=== PATIENT | female | born 1985 | race Caucasian/White ===

== ENCOUNTER → 2017-05-20 15:27 | Outpatient (CLI) | payer OTHER, SELFPAY ==
[2017-05-20 14:38] VITALS: BP 118/84; BMI 22.6
[2017-05-20 17:49] LABS: Calcium,Total 8.4 mg/dL (8.5-10.1); Free T3 2.4 pg/mL (2.18-3.98); T4 Free Direct 1.07 ng/dL (0.76-1.46); Thyroid Stim Hormone (TSH) 2.08 uIU/mL (0.358-3.74)
== END ==
PROVIDERS: Family Provider Family Medicine; PCP Family Medicine; Visit Provider Nurse Practitioner
DX: E03.9 Hypothyroidism, unspecified (principal); E83.51 Hypocalcemia
CPT/HCPCS: 36415; 82310; 82652; 84439; 84443; 84481

== ENCOUNTER → 2017-05-26 15:26 | Outpatient (CLI) | payer OTHER, SELFPAY ==
[2017-05-31 13:00] LABS: HPV Reflexed? NOT INDICATED
== END ==
PROVIDERS: Family Provider Family Medicine; PCP Family Medicine; Visit Provider Obstetrics & Gynecology
DX: Z12.4 Encounter for screening for malignant neoplasm of cervix (principal)
CPT/HCPCS: 88175; G0145

== ENCOUNTER → 2017-10-20 13:24 | Outpatient (CLI) | payer OTHER, SELFPAY ==
[2017-10-20 15:27] LABS: Thyroid Stim Hormone (TSH) 0.09 uIU/mL (0.358-3.74)
== END ==
PROVIDERS: Family Provider Family Medicine; PCP Family Medicine; Visit Provider Family Medicine
DX: E03.9 Hypothyroidism, unspecified (principal)
CPT/HCPCS: 36415; 84443

== ENCOUNTER → 2017-12-03 06:19 | Outpatient (CLI) | payer OTHER, SELFPAY ==
[2017-12-03 07:45] LABS: Free T3 2.6 pg/mL (2.18-3.98); T4 Free Direct 1.09 ng/dL (0.76-1.46); Thyroid Stim Hormone (TSH) 5.03 uIU/mL (0.358-3.74)
== END ==
PROVIDERS: Family Provider Family Medicine; PCP Family Medicine; Visit Provider Nurse Practitioner
DX: E07.9 Disorder of thyroid, unspecified (principal)
CPT/HCPCS: 36415; 84439; 84443; 84481

== ENCOUNTER → 2017-12-21 14:25 | Outpatient (CLI) | payer OTHER, SELFPAY ==
--- NOTE | 2017-12-21 14:27 | US_ITS ---
STUDY: THYROID ULTRASOUND REASON FOR EXAM: Female, 32 years old. Hypothyroidism, difficulty swallowing TECHNIQUE: Ultrasound evaluation of the thyroid was performed with real-time and static yen-scale imaging. COMPARISON: None. FINDINGS: RIGHT LOBE: The right lobe of the thyroid gland measures 3.5 x 1.4 x 1.2 cm. There is a heterogeneous echotexture. There are 4 hypoechoic nodules of the right thyroid lobe located throughout the mid to lower pole, measuring 1.0 x 0.6 x 0.4 cm, 0.5 x 0.5 x 0.3 cm, 0.5 x 0.4 x 0.3 cm, and 0.4 x 0.3 x 0.2 cm. LEFT LOBE: The left lobe of the thyroid gland measures 4.0 x 1.4 x 1.1 cm. There is a heterogeneous echotexture. There are 2 hypoechoic nodules of the upper and lower pole of the left thyroid lobe measuring 0.7 x 0.7 x 0.6 cm and 0.5 x 0.3 x 0.5 cm. ISTHMUS: The isthmus measures 2 mm . The regional lymph nodes are normal. US/Thyroid IMPRESSION: Bilateral thyroid nodules as detailed above. Electronically Signed: David Tobias MD at 16:17 EDT , Service support ,
== END ==
PROVIDERS: Family Provider Family Medicine; PCP Family Medicine; Visit Provider Nurse Practitioner
DX: E03.9 Hypothyroidism, unspecified (principal)
CPT/HCPCS: 76536

== ENCOUNTER → 2018-01-31 15:15 | Outpatient (CLI) | payer OTHER, SELFPAY ==
[2018-01-31 17:13] LABS: Thyroid Stim Hormone (TSH) 1.18 uIU/mL (0.358-3.74)
== END ==
PROVIDERS: Family Provider Family Medicine; PCP Family Medicine; Referring Provider Family Medicine; Visit Provider Family Medicine
DX: E03.9 Hypothyroidism, unspecified (principal)
CPT/HCPCS: 36415; 84443

== ENCOUNTER → 2018-09-12 14:22 | Outpatient (CLI) | payer OTHER, SELFPAY ==
[2018-09-12 10:36] VITALS: BMI 22.6
== END ==
PROVIDERS: Family Provider Family Medicine; PCP Family Medicine; Referring Provider Physician Assistant; Visit Provider Physician Assistant
DX: J02.9 Acute pharyngitis, unspecified (principal)
CPT/HCPCS: 87081

== ENCOUNTER → 2018-10-26 14:56 | Outpatient (CLI) | payer OTHER, SELFPAY ==
[2018-09-12 10:36] VITALS: BMI 22.6
[2018-10-26 18:10] LABS: Free T3 2.2 pg/mL (2.18-3.98); T4 Free Direct 1.14 ng/dL (0.76-1.46); Thyroid Stim Hormone (TSH) 0.52 uIU/mL (0.358-3.74)
== END ==
PROVIDERS: Family Provider Family Medicine; PCP Family Medicine; Referring Provider Family Medicine; Visit Provider Family Medicine
DX: E03.9 Hypothyroidism, unspecified (principal)
CPT/HCPCS: 36415; 84439; 84443; 84481

== ENCOUNTER → 2019-04-13 17:01 | Outpatient (CLI) | payer OTHER, SELFPAY ==
[2019-04-13 11:51] VITALS: BMI 22.6
[2019-04-13 20:32] LABS: Chlamydia Trachomatis by PCR Negative (Negative); Neisserai gonorrhoeae by PCR Negative (Negative); Probe Check PASS; Sample Adequacy Control PASS; Specimen Processing Control PASS
== END ==
PROVIDERS: Family Provider Family Medicine; PCP Family Medicine; Referring Provider Obstetrics & Gynecology; Visit Provider Obstetrics & Gynecology
DX: Z34.90 Encounter for supervision of normal pregnancy, unspecified, unspecified trimester (principal)
CPT/HCPCS: 87086; 87491; 87591; 96374

== ENCOUNTER → 2019-04-17 16:50 | Outpatient (CLI) | payer OTHER, SELFPAY ==
[2019-04-13 11:51] VITALS: BMI 22.6
[2019-04-17 18:09] LABS: Absolute Lymphocyte Count 1.62 X10^3/uL (0.83-4.51); Absolute Neutrophil Count 6.7 X10^3/uL (2.0-7.7); Basophil# 0.01 X10^3/uL; Basophil% 0.1 % (0-1); Eosinophil# 0.14 X10^3/uL; Eosinophils% 1.6 % (0-5); Hematocrit 35.6 % (37-47); Hemoglobin 12.2 g/dL (12.0-15.0); Lymphocyte # 1.62 X10^3/ul (4.0); Lymphocyte % 18.1 % (19-41); Mean Corp Hgb Conc 34.3 g/dL (32-36); Mean Corpuscular Hgb 30.6 pg (27.0-32.0); Mean Corpuscular Volume 89.2 fL (81-99); Mean Platelet Vol. 11.3 fl (6.2-12.0); Monocyte# 0.48 X10^3/uL; Monocyte% 5.4 % (0-10); NRBC Flagged by Analyzer 0 % (0-5); Neutrophil # 6.69 X10^3/uL (2.7-7.7); Neutrophil % 74.6 % (47-70); Platelet Count 321 K/mm3 (150-450); RBC Distribution Width CV 11.9 % (11.6-14.6); RBC Distribution Width SD 38.8 fl (35.1-43.9); Red Blood Count 3.99 M/mm3 (4.2-5.4)
[2019-04-17 18:14] LABS: Protein, Urine (Random) 29.2 mg/dL (<11.9); Protein:Creat Ratio 124 mg/g CRE (0-200)
[2019-04-17 18:31] LABS: ALB/GLOB Ratio 0.8 RATIO (0.9-2.4); AST(SGOT) 10 U/L (15-37); Alanine Aminotransfer ALT/SGPT 14 U/L (13-56); Albumin, Serum 3.1 g/dL (3.2-5.0); Alkaline Phosphatase 56 U/L (45-117); Anion Gap 4 (5-15); BUN 9 mg/dL (7-18); BUN/Creat Ratio 11.8 RATIO (10-20); Calcium,Total 8.4 mg/dL (8.5-10.1); Chloride 106 mmol/L (98-107); Creatinine, Serum 0.76 mg/dL (0.55-1.02); EST Glomerular Filtration Rate 94 mL/min (>60); Est Glom Filt Rate - Afr Amer 113 mL/min (>60); Globulin 3.8 g/dL (2.2-4.2); Glucose 88 mg/dL (74-106); Potassium 3.3 mmol/L (3.5-5.1); Protein, Total 6.9 g/dL (6.4-8.2); Sodium Level 137 mmol/L (136-145)
[2019-04-18 10:15] LABS: Hepatitis B Surface Antigen Non-Reactive (Nonreactive); Hepatitis C Antibody Non-Reactive (Nonreactive); Rubella IgG > 500.0 IU/mL
[2019-04-19 19:40] LABS: Rapid Plasmin Reagin (RPR) NONREACTIVE (NONREACTIVE)
[2019-04-20 16:14] LABS: HIV - WCH Non-Reactive (Nonreactive)
== END ==
PROVIDERS: Family Provider Family Medicine; PCP Family Medicine; Referring Provider Obstetrics & Gynecology; Visit Provider Obstetrics & Gynecology
DX: O09.299 Supervision of pregnancy with other poor reproductive or obstetric history, unspecified trimester (principal)
CPT/HCPCS: 36415; 80053; 82570; 84156; 85025; 86592; 86703; 86762; 86803; 86850; 86900; 86901; 87340

== ENCOUNTER → 2019-05-12 11:32 | Outpatient (CLI) | payer OTHER, SELFPAY ==
[2019-05-12 11:07] VITALS: BMI 22.6
[2019-05-12 12:55] LABS: Potassium 3.3 mmol/L (3.5-5.1); Thyroid Stim Hormone (TSH) 3.33 uIU/mL (0.358-3.74)
== END ==
PROVIDERS: PCP Family Medicine; Referring Provider Obstetrics & Gynecology; Visit Provider Obstetrics & Gynecology
DX: R53.83 Other fatigue (principal)
CPT/HCPCS: 36415; 84132; 84439; 84443

== ENCOUNTER → 2019-06-09 11:24 | Outpatient (CLI) | payer OTHER, SELFPAY ==
[2019-06-09 11:12] VITALS: BMI 22.6
[2019-06-09 12:46] LABS: ALB/GLOB Ratio 0.6 RATIO (0.9-2.4); AST(SGOT) 16 U/L (15-37); Alanine Aminotransfer ALT/SGPT 17 U/L (13-56); Albumin, Serum 2.6 g/dL (3.2-5.0); Alkaline Phosphatase 51 U/L (45-117); Anion Gap 6 (5-15); BUN 10 mg/dL (7-18); BUN/Creat Ratio 15.3 RATIO (10-20); Calcium,Total 8.2 mg/dL (8.5-10.1); Chloride 107 mmol/L (98-107); Creatinine, Serum 0.65 mg/dL (0.55-1.02); EST Glomerular Filtration Rate 112 mL/min (>60); Est Glom Filt Rate - Afr Amer 135 mL/min (>60); Glucose 79 mg/dL (74-106); Potassium 3.4 mmol/L (3.5-5.1); Protein, Total 6.6 g/dL (6.4-8.2); Sodium Level 136 mmol/L (136-145)
== END ==
PROVIDERS: PCP Family Medicine; Referring Provider Obstetrics & Gynecology; Visit Provider Obstetrics & Gynecology
DX: E87.6 Hypokalemia (principal)
CPT/HCPCS: 36415; 80053

== ENCOUNTER → 2019-06-16 16:06 | Outpatient (CLI) | payer OTHER, SELFPAY ==
[2019-05-12 11:07] VITALS: BMI 22.6
[2019-06-09 11:12] VITALS: BMI 22.6
--- NOTE | 2019-06-16 16:07 | US_ITS ---
STUDY: SECOND AND THIRD TRIMESTER OBSTETRICAL ULTRASOUND REASON FOR EXAM: Female, 33 years old routine survey, anatomy check LMP: Unknown. TECHNIQUE: Transabdominal and Transvaginal TECHNICAL QUALITY: Adequate. PRIOR ULTRASOUND: No recent studies FINDINGS: There is a single intrauterine fetus. The fetus is in a cephalic presentation. There is demonstrated cardiac activity with a heart rate of 149 bpm. There is a normal amniotic fluid volume. The largest amniotic fluid pocket measures 4.7 cm. . The placenta is anterior with a marginal previa, short-term follow-up to assure migration away from the cervix. There are Grade 0 placental changes. The cervix measures 3.9 cm in length. The bilateral adnexal regions are normal. BIOMETRY: BPD: 4.4 cm: 19 weeks, 3 days HC: 16.3 cm: 19 weeks, 1 days AC: 13.5 cm: 19 weeks, 0 days FL: 3.0 cm: 19 weeks, 2 days age by current US: 19 weeks, 2 days. OLIMPIA by current US: 11/08/2019. Estimated weight: 271 grams, +/- 40 grams, 32 %. ANATOMY: Gender: Indeterminant Cranium: Normal lateral ventricles. Normal choroid plexus. Normal cerebellum. Normal cisterna magna. Normal face, nose and lips. Chest: Normal 4-chamber heart. Abdomen/Pelvis: Normal diaphragm. Normal stomach. Normal abdominal wall. Normal cord insertion. Normal 3 vessel cord. Normal kidneys. Normal bladder. Spine: There is limited evaluation of the cervical, thoracic, lumbar spine, and sacrum Extremities: Normal bilateral upper extremities. Normal bilateral lower extremities. US/OB Anatomy Scan IMPRESSION: Single live intrauterine 19 weeks, 2 days by current ultrasound with OLIMPIA 11/08/2019 and heart rate at 149 bpm. Placenta is anterior but marginal previa. Short-term follow-up is recommended to sugar migration of the placenta away from the cervix. spine not well visualized due to positioning, recommend evaluation of the spine at the follow-up studies for the placenta to assure normalcy of the spine. Other anatomy was sonographically normal Electronically Signed: Omid Licona MD at 8:56 EDT , Service support ,
== END ==
PROVIDERS: PCP Family Medicine; Referring Provider Obstetrics & Gynecology; Visit Provider Obstetrics & Gynecology
DX: Z36.86 Encounter for antenatal screening for cervical length (principal); Z3A.19 19 weeks gestation of pregnancy
CPT/HCPCS: 76805; 76817

== ENCOUNTER → 2019-07-07 10:53 | Outpatient (CLI) | payer OTHER, SELFPAY ==
[2019-06-09 11:12] VITALS: BMI 22.6
[2019-07-07 10:28] VITALS: BMI 22.6
[2019-07-07 12:11] LABS: Magnesium 1.5 mg/dL (1.6-2.6); Potassium 3.8 mmol/L (3.5-5.1); T4 Free Direct 1.09 ng/dL (0.76-1.46); Thyroid Stim Hormone (TSH) 1.93 uIU/mL (0.358-3.74)
== END ==
PROVIDERS: Obstetrics & Gynecology; PCP Family Medicine; Referring Provider Family Medicine; Visit Provider Family Medicine
DX: E87.6 Hypokalemia (principal); E07.9 Disorder of thyroid, unspecified
CPT/HCPCS: 36415; 83735; 84132; 84439; 84443

== ENCOUNTER → 2019-07-27 11:28 | Outpatient (CLI) | payer OTHER, SELFPAY ==
[2019-07-07 10:28] VITALS: BMI 22.6
[2019-07-27 12:27] LABS: Absolute Neutrophil Count 7.6 X10^3/uL (2.0-7.7); Basophil# 0.02 X10^3/uL; Basophil% 0.2 % (0-1); Hematocrit 34.6 % (37-47); Hemoglobin 11.6 g/dL (12.0-15.0); Lymphocyte % 15.5 % (19-41); Mean Corp Hgb Conc 33.5 g/dL (32-36); Mean Corpuscular Hgb 29.9 pg (27.0-32.0); Mean Corpuscular Volume 89.2 fL (81-99); Mean Platelet Vol. 11.1 fl (6.2-12.0); Monocyte# 0.46 X10^3/uL; Monocyte% 4.8 % (0-10); NRBC Flagged by Analyzer 0 % (0-5); Neutrophil # 7.55 X10^3/uL (2.7-7.7); Platelet Count 305 K/mm3 (150-450); RBC Distribution Width CV 11.8 % (11.6-14.6); Red Blood Count 3.88 M/mm3 (4.2-5.4); White Blood Count 9.7 K/mm3 (4.4-11.0)
[2019-07-27 13:39] LABS: ALB/GLOB Ratio 0.6 RATIO (0.9-2.4); AST(SGOT) 17 U/L (15-37); Alanine Aminotransfer ALT/SGPT 13 U/L (13-56); Albumin, Serum 2.5 g/dL (3.2-5.0); Alkaline Phosphatase 63 U/L (45-117); Anion Gap 9 (5-15); BUN 6 mg/dL (7-18); BUN/Creat Ratio 8.9 RATIO (10-20); Calcium,Total 8.7 mg/dL (8.5-10.1); Chloride 107 mmol/L (98-107); Creatinine, Serum 0.68 mg/dL (0.55-1.02); EST Glomerular Filtration Rate 107 mL/min (>60); Est Glom Filt Rate - Afr Amer 130 mL/min (>60); Free T3 1.8 pg/mL (2.18-3.98); Glucose 112 mg/dL (74-106); Magnesium 1.5 mg/dL (1.6-2.6); Potassium 3.9 mmol/L (3.5-5.1); Protein, Total 6.5 g/dL (6.4-8.2); Sodium Level 139 mmol/L (136-145); T4 Free Direct 1.06 ng/dL (0.76-1.46); Thyroid Stim Hormone (TSH) 2.81 uIU/mL (0.358-3.74)
== END ==
LOC: LAB.FUTURE 11:30 → LAB 07-28 06:53
PROVIDERS: PCP Family Medicine; Referring Provider Family Medicine; Visit Provider Family Medicine
DX: E03.9 Hypothyroidism, unspecified (principal); E87.6 Hypokalemia; R53.83 Other fatigue; R05 Cough; E83.42 Hypomagnesemia
CPT/HCPCS: 36415; 80053; 83735; 84439; 84443; 84481; 85025

== ENCOUNTER → 2019-08-16 07:53 | Outpatient (CLI) | payer OTHER, SELFPAY ==
[2019-06-09 11:12] VITALS: BMI 22.6
[2019-08-03 14:14] VITALS: BMI 22.6
--- NOTE | 2019-08-16 07:54 | US_ITS ---
STUDY: SECOND AND THIRD TRIMESTER OBSTETRICAL ULTRASOUND - LIMITED REASON FOR EXAM: Female, 33 years old F/U ANATOMY SCAN LMP: January 31, 2019. PRIOR ULTRASOUND: Comparison is made with prior ultrasound examination dated June 16, 2019. TECHNIQUE: Transabdominal TECHNICAL QUALITY: Adequate. FINDINGS: There is a single intrauterine fetus. The fetus is in a cephalic presentation. There is demonstrated cardiac activity with a heart rate of 122 bpm. There is a normal amniotic fluid volume. The largest amniotic fluid pocket measures 5.5 cm x 5.4 cm. The amniotic fluid index (JENNA) is within normal limits. The placenta is anterior in location and is not low lying. There are Grade 1 placental changes. The cervix measures 3.6 cm in length. BIOMETRY: BPD: 7.11 cm: 28 weeks, 3 days HC: 25.86 cm: 28 weeks, 0 days AC: 24.07 cm: 28 weeks, 2 days FL: 4.73 cm: 25 weeks, 5 days Age by LMP: 28 weeks, 0 days. OLIMPIA by LMP: November 08, 2019. age by prior US: 28 weeks, 0 days. OLIMPIA by prior US: November 08, 2019. age by current US: 27 weeks, 2 days. OLIMPIA by current US: November 13, 2019. Estimated weight: 1081 grams, +/- 160 grams, 17.5 percentile. The spine was imaged. It is within normal limits. US/OB Limited With Biometrics IMPRESSION: Single live intrauterine gestation with a mean gestational age of 28 weeks. The measurements obtained today fall within the normal expected range. There is no evidence of placenta previa. spine is unremarkable. Electronically Signed: Pascual Oropeza, at 10:12 EDT , Service support ,
[2019-08-16 11:14] LABS: Absolute Lymphocyte Count 1.52 X10^3/uL (0.83-4.51); Absolute Neutrophil Count 9.2 X10^3/uL (2.0-7.7); Basophil# 0.02 X10^3/uL; Basophil% 0.2 % (0-1); Eosinophil# 0.09 X10^3/uL; Eosinophils% 0.8 % (0-5); Hematocrit 33.6 % (37-47); Hemoglobin 11.5 g/dL (12.0-15.0); Lymphocyte # 1.52 X10^3/ul (4.0); Lymphocyte % 13.3 % (19-41); Mean Corp Hgb Conc 34.2 g/dL (32-36); Mean Corpuscular Hgb 30.7 pg (27.0-32.0); Mean Corpuscular Volume 89.6 fL (81-99); Mean Platelet Vol. 10.8 fl (6.2-12.0); Monocyte# 0.52 X10^3/uL; Monocyte% 4.6 % (0-10); NRBC Flagged by Analyzer 0 % (0-5); Neutrophil # 9.19 X10^3/uL (2.7-7.7); Neutrophil % 80.6 % (47-70); Platelet Count 282 K/mm3 (150-450); Red Blood Count 3.75 M/mm3 (4.2-5.4); White Blood Count 11.4 K/mm3 (4.4-11.0)
[2019-08-16 11:38] LABS: Glucose Challenge Gest 1H 50g 120 mg/dL (70-140)
== END ==
PROVIDERS: Nurse Practitioner Women's Health; PCP Family Medicine; Referring Provider Obstetrics & Gynecology; Visit Provider Obstetrics & Gynecology
DX: O44.20 Partial placenta previa NOS or without hemorrhage, unspecified trimester (principal); Z3A.26 26 weeks gestation of pregnancy
CPT/HCPCS: 36415; 76816; 82950; 85025

== ENCOUNTER → 2019-10-12 | Outpatient (CLI) | payer OTHER, SELFPAY ==
[2019-10-12 11:33] VITALS: BMI 22.6
== END | disposition home or self-care (01) ==
LOC: LABSPEC 16:44
PROVIDERS: PCP Family Medicine; Referring Provider Obstetrics & Gynecology; Visit Provider Obstetrics & Gynecology
DX: Z34.93 Encounter for supervision of normal pregnancy, unspecified, third trimester (principal); Z3A.36 36 weeks gestation of pregnancy
CPT/HCPCS: 87077; 87081; 87186

== ENCOUNTER 2019-10-17 08:54 | Inpatient (IN) | payer OTHER, SELFPAY ==
[2019-10-12 11:33] VITALS: BMI 22.6
[2019-10-16] VITALS (12 sets, daily range): BP systolic 143–178; BP diastolic 87–100; PULSE 53–71; TEMP 37.3; O2SAT 99; BMI 26.6
[2019-10-16] MEDS: Acetaminophen 500 MG Tablet 1000 MG PO (21:19)
[2019-10-16 21:21] LABS: ROM Internal Control Test YES-OK TO RESULT pt. (Internal QC); ROM Patient Test Negative (Negative)
[2019-10-16 21:35] LABS: Hematocrit 34.9 % (37-47); Hemoglobin 11.8 g/dL (12.0-15.0); Mean Corp Hgb Conc 33.8 g/dL (32-36); Mean Corpuscular Hgb 30.4 pg (27.0-32.0); Mean Corpuscular Volume 89.9 fL (81-99); Mean Platelet Vol. 13.2 fl (6.2-12.0); Platelet Count 194 K/mm3 (150-450); RBC Distribution Width CV 12.9 % (11.6-14.6); RBC Distribution Width SD 41.9 fl (35.1-43.9); Red Blood Count 3.88 M/mm3 (4.2-5.4); White Blood Count 9.3 K/mm3 (4.4-11.0)
[2019-10-16 21:43] LABS: Protein, Urine (Random) 19.8 mg/dL (<11.9); Protein:Creat Ratio 287 mg/g CRE (0-200)
[2019-10-16 21:46] LABS: AST(SGOT) 17 U/L (15-37); Alanine Aminotransfer ALT/SGPT 11 U/L (13-56); Creatinine, Serum 0.94 mg/dL (0.55-1.02); EST Glomerular Filtration Rate 73 mL/min (>60); Est Glom Filt Rate - Afr Amer 89 mL/min (>60); Estimated Creatinine Clearance 67.95 ml/min; Uric Acid 6.9 mg/dL (2.6-6.0)
[2019-10-16 21:52] LABS: Prothrombin Time (Protime)PT. 12.6 SECONDS (11.7-14.9)
[2019-10-16 21:53] LABS: Partial Thromboplast Time 27.4 Seconds (24.1-36.2)
[2019-10-16] MEDS: Mag Hydrox/Al Hydrox/Simeth 30 ML UDC PO (23:41)
[2019-10-17] VITALS (65 sets, daily range): BP systolic 126–161; BP diastolic 82–97; PULSE 55–111; RESP 14–16; TEMP 35.7–37.9; O2SAT 96–100
[2019-10-17] MEDS: Sodium Citrate/Citric Acid 30 ML UDC PO (03:46)
[2019-10-17] MEDS: Betamethasone/Betamethasone 30 MG/5 ML Vial 12 MG IM (06:31)
[2019-10-17 07:07] LABS: Hematocrit 34.1 % (37-47); Hemoglobin 11.7 g/dL (12.0-15.0); Mean Corp Hgb Conc 34.3 g/dL (32-36); Mean Corpuscular Hgb 30.8 pg (27.0-32.0); Mean Corpuscular Volume 89.7 fL (81-99); Mean Platelet Vol. 13.2 fl (6.2-12.0); Platelet Count 179 K/mm3 (150-450); RBC Distribution Width CV 13.1 % (11.6-14.6); RBC Distribution Width SD 42.2 fl (35.1-43.9)
[2019-10-17 07:19] LABS: Anion Gap 5 (5-15); BUN 11 mg/dL (7-18); BUN/Creat Ratio 12.4 RATIO (10-20); Calcium,Total 7.9 mg/dL (8.5-10.1); Chloride 108 mmol/L (98-107); Creatinine, Serum 0.89 mg/dL (0.55-1.02); EST Glomerular Filtration Rate 79 mL/min (>60); Est Glom Filt Rate - Afr Amer 95 mL/min (>60); Estimated Creatinine Clearance 71.77 ml/min; Glucose 80 mg/dL (74-106); Potassium 3.7 mmol/L (3.5-5.1); Sodium Level 138 mmol/L (136-145)
[2019-10-17 07:23] LABS: Protein:Creat Ratio 261 mg/g CRE (0-200)
--- NOTE | 2019-10-17 08:00 | US_ITS ---
STUDY: SECOND AND THIRD TRIMESTER OBSTETRICAL ULTRASOUND REASON FOR EXAM: Female, 34 years old growth LMP: February 01, 2019. TECHNIQUE: Transabdominal TECHNICAL QUALITY: Adequate. PRIOR ULTRASOUND: Comparison is made with prior examination dated August 16, 2019. FINDINGS: There is a single intrauterine fetus. The fetus is in a cephalic presentation. There is demonstrated cardiac activity with a heart rate of 124 bpm. There is a normal amniotic fluid volume. The largest amniotic fluid pocket measures 3.8 cm. The amniotic fluid index (JENNA) is 9.3 cm. The placenta is anterior in location and is not low lying. There are Grade 2 placental changes. The cervix was not measured due to head position. The adnexal regions are not visualized. BIOMETRY: BPD: 8.96 cm: 36 weeks, 2 days HC: 32.23 cm: 36 weeks, 3 days AC: 31.92 cm: 35 weeks, 6 days FL: 6.75 cm: 34 weeks, 5 days CI: 82% FL/BPD: 75% FL/HC: FL/AC: 21% HC/AC: 1.01 age by current US: 35 weeks, 6 days. OLIMPIA by current US: November 15, 2019. Estimated weight: 2733 grams, +/- 399 grams, 24 %. age by prior US: 36 weeks, 1 days. OLIMPIA by prior US: November 13, 2019. Age by LMP: 36 weeks, 6 days. OLIMPIA by LMP: November 08, 2019. US/OB Limited With Biometrics IMPRESSION: Single live intrauterine gestation with a mean gestational age of 36 weeks and 1 day. There has been good interval growth as compared to prior study. Electronically Signed: Pascual Oropeza, at 8:13 EDT , Service support ,
[2019-10-17 08:17] LABS: ALB/GLOB Ratio 0.6 RATIO (0.9-2.4); AST(SGOT) 19 U/L (15-37); Alanine Aminotransfer ALT/SGPT 12 U/L (13-56); Albumin, Serum 2.1 g/dL (3.2-5.0); Alkaline Phosphatase 146 U/L (45-117); Globulin 3.5 g/dL (2.2-4.2); Protein, Total 5.6 g/dL (6.4-8.2)
--- NOTE | 2019-10-17 08:48 | HP.PCM_ITS ---
- Problem List (1) Preeclampsia, severe Status: Acute (2) GBS (group B Streptococcus carrier), +RV culture, currently Status: Acute Comment: tx with PCN in labor. (3) Hypokalemia Status: Acute Comment: 40 mEq Kdur daily, saw PCP for this also. (4) History of severe pre-eclampsia Status: Acute Comment: 81 mg asa at 16 weeks, baseline labs. (5) Status: Acute Qualifiers: Weeks of gestation: 36 weeks Qualified Code(s): Z3A.36 - 36 weeks gestation of Comment: carrier, nipt, and ntd screening declined. anatomy reviewed. (6) Supervision of high risk , antepartum Status: Acute Comment: PRR OLIMPIA 11/08/19 surprise Liz Arthur Shubham (7) Anxiety and depression Status: Acute Comment: Prozac. celexa in past, counseling. (8) Thyroid disease Status: Acute Comment: managed by Jonathon Marcum History Date of Admission: 10/17/19 Final OLIMPIA: 11/08/19 Gestational age: 36 Weeks and 6 Days History of this : This is a 34 year-old, at 36w6d with a history of severe preeclampsia with her first presents for questionable rupture membranes and upon evaluation blood pressures were in the mild to severely elevated range. Patient was monitored overnight his blood pressure seem to be decreasing and then the r ose again in the morning to 160/93. Normal growth and fluid but elevated uric acid and borderline proteinuria was noted upon evaluation. Decision for proceeding with delivery due to suspected preeclampsia with severe features. Patient denies any headaches or blurry vision has had occasional contractions no vaginal bleeding or loss of fluid. Medical History: Medical History (Last Reviewed 10/12/19 @ 11:32 by Dacia Abdalla) Anxiety and depression (Acute) F41.8 Prozac. celexa in past, counseling. Thyroid disease (Acute) E07.9 managed by Jonathon Marcum H/O cardiac murmur Z86.79 Headache, migraine G43.909 Seasonal allergies J30.2 Allergies No Known Allergies Allergy (Verified 10/16/19 19:57) Home Medications: Home Medications L.acidoph,Paracasei, B.lactis [Probiotic] 1 ea PO DAILY 05/21/16 levothyroxine 100 mcg tablet 100 mcg PO DAILY #30 tab 12/06/17 aspirin 81 mg tablet,delayed release 81 mg PO DAILY 07/07/19 breast pump See Rx Instructions .ROUTE .MEDSUPPLY #1 ea 09/28/19 Tablet 1 tab PO DAILY 10/16/19 Prozac PRN 10/16/19 Smoking Status: Never smoker Number of Fetus(es): 1 NST - FHR Rate Baby A Baseline: 130 Variability:: Moderate Accelerations:: 15 x 15 Decelerations:: None NST Reactive:: Yes FHR Category:: Category I Uterine Activity:: Irregular History Past Pregnancies: Past Pregnancies Pregancy History 3 Elective abortions Hx Para 2 Spontaneous abortions Hx # Term Pregnancies Ectopic pregnancies Hx # Pregnancies Multiple births # of living children Past Pregnancies Del. Date Name GA/Weeks Outcome Route Bth Weight Infant Gen Labor Lgth Anesthesia Del [facility] Provider FOB 06/25/12 Connor 35 live - Male epidural [facility] Dr. José Miguel Jalloh 12/05/13 Liz 37 live - full term NS VD Female none [facility] Dr. José Miguel Jalloh Delivery Date: 06/25/12 On 01/06/18 @ 13:00 Rianna Cohn Severe pre-eclampsia Delivery Date: 12/05/13 On 01/06/18 @ 13:01 Rianna Cohn No issues during or delivery. Labs: Mom's Labs & Results 10/16/19 10/16/19 10/16/19 20:19 21:15 21:15 WBC 9.3 RBC 3.88 L Hgb 11.8 L Hct 34.9 L MCV 89.9 MCH 30.4 MCHC 33.8 RDW Std Deviation 41.9 RDW Coeff of Jaime 12.9 Plt Count 194 MPV 13.2 H PT 12.6 INR 1.0 APTT 27.4 Sodium Potassium Chloride Carbon Dioxide Anion Gap BUN Creatinine Estim Creat Clear Calc Est GFR (MDRD) Af Amer Est GFR (MDRD) Non-Af BUN/Creatinine Ratio Glucose Uric Acid Calcium Total Bilirubin AST ALT Alkaline Phosphatase Total Protein Albumin Globulin Albumin/Globulin Ratio U Random Total Protein Urine Creatinine Protein/Creatinin Ratio Vag Amniotic Fld Detect Negative 10/16/19 10/16/19 10/17/19 21:15 21:25 06:35 WBC 8.0 RBC 3.80 L Hgb 11.7 L Hct 34.1 L MCV 89.7 MCH 30.8 MCHC 34.3 RDW Std Deviation 42.2 RDW Coeff of Jaime 13.1 Plt Count 179 MPV 13.2 H PT INR APTT Sodium Potassium Chloride Carbon Dioxide Anion Gap BUN Creatinine 0.94 Estim Creat Clear Calc 67.95 Est GFR (MDRD) Af Amer 89 Est GFR (MDRD) Non-Af 73 BUN/Creatinine Ratio Glucose Uric Acid 6.9 H Calcium Total Bilirubin AST 17 ALT 11 L Alkaline Phosphatase Total Protein Albumin Globulin Albumin/Globulin Ratio U Random Total Protein 19.8 H Urine Creatinine 68.90 Protein/Creatinin Ratio 287 H Vag Amniotic Fld Detect 10/17/19 10/17/19 06:35 06:35 WBC RBC Hgb Hct MCV MCH MCHC RDW Std Deviation RDW Coeff of Jaime Plt Count MPV PT INR APTT Sodium 138 Potassium 3.7 Chloride 108 H Carbon Dioxide 25.0 Anion Gap 5 BUN 11 Creatinine 0.89 Estim Creat Clear Calc 71.77 Est GFR (MDRD) Af Amer 95 Est GFR (MDRD) Non-Af 79 BUN/Creatinine Ratio 12.4 Glucose 80 Uric Acid Calcium 7.9 L Total Bilirubin 0.20 AST 19 ALT 12 L Alkaline Phosphatase 146 H Total Protein 5.6 L Albumin 2.1 L Globulin 3.5 Albumin/Globulin Ratio 0.6 L U Random Total Protein 41.0 H Urine Creatinine 157.00 Protein/Creatinin Ratio 261 H Vag Amniotic Fld Detect Social History Smoking Status Never smoker Expected Infant Delivery Method: Spontaneous Vaginal Review of Systems Constitutional: Denies: Fever, Malaise Eyes: Denies: Blurred vision, Vision Change HEENT: Denies: Head Aches, Visual Changes Cardiovascular: Denies: Chest Pain, Palpitations Respiratory: Denies: Cough, Shortness of Breath, Wheezing Gastrointestinal: Denies: Abdominal Pain, Diarrhea, Nausea, Vomiting Genitourinary: Denies: Dysuria, Hematuria Gynecological: Reports: Vaginal discharge Musculoskeletal: Denies: Joint Pain, Muscle pain Skin: Denies: Lesions, Rash Neurological: Denies: Blurred vision, Focal weakness, Headaches Psychiatric: Denies: Anxiety, Depression Endocrine: Denies: Heat/ Cold Intolerance Hematologic/ Lymphatic: Denies: Easy Bruising, Easy Bleeding Physical Exam Vitals: Vital Signs Temp Pulse BP Pulse Ox 96.3 F L 81 161/97 H 99 10/17/19 00:30 10/17/19 08:45 10/17/19 08:45 10/17/19 03:10 General: Alert, Cooperative, No apparent distress HEENT: Atraumatic, Normocephalic. Negative for: Thyromegaly, Lymphadenopathy Cardiovascular: Regular rate Lungs: Normal air movement Abdomen: Soft, Non Tender, Gravid Neurological: Deep Tendon Reflexes 2+/4 and Symmetrical, Neuro grossly intact. Negative for: Clonus SIGNAL AND COMMUNICATIONS MAINTAINER: Normal external genitalia. Negative for: Vulvar lesions Estimated gestational size: Appropriate for gestational size Presentation: Cephalic Assessment/Plan All Active Problems (Last Reviewed 10/12/19 @ 11:32 by Dacia Abdalla) Preeclampsia, severe (Acute) GBS (group B Streptococcus carrier), +RV culture, currently (Acute) Hypokalemia (Acute) History of severe pre-eclampsia (Acute) (Acute) Supervision of high risk , antepartum (Acute) Anxiety and depression (Acute) Thyroid disease (Acute) Costochondritis, acute (Resolved) Hypothyroidism (acquired) (Resolved) Marginal placenta previa (Resolved) Pharyngitis (Resolved) Segmental and somatic dysfunction of cervical region (Resolved) Segmental and somatic dysfunction of lumbar region (Resolved) Segmental and somatic dysfunction of thoracic region (Resolved) Uses [facility] pharmacy (Resolved) This is a 34 year-old, at 36w6d weeks gestational age presents with preeclampsia with severe features. Patient presents IOL, plan management for , pitocin/AROM when able Pain management: minimal intervention. GBS positive. Management of any complications: HTN protocol PRN, magnesium sulfate if severely elevated bps I have reviewed the ON LICENSE OF [facility] and made any clinically relevant updates.
[2019-10-17] MEDS: Lactated Ringers 1,000 ML 50 ML IV (09:15)
[2019-10-17] MEDS: Magnesium Sulfate 4gm/100mL 4 GM/100 ML IV.SOLN. IV (09:25)
[2019-10-17] MEDS: Magnesium Sulfate 20 GM/500 ML BAG IV (09:45)
[2019-10-17] MEDS: Oxytocin 30 units/NS 500 ml 30 UNITS/500 ML IV.SOLN IV (10:08)
[2019-10-17] MEDS: Levothyroxine 100 MCG Tablet PO (11:33)
[2019-10-17] MEDS: FLUoxetine 20 MG Capsule PO (11:33)
[2019-10-17] MEDS: Oxytocin 30 units/NS 500 ml 30 UNITS/500 ML IV.SOLN 334 UNITS IV (18:48)
[2019-10-17] MEDS: Carboprost Tromethamine 250 MCG/ML Ampul IM (18:50)
[2019-10-17] MEDS: 0.9% Saline Lock 10 ML Syringe IV (22:20)
--- NOTE | 2019-10-17 22:47 | NURSING ---
This RN assuming care of patient and at this time. Report obtained from Lennie Frost RN.
[2019-10-18] VITALS (13 sets, daily range): BP systolic 123–184; BP diastolic 78–97; PULSE 59–90; RESP 12–16; TEMP 37–37.7
[2019-10-18 06:23] LABS: Absolute Lymphocyte Count 1.81 X10^3/uL (0.83-4.51); Absolute Neutrophil Count 18.9 X10^3/uL (2.0-7.7); Basophil# 0.02 X10^3/uL; Basophil% 0.1 % (0-1); Hematocrit 29.4 % (37-47); Hemoglobin 10.1 g/dL (12.0-15.0); Lymphocyte # 1.81 X10^3/ul (4.0); Lymphocyte % 8.3 % (19-41); Mean Corp Hgb Conc 34.4 g/dL (32-36); Mean Corpuscular Hgb 30.7 pg (27.0-32.0); Mean Corpuscular Volume 89.4 fL (81-99); Mean Platelet Vol. 12.9 fl (6.2-12.0); Monocyte# 0.91 X10^3/uL; Monocyte% 4.2 % (0-10); NRBC Flagged by Analyzer 0 % (0-5); Neutrophil # 18.87 X10^3/uL (2.7-7.7); Neutrophil % 86.5 % (47-70); Platelet Count 216 K/mm3 (150-450); RBC Distribution Width CV 12.9 % (11.6-14.6); Red Blood Count 3.29 M/mm3 (4.2-5.4); White Blood Count 21.8 K/mm3 (4.4-11.0)
[2019-10-18 06:58] LABS: ALB/GLOB Ratio 0.6 RATIO (0.9-2.4); AST(SGOT) 21 U/L (15-37); Alanine Aminotransfer ALT/SGPT 13 U/L (13-56); Alkaline Phosphatase 126 U/L (45-117); Anion Gap 6 (5-15); BUN 8 mg/dL (7-18); Calcium,Total 7.2 mg/dL (8.5-10.1); Chloride 107 mmol/L (98-107); Creatinine, Serum 0.89 mg/dL (0.55-1.02); EST Glomerular Filtration Rate 78 mL/min (>60); Est Glom Filt Rate - Afr Amer 94 mL/min (>60); Estimated Creatinine Clearance 71.77 ml/min; Globulin 3.3 g/dL (2.2-4.2); Glucose 136 mg/dL (74-106); Potassium 4.1 mmol/L (3.5-5.1); Protein, Total 5.3 g/dL (6.4-8.2); Sodium Level 137 mmol/L (136-145)
--- NOTE | 2019-10-18 08:00 | PCM.PN.OB ---
Patient Problems: Active and Suspected Problems (Last Reviewed 10/12/19 @ 11:32 by Dacia Abdalla) Preeclampsia, severe (Acute) Subjective: Doing well, no complaints.Pain controlled. Denies CP, SOB, N,V. Ambulating well, tolerating po. Lochia moderate, going well. - Physical Exam Vitals/I&O's: Vital Signs Temp Pulse Resp BP Pulse Ox 98.6 F 90 14 133/78 H 97 10/18/19 03:19 10/18/19 03:19 10/18/19 03:19 10/18/19 03:19 10/17/19 21:09 Oxygen Delivery Method Room Air Weight: 146 lb Body Mass Index (BMI) 26.6 Intake and Output for Last 24 Hours 10/16/19 10/17/19 10/18/19 23:59 23:59 23:59 Intake Total 2039.67 / 2039.67 Output Total 1400 / 1400 400 / 400 Balance 639.67 / 639.67 -400 / -400 General: Alert, Oriented x3 Abdomen: Soft, Non Tender, - - FF below U Laboratory Results 10/17/19 06:35: Sodium 138, Potassium 3.7, Chloride 108 H, Carbon Dioxide 25.0, Anion Gap 5, BUN 11, Creatinine 0.89, Estim Creat Clear Calc 71.77, Est GFR (MDRD) Af Amer 95, Est GFR (MDRD) Non-Af 79, BUN/Creatinine Ratio 12.4, Glucose 80, Calcium 7.9 L, Total Bilirubin 0.20, AST 19, ALT 12 L, Alkaline Phosphatase 146 H, Total Protein 5.6 L, Albumin 2.1 L, Globulin 3.5, Albumin/Globulin Ratio 0.6 L 10/17/19 09:08: COVID-19 (MANDI) Not Detected 10/17/19 09:15: Blood Type B POSITIVE, Antibody Screen NEGATIVE 10/18/19 06:10: WBC 21.8 H, RBC 3.29 L, Hgb 10.1 L, Hct 29.4 L, MCV 89.4, MCH 30.7, MCHC 34.4, RDW Std Deviation 42.0, RDW Coeff of Jaime 12.9, Plt Count 216, MPV 12.9 H, Immature Gran % (Auto) 0.900, Neut % (Auto) 86.5 H, Lymph % (Auto) 8.3 L, Foster % (Auto) 4.2, Eos % (Auto) 0.0, Baso % (Auto) 0.1, Absolute Neuts (auto) 18.9 H, Absolute Lymphs (auto) 1.81, Nucleated RBC % 0 10/18/19 06:10: Sodium 137, Potassium 4.1, Chloride 107, Carbon Dioxide 24.0, Anion Gap 6, BUN 8, Creatinine 0.89, Estim Creat Clear Calc 71.77, Est GFR (MDRD) Af Amer 94, Est GFR (MDRD) Non-Af 78, BUN/Creatinine Ratio 9.0 L, Glucose 136 H, Calcium 7.2 L, Total Bilirubin 0.20, AST 21, ALT 13, Alkaline Phosphatase 126 H, Total Protein 5.3 L, Albumin 2.0 L, Globulin 3.3, Albumin/Globulin Ratio 0.6 L Current Medications Acetaminophen (Tylenol) 1,000 mg PO Q8H PRN PRN PRN Reason: Pain Score 1-3/10 Bisacodyl (Dulcolax) 10 mg RECTAL UD PRN PRN Reason: If no BM Dibucaine (Dibucaine) 1 applic TOPICAL TID PRN PRN; Protocol PRN Reason: Discomfort Hydrocortisone (Hytone) 1 applic TOPICAL TID PRN PRN; Protocol PRN Reason: Discomfort Naproxen (Naprosyn) 500 mg PO Q8H PRN PRN PRN Reason: Pain Score 1-3/10 Ondansetron HCl (Zofran) 4 mg IV Q4H PRN PRN PRN Reason: Nausea Oxycodone HCl (Oxyir) 5 - 10 mg PO Q4H PRN PRN PRN Reason: Pain Score 4-10/10 Senna/Docusate Sodium (Senokot-S, Heather-Colace) 1 - 2 tablet PO DAILY PRN PRN PRN Reason: Constipation Simethicone (Mylicon) 80 mg PO PCHS PRN PRN Reason: Indigestion/Stomach pain Sodium Chloride () 5 - 15 ml IV UD PRN PRN Reason: SALINE FLUSH Last Admin: 10/17/19 22:20 Dose: 5 ml Documented by: Medical Necessity - Tobacco Use Smoking Status: Never smoker Assessment/Plan All Active Problems (Last Reviewed 10/12/19 @ 11:32 by Dacia Abdalla) Preeclampsia, severe (Acute) GBS (group B Streptococcus carrier), +RV culture, currently (Acute) Hypokalemia (Acute) History of severe pre-eclampsia (Acute) (Acute) Supervision of high risk , antepartum (Acute) Anxiety and depression (Acute) Thyroid disease (Acute) Costochondritis, acute (Resolved) Hypothyroidism (acquired) (Resolved) Marginal placenta previa (Resolved) Pharyngitis (Resolved) Segmental and somatic dysfunction of cervical region (Resolved) Segmental and somatic dysfunction of lumbar region (Resolved) Segmental and somatic dysfunction of thoracic region (Resolved) Uses [facility] pharmacy (Resolved) s/p PPD # 1 1. routine post delivery care 2. breast feeding- support given 3. rh positive 4. rubella immune
[2019-10-18] MEDS: NIFEdipine 30 MG Tablet PO ×2 (15:13→22:08)
[2019-10-18] MEDS: FLUoxetine 20 MG Capsule PO (15:14)
[2019-10-18] MEDS: Levothyroxine 100 MCG Tablet PO (15:14)
--- NOTE | 2019-10-18 20:29 | NURSING ---
RN to recheck in 15min
--- NOTE | 2019-10-18 21:43 | NURSING ---
RN called Dr. Valdez at this time to notify of increased pt BP 184/88 at 2022 with 15min repeat BP 150/86. RN to give 30mg procardia PO now and change daily procardia dose to 60mg PO. RN will continue to monitor pt and notify Dr. Valdez as needed.
[2019-10-19 00:04] VITALS: BP 125/73; PULSE 75; RESP 16; TEMP 37.5
[2019-10-19] MEDS: Levothyroxine 100 MCG Tablet PO (05:01)
[2019-10-19 05:03] VITALS: BP 127/78; PULSE 56; RESP 16; TEMP 37.3
--- NOTE | 2019-10-19 08:15 | DCINST_ITS ---
Additional Instructions: If you experience any of the following, contact your healthcare provider. * Bleeding that soaks a pad every hour for 2 hours * Fever 100.4 or higher * Unrelieved incision or abdominal pain * Swelling, redness, discharge or bleeding from your incision or episiotomy site * Your incision begins to separate * Problems urinating (including inability to urinate or burning while urinating). * Visual changes * Severe headache * Flu-like symptoms * Pain or redness in one of both of your breasts * Pain, warmth, tenderness or swelling in your legs, especially the calf area * Frequent nausea and vomiting * Symptoms of depression or anxiety If you experience any of the following, call 911 or go to the nearest Emergency Room. * Chest pain * Problems breathing * Seizure activity * Partial or complete paralysis of a body part, slurred speech, weakness or drooping of the face, or a sudden inability to walk or hold your balance Allergies/Adverse Reactions: Allergies No Known Allergies Allergy (Verified 10/16/19 19:57) Medications to take at Discharge L.acidoph,Paracasei, B.lactis [Probiotic] 1 ea PO DAILY 05/21/16 levothyroxine 100 mcg tablet 100 mcg PO DAILY #30 tab 12/06/17 aspirin 81 mg tablet,delayed release 81 mg PO DAILY 07/07/19 breast pump See Rx Instructions .ROUTE .MEDSUPPLY #1 ea 09/28/19 Tablet 1 tab PO DAILY 10/16/19 Prozac PRN 10/16/19 NIFEdipine [Procardia Xl] 60 mg PO DAILY #30 tab 10/19/19 The following prescriptions were given: NIFEdipine [Procardia Xl] 60 mg PO DAILY #30 tab Transmission Status: Pending to [facility] Primary Care Physician: Eileen Cabral DO [Primary Care Provider] - Test Results: Test results from this visit will be discussed in further detail at your follow- up appointment, if applicable.
--- NOTE | 2019-10-19 08:15 | PCM.DCVAG ---
Additional Instructions: If you experience any of the following, contact your healthcare provider. Bleeding that soaks a pad every hour for 2 hours Fever 100.4 or higher Unrelieved incision or abdominal pain Swelling, redness, discharge or bleeding from your incision or episiotomy site Your incision begins to separate Problems urinating (including inability to urinate or burning while urinating). Visual changes Severe headache Flu-like symptoms Pain or redness in one of both of your breasts Pain, warmth, tenderness or swelling in your legs, especially the calf area Frequent nausea and vomiting Symptoms of depression or anxiety If you experience any of the following, call 911 or go to the nearest Emergency Room. Chest pain Problems breathing Seizure activity Partial or complete paralysis of a body part, slurred speech, weakness or drooping of the face, or a sudden inability to walk or hold your balance Allergies/Adverse Reactions: Allergies No Known Allergies Allergy (Verified 10/16/19 19:57) Medications to take at Discharge L.acidoph,Paracasei, B.lactis [Probiotic] 1 ea PO DAILY 05/21/16 levothyroxine 100 mcg tablet 100 mcg PO DAILY #30 tab 12/06/17 aspirin 81 mg tablet,delayed release 81 mg PO DAILY 07/07/19 breast pump See Rx Instructions .ROUTE .MEDSUPPLY #1 ea 09/28/19 Tablet 1 tab PO DAILY 10/16/19 Prozac PRN 10/16/19 NIFEdipine [Procardia Xl] 60 mg PO DAILY #30 tab 10/19/19 The following prescriptions were given: NIFEdipine [Procardia Xl] 60 mg PO DAILY #30 tab Transmission Status: Pending to [facility] Primary Care Physician: Eileen Cabral DO [Primary Care Provider] - Test Results: Test results from this visit will be discussed in further detail at your follow-up appointment, if applicable.
[2019-10-19 08:16] VITALS: BP 116/72; PULSE 71; RESP 16; TEMP 37.1
[2019-10-19 08:17] VITALS: BP 116/72; PULSE 71
--- NOTE | 2019-10-19 09:10 | CASEMGMT ---
Social Work Brief Assessment - Labor and Delivery Unit Patient Address: [facility] [address], [place] [address] Phone number: [phone] Date of Referral/Notification: 10/17/2019 Time of Referral: 2250 Referred By: Dr. Valdez Reason for Referral: maternal history of depression and anxiety Date of Intervention: 10.19.2019 Time of Intervention: 09 Informant: Medical record and mother of baby (MOB) Apurva Savage; father of baby (FOB) Shubham Savage present for part of conversation. History: MOB is a 34 year old female, G3, P2 to 3 after delivering baby girl Kathryn on 10-17-2019. care adequate and no identified concerns. FOB is Shubham Savage and the parents now have 3 children together. Minor children include Kathryn, Connor (born 06.22.2012) and Liz (born 12.05.2013). MOB with Pre-eclampsia during this which resulted in need to deliver baby early at 36.6 weeks. 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 FOB works as a grover. MOB with history of depression and anxiety, treated with Prozac for about 4 years. MOB endorses history of depression after 2nd child was born. FOB endorses history of depression himself and is also on medication for such. Assessment: Met with MOB and then later with FOB. MOB holding baby at breast during social work visit. MOB pleasant, smiling, appropriate affect and mood noted. MOB agreeable to meet with social work professor. When FOB joined conversation, FOB engaged in conversation as well. Both talkative and appearing open to acknowledge history of depression, medication being helpful, as well as keeping open illness of communication between the two as helpful to both. MOB and FOB both endorse positive support system from hinduism and MOB's side of the family. MOB voices no concerns about mood at this time, and plans to stay on medication as was such during the . Educated to depression and provided a packet for homegoing, which includes resources if needed. MOB accepting of information provided. Plan: MOB and baby to discharge home today. FOB is off work the remainder of the week to help out and then MOB's mom is available as needed. All needed supplies in place per the parents. Resources for depression provided. No further needs requested or indicated. -LIYA Mann, DISTRICT COURT ADMINISTRATOR
[2019-10-19] MEDS: FLUoxetine 20 MG Capsule PO (09:57)
--- NOTE | 2019-10-25 19:22 | OP.PCM_ITS ---
Problem List (1) Preeclampsia, severe Status: Acute (2) GBS (group B Streptococcus carrier), +RV culture, currently Status: Acute Comment: tx with PCN in labor. (3) Hypokalemia Status: Acute Comment: 40 mEq Kdur daily, saw PCP for this also. (4) History of severe pre-eclampsia Status: Acute Comment: 81 mg asa at 16 weeks, baseline labs. (5) Status: Acute Qualifiers: Weeks of gestation: 36 weeks Qualified Code(s): Z3A.36 - 36 weeks gestation of Comment: carrier, nipt, and ntd screening declined. anatomy reviewed. (6) Supervision of high risk , antepartum Status: Acute Comment: PRR OLIMPIA 11/08/19 surprise Liz Arthur Shubham (7) Anxiety and depression Status: Acute Comment: Prozac. mayer in past, counseling. (8) Thyroid disease Status: Acute Comment: managed by Jonathon Marcum Vaginal Delivery iol preeclampsia with severe features Method of Induction: Pitocin Medical Reason for Induction: Preeclampsia, eclampsia Amniotic Membrane Rupture Type: Artificial Amniotic Fluid Description: Clear Date of Procedure: 10/17/19 Pre-Operative Diagnosis: iol preeclampsia with severe features 36w6d Post-Operative Diagnosis: same Surgery/ Procedure Performed: Spontaneous Vaginal Delivery Type of Anesthesia: None Description of Procedure: Patient began pushing and delivered the head in the TOÑO presentation. The head was delivered atraumatically. The anterior and posterior shoulders delivered without complication followed by the rest of the infant and the infant was placed on the maternal abdomen. Delayed cord clamping was employed for approximately 60 seconds. Cord was clamped and cut and gentle traction was applied to the cord and the placenta delivered spontaneously immediately following it was noted to be intact with three-vessel cord. The perineum and vagina were inspected and noted to have a first-degree perineal laceration that was repaired in the usual fashion with 3-0 Vicryl Rapide. . Patient and infant tolerated delivery well. Presentation: TOÑO Placental Delivery Description: Spontaneous Placenta Disposition: [facility] gender: Female Episiotomy Description: None Laceration: Perineal Extension/lac, 1st degree Medications given after delivery: IV Pitocin Complications: None Multi Select Codes - Urinary/Genital Urinary/Genital CPT Codes: 78340 Vaginal Delivery [facility]
== END 2019-10-19 10:30 | disposition home or self-care (01) | DRG 807 ==
LOC: OBT 08:54 → WP 08:54
PROVIDERS: Admitting Provider Obstetrics & Gynecology; PCP Family Medicine; Referring Provider Obstetrics & Gynecology; Visit Provider Obstetrics & Gynecology
DX: O14.14 Severe pre-eclampsia complicating childbirth (principal); O99.824 Streptococcus B carrier state complicating childbirth; O15.1 Eclampsia complicating labor; O70.0 First degree perineal laceration during delivery; O99.284 Endocrine, nutritional and metabolic diseases complicating childbirth; E87.6 Hypokalemia; E03.9 Hypothyroidism, unspecified; O99.344 Other mental disorders complicating childbirth; F32.9 Major depressive disorder, single episode, unspecified; F41.9 Anxiety disorder, unspecified; Z79.82 Long term (current) use of aspirin; Z79.890 Hormone replacement therapy; Z79.899 Other long term (current) drug therapy; Z3A.36 36 weeks gestation of pregnancy; Z37.0 Single live birth
CPT/HCPCS: 36415; 59025; 59050; 76816; 80053; 82565; 82570; 84112; 84156; 84450; 84460; 84550; 85025; 85027; 85610; 85730; 86850; 86900; 86901; 87635; 99218; G2023; J7120; A4216; G0378; J0290; J0702; U0003

== ENCOUNTER → 2019-11-28 10:46 | Outpatient (CLI) | payer OTHER, SELFPAY ==
[2019-10-24 13:45] VITALS: BMI 26.6
[2019-11-28 12:53] LABS: Free T3 2.5 pg/mL (2.18-3.98); T4 Free Direct 1.13 ng/dL (0.76-1.46); Thyroid Stim Hormone (TSH) 0.36 uIU/mL (0.358-3.74)
== END ==
PROVIDERS: PCP Family Medicine; Referring Provider Family Medicine; Visit Provider Family Medicine
DX: E03.9 Hypothyroidism, unspecified (principal)
CPT/HCPCS: 36415; 84439; 84443; 84481

== ENCOUNTER → 2019-12-01 | Outpatient (CLI) | payer OTHER, SELFPAY ==
[2019-12-01 13:33] VITALS: BMI 26.6
[2019-12-06 16:57] LABS: HPV APTIMA, High Risk Negative (Negative)
== END | disposition home or self-care (01) ==
LOC: LABSPEC 15:07
PROVIDERS: PCP Family Medicine; Referring Provider Obstetrics & Gynecology; Visit Provider Obstetrics & Gynecology
DX: Z12.4 Encounter for screening for malignant neoplasm of cervix (principal)
CPT/HCPCS: 87624; 88175; G0145

== ENCOUNTER 2020-02-06 09:02 | Outpatient (RCR) | payer OTHER, SELFPAY ==
[2019-12-01 13:33] VITALS: BMI 26.6
== END 2020-02-10 23:59 ==
LOC: EMPH 09:02
PROVIDERS: PCP Family Medicine; Visit Provider Family Medicine Geriatric Medicine
DX: Z03.818 Encounter for observation for suspected exposure to other biological agents ruled out (principal)
CPT/HCPCS: 87426

== ENCOUNTER 2020-02-29 11:09 | Outpatient (RCR) | payer OTHER, SELFPAY ==
[2019-12-01 13:33] VITALS: BMI 26.6
== END 2020-03-11 23:59 ==
LOC: EMPH 11:09
PROVIDERS: PCP Family Medicine; Visit Provider Family Medicine Geriatric Medicine
DX: Z03.818 Encounter for observation for suspected exposure to other biological agents ruled out (principal)
CPT/HCPCS: 87426

== ENCOUNTER 2020-04-03 14:03 | Outpatient (RCR) | payer OTHER, SELFPAY ==
[2019-12-01 13:33] VITALS: BMI 26.6
== END 2020-04-11 23:59 ==
LOC: EMPH 14:03
PROVIDERS: PCP Family Medicine; Visit Provider Family Medicine Geriatric Medicine
DX: Z03.818 Encounter for observation for suspected exposure to other biological agents ruled out (principal)
CPT/HCPCS: 87426

== ENCOUNTER → 2020-06-07 14:38 | Outpatient (CLI) | payer OTHER, SELFPAY ==
[2019-12-01 13:33] VITALS: BMI 26.6
[2020-06-07 17:57] LABS: Free T3 2.1 pg/mL (2.18-3.98); T4 Free Direct 1.11 ng/dL (0.76-1.46); Thyroid Stim Hormone (TSH) 0.63 uIU/mL (0.358-3.74)
== END ==
PROVIDERS: PCP Family Medicine; Referring Provider Family Medicine; Visit Provider Family Medicine
DX: E03.9 Hypothyroidism, unspecified (principal)
CPT/HCPCS: 36415; 84439; 84443; 84481

== ENCOUNTER → 2020-12-05 12:35 | Outpatient (CLI) | payer OTHER, SELFPAY ==
[2020-12-05 14:08] LABS: Free T3 2.8 pg/mL (2.18-3.98); T4 Free Direct 1.27 ng/dL (0.76-1.46); Thyroid Stim Hormone (TSH) 0.43 uIU/mL (0.358-3.74)
== END ==
PROVIDERS: PCP Family Medicine; Visit Provider Family Medicine
DX: E03.9 Hypothyroidism, unspecified (principal)
CPT/HCPCS: 36415; 84439; 84443; 84481

== ENCOUNTER 2021-01-06 12:26 | Outpatient (RCR) | payer OTHER, SELFPAY ==
[2019-12-01 13:33] VITALS: BMI 26.6
== END 2021-01-09 23:59 ==
LOC: EMPH 12:26
PROVIDERS: PCP Family Medicine; Referring Provider Family Medicine Geriatric Medicine; Visit Provider Family Medicine Geriatric Medicine
DX: Z03.818 Encounter for observation for suspected exposure to other biological agents ruled out (principal)
CPT/HCPCS: 87426

== ENCOUNTER 2021-01-16 06:34 | Outpatient (RCR) | payer OTHER, SELFPAY ==
[2021-01-10 00:05] VITALS: BMI 26.6
== END 2021-02-09 23:59 ==
LOC: EMPH 06:34
PROVIDERS: PCP Family Medicine; Referring Provider Family Medicine Geriatric Medicine; Visit Provider Family Medicine Geriatric Medicine
DX: Z03.818 Encounter for observation for suspected exposure to other biological agents ruled out (principal)
CPT/HCPCS: 87426

== ENCOUNTER 2021-03-08 09:58 | Outpatient (RCR) | payer OTHER, SELFPAY ==
[2021-02-10 00:06] VITALS: BMI 26.6
== END 2021-03-11 23:59 ==
LOC: EMPH 09:58
PROVIDERS: PCP Family Medicine; Referring Provider Family Medicine Geriatric Medicine; Visit Provider Family Medicine Geriatric Medicine
DX: Z03.818 Encounter for observation for suspected exposure to other biological agents ruled out (principal)
CPT/HCPCS: 87426

== ENCOUNTER 2021-04-07 19:03 | Outpatient (RCR) | payer OTHER, SELFPAY ==
[2021-03-12 00:13] VITALS: BMI 26.6
== END 2021-04-11 23:59 ==
LOC: EMPH 19:03
PROVIDERS: PCP Family Medicine; Referring Provider Family Medicine Geriatric Medicine; Visit Provider Family Medicine Geriatric Medicine
DX: Z03.818 Encounter for observation for suspected exposure to other biological agents ruled out (principal)
CPT/HCPCS: 87426

== ENCOUNTER 2021-04-13 15:47 | Emergency (ER) | payer OTHER, SELFPAY ==
[2021-04-13 15:49] VITALS: BP 132/101; PULSE 110; RESP 24; TEMP 36.5; O2SAT 100; BMI 23.8
--- NOTE | 2021-04-13 15:52 | EKG12_ITS ---
Test Reason : CP Blood Pressure : / mmHG Vent. Rate : 102 BPM Atrial Rate : 102 BPM P-R Int : 160 ms QRS Dur : 076 ms QT Int : 324 ms P-R-T Axes : 067 074 037 degrees QTc Int : 422 ms Sinus tachycardia Nonspecific T wave abnormality Abnormal ECG Confirmed by RUCHI BONDS, HEMA ([id number]), society editor SOLIS KYLE ([id number]) on 04/16/2021 10:40:11 AM Referred By: LAYA Confirmed By:HEMA HOPPER MD
[2021-04-13 16:05] LABS: Absolute Lymphocyte Count 1.32 X10^3/uL (0.83-4.51); Absolute Neutrophil Count 2.2 X10^3/uL (2.0-7.7); Basophil# 0.01 X10^3/uL; Basophil% 0.2 % (0-1); Eosinophil# 0.03 X10^3/uL; Eosinophils% 0.7 % (0-5); Hematocrit 40.7 % (37-47); Hemoglobin 13.5 g/dL (12.0-15.0); Lymphocyte # 1.32 X10^3/ul (0.83-4.51); Lymphocyte % 31.8 % (19-41); Mean Corp Hgb Conc 33.2 g/dL (32-36); Mean Corpuscular Hgb 28.6 pg (27.0-32.0); Mean Corpuscular Volume 86.2 fL (81-99); Mean Platelet Vol. 10.6 fl (6.2-12.0); Monocyte% 14.5 % (0-10); NRBC Flagged by Analyzer 0 % (0-5); Neutrophil # 2.18 X10^3/uL (2.7-7.7); Neutrophil % 52.6 % (47-70); Platelet Count 270 K/mm3 (150-450); RBC Distribution Width CV 11.8 % (11.6-14.6); RBC Distribution Width SD 37.4 fl (35.1-43.9); Red Blood Count 4.72 M/mm3 (4.2-5.4); White Blood Count 4.2 K/mm3 (4.4-11.0)
--- NOTE | 2021-04-13 16:10 | RAD_ITS ---
HISTORY: chest pain EXAMINATION/TECHNIQUE: XR Chest 1 View: 1 view COMPARISON: May 21, 2016 FINDINGS: LINES/DEVICES: None. LUNGS: No consolidation, edema or effusion. No pneumothorax. MEDIASTINUM AND CARDIOVASCULAR STRUCTURES: Cardiac silhouette not enlarged. Central airways and mediastinal contour are unremarkable. BONES AND SOFT TISSUES: No acute bony abnormalities. RAD/Chest 1 View (Portable) IMPRESSION: No radiographic evidence of acute cardiopulmonary disease. at 1650 Reported and signed by: Kash Malik MD Electronically Signed: Kash Malik MD at 16:49 EST Tel , Service support ,
[2021-04-13 16:30] LABS: Anion Gap 6 (5-15); BUN 18 mg/dL (7-18); BUN/Creat Ratio 18.8 RATIO (10-20); Calcium,Total 8.9 mg/dL (8.5-10.1); Chloride 107 mmol/L (98-107); Creatinine, Serum 0.96 mg/dL (0.55-1.02); EST Glomerular Filtration Rate 71 mL/min (>60); Est Glom Filt Rate - Afr Amer 86 mL/min (>60); Estimated Creatinine Clearance 65.92 ml/min; Glucose 105 mg/dL (74-106); Sodium Level 139 mmol/L (136-145); Troponin-I HS < 3 pg/mL (3.0-54.0)
[2021-04-13 19:43] LABS: D-Dimer Quantitative (DVT/PE) 0.61 FEU/ug/m (0.27-0.49)
--- NOTE | 2021-04-13 19:46 | CT_ITS ---
HISTORY: Chest pain, elevated d-dimer EXAMINATION: CTA Chest WO/W Contrast Injection TECHNIQUE: Helically acquired images were obtained of the chest following IV contrast as per pulmonary angiogram protocol with 3D reconstructions. A radiation dose optimization technique was used for this scan. IV Contrast dosage and agent: 75mL Isovue-370 COMPARISON: None FINDINGS: LUNGS, PLEURA AND LARGE AIRWAYS: No masses, consolidation, or edema. No pleural effusion or thickening. No pneumothorax. THYROID: No thyroid lesions. PULMONARY ARTERIES: Normal in caliber. No pulmonary embolism. AORTA AND GREAT VESSELS: No aneurysm or dissection. HEART AND PERICARDIUM: Heart size is normal. No pericardial effusion. MEDIASTINUM AND BRENNON: No mediastinal or hilar adenopathy. Esophagus is unremarkable. No hiatal hernia. UPPER ABDOMEN: No acute pathology. BONES: Unremarkable. CT/CTA Chest W/WO Contrast IMPRESSION: Negative CTA Chest. No acute pulmonary findings. Individualized dose optimization techniques were used for this CT. at 2149 Reported and signed by: Kash Malik MD Electronically Signed: Kash Malik MD at 21:48 EST Tel , Service support ,
--- NOTE | 2021-04-13 20:04 | EX.ED.DYSGE1 ---
HPI History of Present Illness Chief Complaint: Chest Pain Informant: patient Narrative Narrative: Patient has known Covid. She got tested last night through [facility]. She has had some cough but not really dyspneic. She does have some mild chest pain on the left. She notices palpitations and her heart is racing faster than it normally would. Not having nausea vomiting diarrhea. No notable fevers. She does have a history of thyroid disease but last had this checked approximately November. No history of DVT or PE. No hemoptysis. [facility] Medical History (Updated 04/13/21 @ 23:[address] Eddi De La Rosa MD) Anxiety and depression H/O cardiac murmur Headache, migraine Seasonal allergies Thyroid disease Home Medications L.acidoph, paracasei,B. lactis 1 ea PO DAILY 05/21/16 [History Last Taken 10/15/19 21:00] levothyroxine 100 mcg tablet 100 mcg PO DAILY #30 tab 12/06/17 [Rx Last Taken 10/15/19 21:00] breast pump #1 ea 09/28/19 [Rx Last Taken Unknown] Tablet 1 tab PO DAILY 10/16/19 [History Last Taken 10/15/19 21:00] fluoxetine 40 mg capsule 40 mg PO DAILY 12/01/19 [History Last Taken Unknown] Allergy/AdvReac Type Severity Reaction Status Date / Time No Known Allergies Allergy Verified 04/13/21 15:53 Family History Mother Hypertension Grandfather Hypertension Heart disease Skin cancer Grandmother CVA (cerebral vascular accident) Hypothyroid Father Seizures CVA (cerebral vascular accident) Aunt Breast cancer Heart disease Social History Smoking Status: Never smoker second hand exposure: No alcohol intake: never substance use type: does not use caffeine: Yes frequency: 1-2 times per week seatbelt use: always do you feel safe at home: Yes additional social history: Jayden Sorto 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 Respiratory ROS ROS ED Constitutional Constitutional ED: Denies fever(s) ENT ENT ED: Reports rhinorrhea; Denies sore throat Cardiovascular Cardiovascular: Reports chest pain and palpitations Respiratory/Chest Respiratory/Chest: Reports cough; Denies dyspnea or sputum Gastrointestinal Gastrointestinal: Denies diarrhea, nausea or vomiting Genitourinary Genitourinary ED: Denies dysuria Musculoskeletal Musculoskeletal: Denies myalgias Integumentary Denies rash Neurologic Neurologic: Denies headache(s) Endocrine Endocrinology: Denies polydipsia or polyuria Allergic/Immunologic Allergic/Immunologic ED: Denies urticaria EXAM Physical Exam Const Vital Signs: 04/13/21 15:49 04/13/21 20:15 04/13/21 20:17 Temperature 97.7 F L Temperature Source Temporal Pulse Rate 110 H 102 H Respiratory Rate 24 H 18 Respiratory Effort Normal Non-Labored Blood Pressure 132/101 H 130/87 H Blood Pressure Mean 111 101 Pulse Ox 100 100 Oxygen Delivery Method Room Air Room Air Positive well nourished and well developed General Appearance ED: well developed and NAD; Negative for cyanotic or diaphoretic HEENT Negative for trauma Eyes General Eye ED: Negative for pale conjunctiva or scleral icterus Neck no JVD Chest Wall inspection of chest normal Resp normal respiratory effort and clear to auscultation bilaterally Resp Narrative: Lungs actually sound quite clear. Her saturations are normal Effort and Inspection: Negative for pain with movement Auscultation: Negative for rales, rhonchi or wheezes Cardio regular rhythm and no murmurs Rate: tachycardic GI normal to inspection, nondistended, normoactive bowel sounds and non-tender Palpation: soft Extremity normal to inspection General Extremety ED: Negative for edema General Extremity: Negative for edema Neuro Sensorium / Orientation: alert Psych mental status grossly normal Skin no rashes or lesions noted MDM MDM MDM Narrative Medical decision making narrative: 8 labs shows low white count consistent with Covid. PT/INR is normal. Electrolytes are unremarkable. Troponin is negative. D-dimer is elevated. With her palpitations, dyspnea, Covid and elevated D-dimer we did do a CTA of the chest. This showed no acute process. There is no PE. Her tachycardia may be from combination of dehydration, inflammatory response, fever, dyspnea etc. She is okay for discharge. We discussed reasons to return. Lab Data Attestation: I reviewed the patient's lab results. Labs: Laboratory Results - last 24 hr 04/13/21 04/13/21 04/13/21 15:55 15:55 15:55 WBC 4.2 L RBC 4.72 Hgb 13.5 Hct 40.7 MCV 86.2 MCH 28.6 MCHC 33.2 RDW Std Deviation 37.4 RDW Coeff of Jaime 11.8 Plt Count 270 MPV 10.6 Immature Gran % (Auto) 0.200 Neut % (Auto) 52.6 Lymph % (Auto) 31.8 Potter % (Auto) 14.5 H Eos % (Auto) 0.7 Baso % (Auto) 0.2 Absolute Neuts (auto) 2.2 Absolute Lymphs (auto) 1.32 Nucleated RBC % 0 PT 13.0 INR 1.0 D-Dimer Quant (PE/DVT) Sodium 139 Potassium 4.0 Chloride 107 Carbon Dioxide 26.0 Anion Gap 6 BUN 18 Creatinine 0.96 Estim Creat Clear Calc 65.92 Est GFR (MDRD) Af Amer 86 Est GFR (MDRD) Non-Af 71 BUN/Creatinine Ratio 18.8 Glucose 105 Calcium 8.9 Troponin I High Sens < 3 L 04/13/21 15:55 WBC RBC Hgb Hct MCV MCH MCHC RDW Std Deviation RDW Coeff of Jaime Plt Count MPV Immature Gran % (Auto) Neut % (Auto) Lymph % (Auto) Potter % (Auto) Eos % (Auto) Baso % (Auto) Absolute Neuts (auto) Absolute Lymphs (auto) Nucleated RBC % PT INR D-Dimer Quant (PE/DVT) 0.61 H* Sodium Potassium Chloride Carbon Dioxide Anion Gap BUN Creatinine Estim Creat Clear Calc Est GFR (MDRD) Af Amer Est GFR (MDRD) Non-Af BUN/Creatinine Ratio Glucose Calcium Troponin I High Sens Radiography Diagnostic Testing: Clinical Impression(s) from Imaging Studies Chest X-Ray 04/13/21 16:10 IMPRESSION: No radiographic evidence of acute cardiopulmonary disease. at 1650 Reported and signed by: Kash Malik MD Electronically Signed: Kash Malik MD at 16:49 EST Tel , Service support , Chest CTA 04/13/21 19:46 IMPRESSION: Negative CTA Chest. No acute pulmonary findings. Individualized dose optimization techniques were used for this CT. at 2149 Reported and signed by: Kash Malik MD Electronically Signed: Kash Malik MD at 21:48 EST Tel , Service support , Discharge Plan Triage Chief Complaint: Chest Pain ED Provider: Eddi De La Rosa Dx/Rx/DC Orders Clinical Impression: Heart palpitations, COVID Instructions: Coronavirus Disease 2019 (COVID-19): Caring for Yourself or Others Prescriptions: No Action levothyroxine 100 mcg tablet 100 mcg PO DAILY Qty: 30 RF: 11 (DME) breast pump Device See Rx Instructions .ROUTE .MEDSUPPLY Qty: 1 RF: 0 fluoxetine [Prozac] 40 mg capsule 40 mg PO DAILY RF: 0 L.acidoph, paracasei,B. lactis 1 EACH capsule 1 ea PO DAILY RF: 0 Tablet 1 tab PO DAILY RF: 0 Primary Care Provider: Eileen Cabral Referrals: Eileen Cabral DO [Primary Care Provider] - 3-5 Days if not improving Disposition Disposition: Home, Self Care
[2021-04-13 20:15] VITALS: BP 130/87; PULSE 102; RESP 18; O2SAT 100
[2021-04-13 23:34] VITALS: BP 128/90; PULSE 111; RESP 20; O2SAT 95
== END 2021-04-13 23:35 | disposition home or self-care (01) ==
PROVIDERS: Emergency Provider Emergency Medicine; PCP Family Medicine; Visit Provider Emergency Medicine
DX: U07.1 COVID-19 (principal); R00.2 Palpitations; E07.9 Disorder of thyroid, unspecified; F32.A Depression, unspecified; F41.9 Anxiety disorder, unspecified; Z79.890 Hormone replacement therapy; Z79.899 Other long term (current) drug therapy
CPT/HCPCS: 71045; 71275; 80048; 84484; 85025; 85379; 85610; 93005; 99284; Q9967; A4216

== ENCOUNTER 2021-05-21 16:31 | Outpatient (CLI) | payer OTHER, SELFPAY ==
[2021-05-21 18:18] LABS: Absolute Lymphocyte Count 1.97 X10^3/uL (0.83-4.51); Absolute Neutrophil Count 4.3 X10^3/uL (2.0-7.7); Basophil# 0.04 X10^3/uL; Basophil% 0.6 % (0-1); Eosinophil# 0.16 X10^3/uL; Eosinophils% 2.3 % (0-5); Hematocrit 37.6 % (37-47); Hemoglobin 12.8 g/dL (12.0-15.0); Lymphocyte # 1.97 X10^3/ul (0.83-4.51); Lymphocyte % 28.3 % (19-41); Mean Corpuscular Volume 88.1 fL (81-99); Mean Platelet Vol. 11.3 fl (6.2-12.0); Monocyte# 0.45 X10^3/uL; Monocyte% 6.5 % (0-10); NRBC Flagged by Analyzer 0 % (0-5); Neutrophil # 4.32 X10^3/uL (2.7-7.7); Platelet Count 393 K/mm3 (150-450); RBC Distribution Width CV 12.2 % (11.6-14.6); Red Blood Count 4.27 M/mm3 (4.2-5.4)
[2021-05-21 18:31] LABS: D-Dimer Quantitative (DVT/PE) 0.28 FEU/ug/m (0.27-0.49)
[2021-05-21 18:54] LABS: Free T3 2.3 pg/mL (2.18-3.98); T4 Free Direct 1.18 ng/dL (0.76-1.46); Thyroid Stim Hormone (TSH) 1.09 uIU/mL (0.358-3.74)
== END 2021-05-21 23:59 | disposition home or self-care (01) ==
LOC: MTLAB 16:34
PROVIDERS: PCP Family Medicine; Referring Provider Family Medicine; Visit Provider Family Medicine
DX: E03.9 Hypothyroidism, unspecified (principal); R79.89 Other specified abnormal findings of blood chemistry; Z51.81 Encounter for therapeutic drug level monitoring; Z78.9 Other specified health status
CPT/HCPCS: 36415; 84439; 84443; 84481; 85025; 85379; 86769

== ENCOUNTER → 2021-12-08 | Outpatient (CLI) | payer OTHER, SELFPAY ==
[2021-12-08 18:26] LABS: Free T3 2.2 pg/mL (2.18-3.98); T4 Free Direct 1.07 ng/dL (0.76-1.46); Thyroid Stim Hormone (TSH) 2.09 uIU/mL (0.358-3.74)
[2021-12-08 18:36] LABS: Hemoglobin A1c 5.3 % (3.8-5.6)
== END | disposition home or self-care (01) ==
LOC: MTLAB 16:47
PROVIDERS: PCP Family Medicine; Referring Provider Family Medicine; Visit Provider Family Medicine
DX: E03.9 Hypothyroidism, unspecified (principal); R73.01 Impaired fasting glucose
CPT/HCPCS: 36415; 83036; 84439; 84443; 84481

== ENCOUNTER → 2022-09-21 | Outpatient (CLI) | payer OTHER, SELFPAY ==
[2022-09-21 07:49] LABS: Free T3 2.2 pg/mL (2.18-3.98); T4 Free Direct 1.31 ng/dL (0.76-1.46); Thyroid Stim Hormone (TSH) 3.31 uIU/mL (0.358-3.74)
== END | disposition home or self-care (01) ==
LOC: LAB 06:13
PROVIDERS: PCP Family Medicine; Referring Provider Family Medicine; Visit Provider Family Medicine
DX: E03.9 Hypothyroidism, unspecified (principal)
CPT/HCPCS: 36415; 84439; 84443; 84481

== ENCOUNTER → 2022-10-14 | Outpatient (CLI) | payer OTHER, SELFPAY ==
[2022-10-18 11:07] LABS: Age Gdln ACOG Testing 30-65 (.); HPV APTIMA, High Risk Negative (Negative)
[2022-10-19 21:19] LABS: HPV Reflexed? YES, CHARGE PATIENT
== END | disposition home or self-care (01) ==
LOC: LABSPEC 13:50
PROVIDERS: PCP Family Medicine; Referring Provider Family Medicine; Visit Provider Family Medicine
DX: Z12.4 Encounter for screening for malignant neoplasm of cervix (principal)
CPT/HCPCS: 87624; 88175; G0145

== ENCOUNTER → 2023-02-18 | Outpatient (CLI) | payer OTHER, SELFPAY ==
[2023-02-18 18:14] LABS: Free T3 2.4 pg/mL (2.18-3.98); T4 Free Direct 1.43 ng/dL (0.76-1.46); Thyroid Stim Hormone (TSH) 0.87 uIU/mL (0.358-3.74)
== END | disposition home or self-care (01) ==
LOC: BFHLAB 14:28
PROVIDERS: PCP Family Medicine; Visit Provider Family Medicine
DX: E03.9 Hypothyroidism, unspecified (principal)
CPT/HCPCS: 36415; 84439; 84443; 84481

== ENCOUNTER → 2023-05-04 | Outpatient (CLI) | payer OTHER, SELFPAY ==
[2023-05-04 18:17] LABS: Progesterone Level 0.44 ng/mL (See Comment)
[2023-05-04 18:19] LABS: Estradiol 36.7 pg/mL; Follicle Stimulating Hormone 10.6 mIU/mL; Free T3 2.3 pg/mL (2.18-3.98); T4 Free Direct 1.33 ng/dL (0.76-1.46); Thyroid Stim Hormone (TSH) 1.57 uIU/mL (0.358-3.74)
== END | disposition home or self-care (01) ==
LOC: MTLAB 15:43
PROVIDERS: PCP Family Medicine; Referring Provider Family Medicine; Visit Provider Family Medicine
DX: E03.9 Hypothyroidism, unspecified (principal); N93.8 Other specified abnormal uterine and vaginal bleeding
CPT/HCPCS: 36415; 82670; 83001; 84144; 84439; 84443; 84481

== ENCOUNTER → 2023-10-25 | Outpatient (CLI) | payer OTHER, SELFPAY ==
[2023-10-25 15:16] LABS: Absolute Lymphocyte Count 2.02 X10^3/uL (0.83-4.51); Absolute Neutrophil Count 3.8 X10^3/uL (2.0-7.7); Basophil# 0.02 X10^3/uL; Basophil% 0.3 % (0-1); Eosinophil# 0.15 X10^3/uL; Eosinophils% 2.4 % (0-5); Hematocrit 39.8 % (37-47); Hemoglobin 13.2 g/dL (12.0-15.0); Lymphocyte # 2.02 X10^3/ul (0.83-4.51); Lymphocyte % 31.7 % (19-41); Mean Corp Hgb Conc 33.2 g/dL (32-36); Mean Corpuscular Hgb 28.9 pg (27.0-32.0); Mean Corpuscular Volume 87.1 fL (81-99); Mean Platelet Vol. 11.7 fl (6.2-12.0); Monocyte# 0.43 X10^3/uL; Monocyte% 6.7 % (0-10); NRBC Flagged by Analyzer 0 % (0-5); Neutrophil # 3.75 X10^3/uL (2.7-7.7); Neutrophil % 58.7 % (47-70); Platelet Count 335 K/mm3 (150-450); RBC Distribution Width CV 11.8 % (11.6-14.6); RBC Distribution Width SD 37.6 fl (35.1-43.9); Red Blood Count 4.57 M/mm3 (4.2-5.4); White Blood Count 6.4 K/mm3 (4.4-11.0)
[2023-10-25 15:21] LABS: Color, Urine Yellow (Yellow); Glucose, Dipstick Normal (Normal); Ketone-Dipstick Negative (Negative); Leukocyte Esterase-Dipstick Negative /ul (Negative); Nitrite-Dipstick Negative (Negative); Occult Blood-Urine Negative /ul (Negative); Protein-Dipstick Negative (Negative); Urine Bilirubin Dipstick Negative (Negative); Urine Clarity Clear (Clear); Urine Urobilinogen Normal (Normal)
[2023-10-25 20:19] LABS: AST(SGOT) 15 U/L (15-37); Alanine Aminotransfer ALT/SGPT 17 U/L (13-56); Albumin, Serum 3.9 g/dL (3.2-5.0); Alkaline Phosphatase 64 U/L (45-117); Anion Gap 9 (5-15); BUN 11 mg/dL (7-18); Bilirubin, Direct 0.15 mg/dL (0.00-0.30); Chloride 105 mmol/L (98-107); Cholesterol 153 mg/dL (200); EST Glomerular Filtration Rate 67 mL/min (>60); Est Glom Filt Rate - Afr Amer 81 mL/min (>60); Globulin 3.8 g/dL (2.2-4.2); Glucose 98 mg/dL (74-106); High Density Lipoprotein 59 mg/dL; LDH 219 U/L (84-246); Phosphorus 3.3 mg/dL (2.5-4.9); Potassium 3.8 mmol/L (3.5-5.1); Protein, Total 7.7 g/dL (6.4-8.2); Sodium Level 137 mmol/L (136-145); T4 Total, Thyroxin 9.1 ug/dL (4.8-13.9); Thyroid Stim Hormone (TSH) 1.58 uIU/mL (0.358-3.74); Triglycerides 98 mg/dL; Uric Acid 3.2 mg/dL (2.6-6.0); Very Low Density Lipoprotein 20 mg/dL (5-40)
== END | disposition home or self-care (01) ==
PROVIDERS: PCP Family Medicine; Referring Provider Family Medicine; Visit Provider Family Medicine
DX: E03.9 Hypothyroidism, unspecified (principal)
CPT/HCPCS: 80048; 80061; 80076; 81002; 83615; 84100; 84436; 84443; 84480; 84550; 85025

== ENCOUNTER → 2023-11-12 | Outpatient (CLI) | payer OTHER, SELFPAY ==
--- NOTE | 2023-11-12 10:46 | ECHOD_ITS ---
Reason For Study: CHEST PAIN Procedure This was a 2D Doppler, Color Flow transthoracic echocardiogram. Exam performed in department. Left Ventricle Normal LV size. Left ventricular systolic function is normal. The left ventricular ejection fraction is 65 %. Normal diastology for age. No regional wall motion abnormalities noted. Right Ventricle Normal RV size. Normal systolic function. Atria Normal left atrium. Normal right atrium. Mitral Valve Normal mitral valve. Tricuspid Valve Normal tricuspid valve. Mild tricuspid valve insufficiency. Pulmonary artery systolic pressure is 30 mmHg. Aortic Valve Trisinus/trileaflet aortic valve. Great Vessels Normal aortic root. The pulmonary artery is normal size. Normal inferior vena cava. Pericardium/Pleural No pericardial effusion. MMode/2D Measurements & Calculations LVIDd: 4.0 cm IVSd: 0.76 cm Ao root diam: 2.6 cm LVIDs: 2.7 cm LVPWd: 0.81 cm RVDd: 2.6 cm FS: 30.7 % LAV(MOD-bp): 32.6 ml LVAd ap4: 21.0 cm2 LVAd ap2: 21.0 cm2 LAV(MOD-bp) Indexed: 20.8 ml/m2 LVLd ap4: 6.7 cm LVLd ap2: 6.9 cm LAV(MOD-sp2): 36.0 ml EDV(MOD-sp4): 55.7 ml EDV(MOD-sp2): 51.6 ml LAV(MOD-sp4): 25.0 ml EDV(sp4-el): 55.7 ml EDV(sp2-el): 53.7 ml LVAs ap4: 10.9 cm2 LVAs ap2: 10.8 cm2 LVLs ap4: 5.1 cm LVLs ap2: 5.7 cm ESV(MOD-sp4): 20.0 ml ESV(MOD-sp2): 18.5 ml ESV(sp4-el): 19.7 ml ESV(sp2-el): 17.5 ml EF(MOD-sp4): 64.1 % EF(MOD-sp2): 64.2 % EF(sp4-el): 64.7 % SV(MOD-sp4): 35.7 ml SV(MOD-sp2): 33.1 ml SV(sp4-el): 36.1 ml LA dimension(2D): 3.1 cm LA A4 area: 11.1 cm2 RA A4 area: 10.7 cm2 TAPSE: 2.0 cm Time Measurements MV dec time: 0.15 sec Doppler Measurements & Calculations MV E max yann: 78.7 cm/sec Lat Peak E' Yann: 19.3 cm/sec Med Peak E' Yann: 13.3 cm/sec MV A max yann: 62.7 cm/sec E/E' lat: 4.1 E/E' med: 5.9 MV E/A: 1.3 MV V2 max: 113.5 cm/sec MV P1/2t max yann: 103.3 cm/sec Ao V2 max: 130.7 cm/sec MV max P.2 mmHg MV P1/2t: 48.8 msec Ao max P.8 mmHg MV V2 mean: 62.3 cm/sec MV dec slope: 619.7 cm/sec2 Ao V2 mean: 90.5 cm/sec MV mean P.8 mmHg Ao mean P.6 mmHg MV V2 VTI: 23.3 cm MVA(P1/2t): 4.5 cm2 Ao V2 VTI: 24.5 cm AV (velocity ratio): 0.90 LV V1 max: 112.9 cm/sec PA V2 max: 101.8 cm/sec TR max yann: 260.2 cm/sec LV V1 max P.1 mmHg PA V2 mean: 76.0 cm/sec TR max P.1 mmHg LV V1 mean P.6 mmHg LV V1 mean: 75.8 cm/sec LV V1 VTI: 22.1 cm ECHO/Echo Complete Interpretation Summary Normal LV size. Left ventricular systolic function is normal. The left ventricular ejection fraction is 65 %. Pulmonary artery systolic pressure is 30 mmHg. Ordering Physician: Eileen Cabral Referring Physician: Eileen Cabral Performed By: Erika Neumann, RDCS, RVT
== END | disposition home or self-care (01) ==
LOC: CVS 10:45
PROVIDERS: PCP Family Medicine; Referring Provider Family Medicine; Visit Provider Family Medicine
DX: R07.9 Chest pain, unspecified (principal); I10 Essential (primary) hypertension
CPT/HCPCS: 93306

== ENCOUNTER 2023-11-14 19:47 | Emergency (ER) | payer OTHER, SELFPAY ==
[2023-11-14] VITALS (9 sets, daily range): BP systolic 117–147; BP diastolic 79–95; PULSE 81–123; RESP 12–23; TEMP 35.9–36.7; O2SAT 97–100; BMI 23.1
--- NOTE | 2023-11-14 19:50 | EKG12_ITS ---
Test Reason : ST Blood Pressure : / mmHG Vent. Rate : 123 BPM Atrial Rate : 123 BPM P-R Int : 154 ms QRS Dur : 078 ms QT Int : 300 ms P-R-T Axes : 066 076 024 degrees QTc Int : 429 ms Sinus tachycardia Possible Left atrial enlargement ST & T wave abnormality, consider inferior ischemia ST & T wave abnormality, consider anterolateral ischemia Abnormal ECG Confirmed by Hector Farmer ([id number]), food expeditor SOLIS KYLE ([id number]) on 11/17/2023 9:07:28 AM Referred By: GAMA Confirmed By:Hector Farmer
--- NOTE | 2023-11-14 19:55 | ED.VIS.CHEST ---
HPI History of Present Illness Chief Complaint: Chest Pain [facility] Medical History (Updated 11/14/23 @ 22:[address] Andry Black, ) Chronic allergic otitis media, unspecified ear Thyroid disease H/O cardiac murmur Headache, migraine Anxiety and depression Seasonal allergies Home Medications ?Medication ?Instructions ?Recorded ?Last Taken ?Type levothyroxine 112 mcg tablet 112 mcg PO DAILY 11/14/23 Unknown History ondansetron 4 mg disintegrating 4 mg PO Q8H PRN PRN Nausea #10 tabs 11/14/23 Unknown Rx tablet Allergy/AdvReac Type Severity Reaction Status Date / Time No Known Allergies Allergy Verified 11/14/23 19:49 Family History Mother Hypertension Grandfather Hypertension Heart disease Skin cancer Grandmother CVA (cerebral vascular accident) Hypothyroid Father Seizures CVA (cerebral vascular accident) Aunt Breast cancer Heart disease Social History Smoking Status: Never smoker second hand exposure: No alcohol intake: never substance use type: does not use caffeine: Yes frequency: 1-2 times per week seatbelt use: always do you feel safe at home: Yes additional social history: [id number] 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 Exam Const Vital Signs: 11/14/23 19:49 11/14/23 20:15 11/14/23 20:44 Temperature 96.7 F L 98.1 F Temperature Source Temporal Oral Pulse Rate 123 H 90 Respiratory Rate 14 16 Respiratory Effort Normal Blood Pressure 147/95 H 135/90 H Blood Pressure Mean 112 105 Pulse Ox 100 100 Oxygen Delivery Method Room Air Room Air 11/14/23 21:00 11/14/23 21:21 11/14/23 21:30 Temperature Temperature Source Pulse Rate 105 H 94 Respiratory Rate 12 19 H Respiratory Effort Blood Pressure 117/85 H 121/83 H Blood Pressure Mean 95 94 Pulse Ox 100 100 Oxygen Delivery Method Room Air 11/14/23 21:45 11/14/23 22:00 11/14/23 22:20 Temperature Temperature Source Pulse Rate 99 95 107 H Respiratory Rate 15 16 23 H Respiratory Effort Blood Pressure 120/86 H 117/79 Blood Pressure Mean 96 91 Pulse Ox 100 100 97 Oxygen Delivery Method 11/14/23 23:09 Temperature 98.1 F Temperature Source Pulse Rate 81 Respiratory Rate 16 Respiratory Effort Blood Pressure 117/79 Blood Pressure Mean 91 Pulse Ox [address] [facility] Narrative Medical decision making narrative: HISTORY OF PRESENT ILLNESS: 38-year-old female presents with chest tightness. Notes family history of blood clots. The patient denies recent surgery in the last 4 weeks or immobilization in the last 3 days, denies previous diagnosis of DVT or PE, hemoptysis, unilateral leg swelling or malignancy with treatment the last 6 months or palliative. No estrogen use noted. Denies any cough fever or chills. Denies any leg swelling. Denies orthopnea. Nausea vomiting or diarrhea. Patient denies sudden onset of pain, no tearing sensation, no migratory symptoms, no new numbness, weakness or loss of sensation. Patient denies family history or personal history of Connective tissue disorders (Marfan's Syndrome, Manuel Danlos etc) REVIEW OF SYSTEMS: Pertinent positives: Chest pain, chest tightness, shortness of breath Pertinent negatives: Fever, cough, leg swelling, bleeding diathesis, volume loss PHYSICAL EXAM: Nursing triage notes reviewed, Vital signs reviewed Constitutional: please see mdm HENT: MMM Eyes: Pupils equal round and reactive to light, Extraocular muscles intact Neck: No stridor, no JVD, full neck ROM Lungs: Clear to auscultation, No wheezing or rales. No increased work of breathing, no conversational dyspnea, no accessory muscle use, no nasal flaring. No respiratory distress noted Heart: Fast rate and regular rhythm, No murmurs, No rubs and No gallops, 2+ distal pulses (radial, femoral, posterior tibial) in all extremities Abdomen: Soft, there is no tenderness, rigidity, rebound or guarding, no obvious peritoneal signs, no palpable pulsatile abdominal masses, no auscultated abdominal bruit : No CVAT Extremities: No edema Neuro: Alert, oriented, no obvious focal neurological deficits, cranial nerves II through XII appear to be intact, moves all 4 extremities all extremities. Intact sensation to light touch in all extremities, Skin: No rash or lesions noted MEDICAL DECISION MAKING: Chief Complaint: Chest pain External records reviewed: Imaging reviewed: Echocardiogram from 2 days ago shows ejection fraction 65% otherwise normal with no abnormalities noted Factors affecting care: Hypothyroidism, Social determinants of health: denies drug use History obtained from others: none Consults: none [facility] Narrative: Patient was initially tachycardic otherwise afebrile and nontoxic-appearing. Exam without stigmata of VTE, aortic dissection. No obvious focal neurologic deficits I considered the following differential diagnosis: ACS, arrhythmia, electrolyte disturbance, anemia, PE While I considered aortic dissection the patient had no physical exam findings indicative of aortic dissection, she had no pulse deficits, no obvious focal neurologic deficits, no family history of connective tissue diseases. There is no indication for advanced imaging of the chest at this time. ALL IMAGES (IF OBTAINED) HAVE BEEN PERSONALLY REVIEWED AND INTERPRETED BY MYSELF. High-sensitivity troponin is negative, no evidence of myocardial ischemia x 2 D-dimer negative making VTE and dissection less likely I have personally reviewed the patient's chest x-ray. Chest x-ray is unremarkable for pulmonary edema, pneumothorax, pneumonia or focal cardiopulmonary abnormality. BMP with mild hypokalemia otherwise no other significant electrolyte abnormalities, no acute kidney injury, Lipase elevated likely not contributory to the patient's case however it may cause level of epigastric discomfort. Will recommend bland diet. BNP negative making heart failure less likely On reevaluation the patient's heart rate improved from 123-107, blood pressure improved. She appears more comfortable. No acute life-limiting etiology could be identified. The patient is appropriate for discharge home The patient and/or family, caregivers express understanding. The patient and/or family, caregivers agrees with the plan. Shared decision making: I will have a discussion with the patient and or visitors regarding risk/benefits of further testing or admission. They will be made aware of of the risk/benefits inherent in this decision they will be given the opportunity to voice understanding. Total critical care time today provided was at least 0 minutes. This excludes separately billable procedures. Critical care time (if documented) is secondary to the patient having high probability of clinically significant/life threatening deterioration in the patient's condition which required my urgent intervention. Impression: 1. Tachycardia 2. Chest pain 3. Elevated lipase 4. Hypokalemia Dispo: Discharge home This note was generated with [employer] #[employer] dictation software. It may contain incorrect words, spelling, and punctuation that were not noted in review of the chart prior to signing. Lab Data Labs: Laboratory Results - last 24 hr 11/14/23 11/14/23 20:00 22:15 D-Dimer Quant (PE/DVT) < 0.27 L Sodium 140 Potassium 3.4 L Chloride 107 Carbon Dioxide 25.0 Anion Gap 8 BUN 20 H Creatinine 1.16 H Estim Creat Clear Calc 53.03 Est GFR (MDRD) Af Amer 68 Est GFR (MDRD) Non-Af 56 L BUN/Creatinine Ratio 17.2 Glucose 98 Calcium 8.8 Total Bilirubin 0.30 AST 12 L ALT 12 L Alkaline Phosphatase 69 Troponin I High Sens < 3 L 3 B-Natriuretic Peptide 5.8 Total Protein 7.9 Albumin 4.0 Globulin 3.9 Albumin/Globulin Ratio 1.0 Lipase 117 H Radiography Diagnostic Testing: Clinical Impression(s) from Imaging Studies Chest X-Ray 11/14/23 20:05 IMPRESSION: No radiographic evidence of acute cardiopulmonary disease. Electronically Signed: Aelx Plata MD at 20:48 EDT Reading Location ID and State: [facility] / [place] , Service support , Discharge Plan Triage Chief Complaint: Chest Pain ED Provider: Andry Balck Dx/Rx/DC Orders Clinical Impression: Hypokalemia, Tachycardia Instructions: ED Chest Pain, Noncardiac Prescriptions: New ondansetron 4 mg tablet,disintegrating 4 mg PO Q8H PRN PRN (Reason: Nausea) Qty: 10 0RF No Action levothyroxine 112 mcg tablet 112 mcg PO DAILY Patient Comments: [NO ORIGINAL SIG] Primary Care Provider: Eileen Cabral Referrals: Eileen Cabral DO [Primary Care Provider] - Activity Restrictions/Additional Instructions: Thank you for trusting us with your care today! Please take Tylenol (2 pills, 650 mg), ibuprofen (2 pills, 400 mg) every 6 hours as needed for pain and fever control. Please drink plenty of fluids. Please take Zofran as needed for nausea control. Please return to the emergency department if your symptoms change or worsen. Please follow with your primary care physician for further outpatient evaluation and management. Print Language: [place] Citizen Disposition Disposition: Home, Self Care Discharge Date/Time: 11/14/23 23:09
[2023-11-14] MEDS: Ondansetron 4 MG/2 ML Vial IV (19:59)
[2023-11-14] MEDS: 0.9% Normal Saline (1000mL) 1,000 ML 1000 ML IV (19:59)
--- NOTE | 2023-11-14 20:05 | RAD_ITS ---
EXAM: XR CHEST, 1 VIEW CLINICAL INDICATION: CP TECHNIQUE: Frontal view of the chest. COMPARISON: 04.13.21 FINDINGS: LUNGS AND PLEURAL SPACES: Unremarkable. No consolidation or edema. No pneumothorax. No effusion. HEART: Unremarkable. Cardiac silhouette not enlarged. MEDIASTINUM: Central airways and mediastinal contour are unremarkable. BONES/JOINTS: Unremarkable. No acute fracture. SOFT TISSUES: Unremarkable. RAD/Chest 1 View (Portable) IMPRESSION: No radiographic evidence of acute cardiopulmonary disease. Electronically Signed: Alex Plata MD at 20:48 EDT ,
[2023-11-14 20:29] LABS: AST(SGOT) 12 U/L (15-37); Alanine Aminotransfer ALT/SGPT 12 U/L (13-56); Alkaline Phosphatase 69 U/L (45-117); Anion Gap 8 (5-15); BUN 20 mg/dL (7-18); BUN/Creat Ratio 17.2 RATIO (10-20); Calcium,Total 8.8 mg/dL (8.5-10.1); Chloride 107 mmol/L (98-107); Creatinine, Serum 1.16 mg/dL (0.55-1.02); EST Glomerular Filtration Rate 56 mL/min (>60); Est Glom Filt Rate - Afr Amer 68 mL/min (>60); Estimated Creatinine Clearance 53.03 ml/min; Globulin 3.9 g/dL (2.2-4.2); Glucose 98 mg/dL (74-106); Lipase 117 U/L (13-75); Potassium 3.4 mmol/L (3.5-5.1); Protein, Total 7.9 g/dL (6.4-8.2); Sodium Level 140 mmol/L (136-145); Troponin-I HS (w/2H Reflex) < 3 pg/mL (3.0-54.0)
[2023-11-14 20:33] LABS: D-Dimer Quantitative (DVT/PE) < 0.27 FEU/ug/m (0.27-0.49)
[2023-11-14] MEDS: Potassium Chloride Oral Tablet 20 MEQ 40 MEQ PO (21:02)
[2023-11-14 22:42] LABS: Troponin-I HS 3 pg/mL (3.0-54.0)
[2023-11-14 22:58] LABS: BNP,B-Type NATRIURETIC PEPTIDE 5.8 pg/mL (0-100)
== END 2023-11-14 23:09 | disposition home or self-care (01) ==
PROVIDERS: Emergency Provider Emergency Medicine; PCP Family Medicine; Visit Provider Emergency Medicine
DX: R07.9 Chest pain, unspecified (principal); R00.0 Tachycardia, unspecified; R74.8 Abnormal levels of other serum enzymes; E87.6 Hypokalemia; E03.9 Hypothyroidism, unspecified; Z79.890 Hormone replacement therapy
CPT/HCPCS: 71045; 80048; 80053; 83690; 83880; 84484; 85379; 93005; 96361; 96374; 99285; J7030; A4216; J2405

== ENCOUNTER 2023-12-13 15:55 | Emergency (ER) | payer OTHER, SELFPAY ==
[2023-12-13] VITALS (10 sets, daily range): BP systolic 111–146; BP diastolic 62–100; PULSE 72–102; RESP 14–24; TEMP 36.1–37.2; O2SAT 97–100; BMI 23.1
--- NOTE | 2023-12-13 16:10 | CT_ITS ---
STUDY: CTA CHEST REASON FOR EXAM: Female, 38 years old. chest pain, dyspnea RADIATION DOSAGE (If Supplied By Facility): CTDIvol = ( 6.87 ) mGy, DLP = ( 236.61 ) mGycm TECHNIQUE: The examination was performed with the intravenous administration of IV 100mL Isovue-370. Post-processing of the angiographic images was performed, with multiplanar reformation and 3D reconstruction. Individualized dose optimization techniques were used for this CT. COMPARISON: 04/13/2021. FINDINGS: Normal enhancement of the main pulmonary artery and right and left pulmonary arteries. Normal enhancement of the bilateral peripheral pulmonary arteries. There is no demonstrated pulmonary embolism. Normal thoracic aorta and visualized great vessels. There is no demonstrated aortic dissection. Normal heart and pericardium. Normal mediastinum. Normal hilar regions. Normal visualized trachea and bronchi. The lungs are well expanded. Normal pulmonary parenchyma. Normal pleura. Normal chest wall structures. Normal osseous structures. Normal visualized upper abdomen. CT/CTA Chest W/WO Contrast IMPRESSION: Normal CTA chest examination, without a demonstrated pulmonary embolism or arterial dissection. Electronically Signed: Brady Kathleen MD at 17:57 EDT ,
--- NOTE | 2023-12-13 16:11 | EKG12_ITS ---
Test Reason : CP/SOB Blood Pressure : / mmHG Vent. Rate : 098 BPM Atrial Rate : 098 BPM P-R Int : 154 ms QRS Dur : 074 ms QT Int : 332 ms P-R-T Axes : 071 069 033 degrees QTc Int : 423 ms Normal sinus rhythm with sinus arrhythmia Possible Left atrial enlargement T wave abnormality, consider inferior ischemia Abnormal ECG Confirmed by LUZ MARIA BONDS, JT ([id number]), editor map [employer] ([id number]) on 12/14/2023 1:15:12 PM Referred By: Confirmed By:JT LOERA MD
[2023-12-13 16:27] LABS: Absolute Lymphocyte Count 1.34 X10^3/uL (0.83-4.51); Basophil# 0.03 X10^3/uL; Basophil% 0.4 % (0-1); Eosinophil# 0.07 X10^3/uL; Eosinophils% 0.9 % (0-5); Hematocrit 40.9 % (37-47); Hemoglobin 13.7 g/dL (12.0-15.0); Lymphocyte # 1.34 X10^3/ul (0.83-4.51); Lymphocyte % 16.8 % (19-41); Mean Corp Hgb Conc 33.5 g/dL (32-36); Mean Corpuscular Hgb 28.6 pg (27.0-32.0); Mean Corpuscular Volume 85.4 fL (81-99); Mean Platelet Vol. 11.1 fl (6.2-12.0); Monocyte# 0.48 X10^3/uL; NRBC Flagged by Analyzer 0 % (0-5); Neutrophil # 6.03 X10^3/uL (2.7-7.7); Neutrophil % 75.6 % (47-70); Platelet Count 324 K/mm3 (150-450); RBC Distribution Width CV 11.6 % (11.6-14.6); RBC Distribution Width SD 35.9 fl (35.1-43.9); Red Blood Count 4.79 M/mm3 (4.2-5.4)
[2023-12-13 16:35] LABS: Internal QC Validated? YES +Cl - CLEAR BKGD; Pregnancy, Serum, hCG Quali. NEGATIVE Negative
[2023-12-13] MEDS: Ondansetron 4 MG/2 ML Vial IV (16:35)
[2023-12-13] MEDS: 0.9% Normal Saline (500mL Bag) 500 ML 1000 ML IV (16:35)
[2023-12-13 16:45] LABS: Anion Gap 8 (5-15); BUN 15 mg/dL (7-18); BUN/Creat Ratio 14.7 RATIO (10-20); Calcium,Total 9.8 mg/dL (8.5-10.1); Chloride 108 mmol/L (98-107); Creatinine, Serum 1.02 mg/dL (0.55-1.02); EST Glomerular Filtration Rate 65 mL/min (>60); Est Glom Filt Rate - Afr Amer 79 mL/min (>60); Estimated Creatinine Clearance 60.31 ml/min; Glucose 125 mg/dL (74-106); Potassium 3.6 mmol/L (3.5-5.1); Sodium Level 138 mmol/L (136-145); Troponin-I HS < 3 pg/mL (3.0-54.0)
--- NOTE | 2023-12-13 17:05 | EDS_ITS ---
HPI History of Present Illness Chief Complaint: Shortness of Breath Informant: patient and spouse/S.O. Narrative Narrative: Presents to ED worsening chest tightness dyspnea since yesterday. Patient has been having on and off symptoms for the past year. Reports has had an echocardiogram as an outpatient reporting pulmonary hypertension. She does not smoke. 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 No recent travel, surgeries, or immobilizations. No history of PE or DVT. Reports family history of heart problems on her dad side. She states she is pending evaluation by cardiology as an outpatient. She states she had COVID in 2020 heart rate in the 140s for a few days she was not hospitalized. History of hypothyroidism on medications. She reports exertional dyspnea worsened since yesterday. No recent leg cramping or swelling. She reports she was to the ED 2 weeks ago with a workup negative including D-dimer. Mild dry cough for last 2 days. Prior similar symptoms: Yes PFSH PFSH Medical History Chronic allergic otitis media, unspecified ear Thyroid disease H/O cardiac murmur Headache, migraine Anxiety and depression Seasonal allergies Home Medications ?Medication ?Instructions ?Recorded ?Last Taken ?Type levothyroxine 112 mcg tablet 112 mcg PO DAILY 11/14/23 Unknown History ondansetron 4 mg disintegrating 4 mg PO Q8H PRN PRN Nausea #10 tabs 11/14/23 Unknown Rx tablet Allergy/AdvReac Type Severity Reaction Status Date / Time No Known Allergies Allergy Verified 12/13/23 15:56 Family History Mother Hypertension Grandfather Hypertension Heart disease Skin cancer Grandmother CVA (cerebral vascular accident) Hypothyroid Father Seizures CVA (cerebral vascular accident) Aunt Breast cancer Heart disease Social History Smoking Status: Never smoker second hand exposure: No alcohol intake: never substance use type: does not use caffeine: Yes frequency: 1-2 times per week seatbelt use: always do you feel safe at home: Yes additional social history: Jayden Sorto 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 [employer] ROS ED Constitutional Constitutional ED: Denies chills, fever(s) or sweats Eyes Eyes: Denies change in vision ENT ENT ED: Denies dysphagia or sore throat Cardiovascular Cardiovascular: Reports chest pain; Denies leg edema, palpitations or racing heartbeat Respiratory/Chest Respiratory/Chest: Reports cough, dyspnea and dyspnea on exertion Gastrointestinal Gastrointestinal: Denies abdominal pain, diarrhea, nausea or vomiting Genitourinary Genitourinary ED: Denies dysuria, hematuria or urinary frequency Musculoskeletal Musculoskeletal: Denies back pain, extremity pain or neck pain Integumentary Denies rash or wounds Neurologic Neurologic: Denies headache(s), paresthesias or weakness EXAM Physical Exam Const Vital Signs: 12/13/23 15:55 12/13/23 15:56 12/13/23 15:57 Temperature 97.6 F L 97.6 F L Temperature Source Temporal Temporal Pulse Rate 102 H 102 H Respiratory Rate 22 H 22 H Respiratory Effort Normal Non-Labored Respiratory Depth Normal Respiratory Pattern Normal Blood Pressure 146/100 H 146/100 H Blood Pressure Mean 115 115 Pulse Ox 100 100 Oxygen Delivery Method Room Air Room Air Room Air 12/13/23 16:57 12/13/23 17:03 12/13/23 17:15 Temperature 98.8 F Temperature Source Oral Pulse Rate 94 77 Respiratory Rate 18 15 Respiratory Effort Respiratory Depth Respiratory Pattern Blood Pressure 131/91 H 130/62 H Blood Pressure Mean 104 83 Pulse Ox 97 100 Oxygen Delivery Method Room Air 12/13/23 17:21 12/13/23 17:30 12/13/23 18:00 Temperature 99 F Temperature Source Oral Pulse Rate 83 76 72 Respiratory Rate 17 14 24 H Respiratory Effort Respiratory Depth Respiratory Pattern Blood Pressure 123/84 H 126/93 H Blood Pressure Mean 97 104 Pulse Ox 100 100 97 Oxygen Delivery Method Room Air 12/13/23 19:00 12/13/23 19:55 Temperature 98.2 F 97 F L Temperature Source Oral Pulse Rate 87 84 Respiratory Rate 17 16 Respiratory Effort Respiratory Depth Respiratory Pattern Blood Pressure 111/83 H 113/72 Blood Pressure Mean 92 85 Pulse Ox 97 99 Oxygen Delivery Method Room Air Positive well nourished and well developed General Appearance ED: well developed and NAD HEENT Reports moist mucous membranes normocephalic and atraumatic Eyes EOMs intact bilaterally and conjunctivae normal General Eye ED: Yes normal appearance of both eyes Neck no lymphadenopathy and supple General: Negative for tenderness Chest Wall Chest: Negative for tenderness Resp normal respiratory effort and normal air movement Effort and Inspection: symmetric chest movement; Negative for respiratory distress Cardio regular rhythm and no murmurs Rate: tachycardic Peripheral Pulses: pulses 2+ throughout GI normal to inspection, nondistended, normoactive bowel sounds and non-tender Palpation: Negative for guarding or rebound tenderness present Back/Spine no CVA tenderness and no thoracic nor lumbar tenderness Extremity normal to inspection General Extremety ED: Negative for edema or tenderness General Extremity: Negative for edema Neuro oriented x3 and no sensory deficits noted Sensorium / Orientation: awake and alert Skin no rashes or lesions noted and no wounds MDM MDM MDM Narrative Medical decision making narrative: Interventions / MDM: Differential diagnosis: Dyspnea, pulmonary hypertension Diagnosis considered but do not suspect: Pulmonary embolus however CT negative. ACS however EKG with no ischemic findings, cardiac enzymes negative. My EKG interpretation: Sinus rhythm 98, no ST changes, T wave inversions inferior lateral leads. Similar changes November 2023. Imaging independently reviewed and interpreted by myself: CT angiogram chest: No pulmonary embolism, no acute process. Also read by radiology. External documents reviewed: Echocardiogram from November 12, 2023: Mild pulm hypertension with pulm arterial pressure of 30. Test considered but not ordered:N/A ED course: Patient presenting with chest pain dyspnea that is worsened. On and off symptoms for the past year. Cardiac workup initiated. Discussed with exertional dyspnea negative workup recently, will obtain a CT angiogram of the chest for further rule out. 1830: Initial troponin negative. Hemoglobin 13. Creatinine 1.02. CT angiogram chest negative. Repeat troponin pending. Reviewed her records noted the echocardiogram with mild pulmonary arterial hypertension pressure at 30 mmHg. Repeat troponin negative. Discussed with patient with her EKG changes new last month she had an echocardiogram that was normal which was more reassuring. She reported that her cardiology team possible plan a right heart cath for further evaluation outpatient. At this time I feel this can be planned as an outpatient. Outpatient follow-up with her cardiology team as planned. All questions were answered. Re-evaluation: stable Disposition discussed with patient/family/significant other: Patient and significant other Case discussed with consulting clinician: N/A This note was generated with [employer] dictation software. It may contain incorrect words, spelling, and punctuation that were not noted in checking the note before signing. Lab Data Attestation: I reviewed the patient's lab results. Labs: Laboratory Results - last 24 hr 09/02/24 09/02/24 16:21 18:14 WBC 8.0 RBC 4.79 Hgb 13.7 Hct 40.9 MCV 85.4 MCH 28.6 MCHC 33.5 RDW Std Deviation 35.9 RDW Coeff of Jaime 11.6 Plt Count 324 MPV 11.1 Immature Gran % (Auto) 0.300 Neut % (Auto) 75.6 H Lymph % (Auto) 16.8 L [place] % (Auto) 6.0 Eos % (Auto) 0.9 Baso % (Auto) 0.4 Absolute Neuts (auto) 6.0 Absolute Lymphs (auto) 1.34 Nucleated RBC % 0 Sodium 138 Potassium 3.6 Chloride 108 H Carbon Dioxide 22.0 Anion Gap 8 BUN 15 Creatinine 1.02 Estim Creat Clear Calc 60.31 Est GFR (MDRD) Af Amer 79 Est GFR (MDRD) Non-Af 65 BUN/Creatinine Ratio 14.7 Glucose 125 H Calcium 9.8 Troponin I High Sens < 3 L 4 Serum , Qual NEGATIVE Radiography Diagnostic Testing: Clinical Impression(s) from Imaging Studies Chest CTA 12/13/23 16:10 IMPRESSION: Normal CTA chest examination, without a demonstrated pulmonary embolism or arterial dissection. Electronically Signed: Brady Kathleen MD at 17:57 EDT , Discharge Plan Triage Chief Complaint: Shortness of Breath ED Provider: Malik Marks Dx/Rx/DC Orders Clinical Impression: Chest pain, Dyspnea, Pulmonary hypertension Instructions: Pulmonary Hypertension, ED Chest Pain, Uncertain Cause, ED Dyspnea Prescriptions: No Action levothyroxine 112 mcg tablet 112 mcg PO DAILY Patient Comments: [NO ORIGINAL SIG] ondansetron 4 mg tablet,disintegrating 4 mg PO Q8H PRN PRN (Reason: Nausea) Qty: 10 0RF Primary Care Provider: Eileen Cabral Referrals: Eileen Cabral DO [Primary Care Provider] - Rufina Rivera PA [Med Staff - Adv Practice Prof] - 3-5 Days Activity Restrictions/Additional Instructions: CTA chest negative for any pulmonary embolism. Your cardiac workup negative today. EKG with T wave inversions inferior lateral leads that was there a month ago. Review of your echocardiogram from November 11 noted mild pulmonary hypertension. Follow-up with your cardiology team. Print Language: Upper Sorbian Disposition Disposition: Home, Self Care Discharge Date/Time: 12/13/23 19:55
[2023-12-13 18:56] LABS: Troponin-I HS 4 pg/mL (3.0-54.0)
== END 2023-12-13 19:55 | disposition home or self-care (01) ==
PROVIDERS: Emergency Provider Emergency Medicine; PCP Family Medicine; Visit Provider Emergency Medicine
DX: R07.9 Chest pain, unspecified (principal); I27.20 Pulmonary hypertension, unspecified; R06.00 Dyspnea, unspecified; Z79.890 Hormone replacement therapy; Z79.899 Other long term (current) drug therapy; E07.9 Disorder of thyroid, unspecified
CPT/HCPCS: 71275; 80048; 84484; 84703; 85025; 93005; 96361; 96374; 99284; J7040; Q9967; A4216; J2405

== ENCOUNTER 2023-12-17 09:11 | Observation (INO) | payer OTHER, SELFPAY ==
[2023-12-17] VITALS (11 sets, daily range): BP systolic 111–171; BP diastolic 64–109; PULSE 74–122; RESP 13–21; TEMP 36.6–37; O2SAT 73–100; BMI 22.8; BMI 23.0
--- NOTE | 2023-12-17 09:25 | EKG12_ITS ---
Test Reason : GENERAL Blood Pressure : / mmHG Vent. Rate : 087 BPM Atrial Rate : 087 BPM P-R Int : 152 ms QRS Dur : 074 ms QT Int : 350 ms P-R-T Axes : 069 067 038 degrees QTc Int : 421 ms Normal sinus rhythm Nonspecific T wave abnormality Abnormal ECG Confirmed by LUZ MARIA BONDS, JT ([id number]), editor managing newspaper SOLIS KYLE ([id number]) on 12/20/2023 6:46:55 AM Referred By: Confirmed By:JT LOERA MD
--- NOTE | 2023-12-17 09:50 | RAD_ITS ---
STUDY: X-RAY CHEST REASON FOR EXAM: Female, 38 years old. Chest pain and shortness of breath. TECHNIQUE: PA and lateral views of the chest. COMPARISON: Comparison is made with prior study dated November 14, 2023. FINDINGS: EKG electrodes are seen. Hyperinflation. The lungs are clear. Normal size heart. Normal mediastinum and ankit. Normal visualized pulmonary arteries. Normal visualized aortic arch and descending thoracic aorta. Normal visualized thoracic spine. Normal visualized ribs, clavicles, and shoulders. There is no demonstrated abnormality of the visualized soft tissue structures of the upper abdomen. RAD/Chest PA and Lateral IMPRESSION: Hyperinflation. The lungs are clear. Electronically Signed: Pascual Oropeza MD at 10:17 EDT ,
[2023-12-17 10:20] LABS: Absolute Lymphocyte Count 1.02 X10^3/uL (0.83-4.51); Absolute Neutrophil Count 8.9 X10^3/uL (2.0-7.7); Basophil# 0.03 X10^3/uL; Basophil% 0.3 % (0-1); Eosinophil# 0.02 X10^3/uL; Eosinophils% 0.2 % (0-5); Hematocrit 41.2 % (37-47); Hemoglobin 13.9 g/dL (12.0-15.0); Lymphocyte # 1.02 X10^3/ul (0.83-4.51); Lymphocyte % 9.8 % (19-41); Mean Corp Hgb Conc 33.7 g/dL (32-36); Mean Corpuscular Volume 85.8 fL (81-99); Mean Platelet Vol. 11.2 fl (6.2-12.0); Monocyte# 0.43 X10^3/uL; Monocyte% 4.1 % (0-10); NRBC Flagged by Analyzer 0 % (0-5); Neutrophil # 8.85 X10^3/uL (2.7-7.7); Neutrophil % 85.3 % (47-70); Platelet Count 362 K/mm3 (150-450); RBC Distribution Width CV 11.4 % (11.6-14.6); White Blood Count 10.4 K/mm3 (4.4-11.0)
[2023-12-17 10:35] LABS: Anion Gap 9 (5-15); BUN 15 mg/dL (7-18); BUN/Creat Ratio 13.2 RATIO (10-20); Calcium,Total 9.7 mg/dL (8.5-10.1); Chloride 107 mmol/L (98-107); Creatinine, Serum 1.14 mg/dL (0.55-1.02); EST Glomerular Filtration Rate 57 mL/min (>60); Est Glom Filt Rate - Afr Amer 69 mL/min (>60); Estimated Creatinine Clearance 53.96 ml/min; Glucose 118 mg/dL (74-106); Potassium 3.7 mmol/L (3.5-5.1); Sodium Level 139 mmol/L (136-145); Troponin-I HS (w/2H Reflex) 3 pg/mL (3.0-54.0)
[2023-12-17 11:18] LABS: BNP,B-Type NATRIURETIC PEPTIDE 8.6 pg/mL (0-100)
[2023-12-17 11:54] LABS: Reflex Troponin-HS? (from REC) Y
[2023-12-17 12:18] LABS: Lipase 79 U/L (13-75)
[2023-12-17 12:41] LABS: Troponin-I HS < 3 pg/mL (3.0-54.0)
--- NOTE | 2023-12-17 14:36 | ED.RN ---
ambulated pt with pulse ox. pt became dizzy upon standing, HR was 142 at highest; pulse ox 92%-99%
--- NOTE | 2023-12-17 15:05 | HP.PCM.HOS_ITS ---
[facility] - General General Date of Admission: 12/17/23 Date of Service: 12/17/23 HPI Narrative YOVANY MANUEL, is a 38 F with a PMH as outlined who presents via the ED on 12/17/2023 with a complaint of shortness of breath and chest pain. She says her symptoms have been going on for about a year now have been gradually worsening. She was told by her PCP that it was due to anxiety and she was managed for this. However his symptoms persisted so she was referred for 2D echo. She says she was told that she had pulmonary hypertension per the 2D echo and so she has been referred to see cardiology. However her pain intensified over the last few days. Pain was retrosternal and sharp, aggravated by movement and relieved by rest. This was seen with her shortness of breath. She denied any history of blood clots though she said she had a strong history of blood clots in her family with namely her father and her grandmother having blood clots. She denies any long distance travel recently. She was seen in the ED on 12/13/2023 for the symptoms and had a CT of the chest which was negative for any evidence of PE. The chest pain is not reproducible with palpation. She did have a 2D echo done on 11/12/2023 which showed RVSP of 30 mmHg and it is on this basis that she says she was told that she has pulmonary hypertension. Vitals in the ED were temperature of 97.9, heart rate of 77 and blood pressure 129/86. According to the ED doctor her heart rate went up to the 150s when she got up to ambulate. Respiratory rate was 18 and she was saturating at 99% on room air. CBC was unremarkable and BMP was significant for creatinine of 1.14. Initial troponin was less than 3 and BNP was 8.6. TSH was 1.62. Chest x-ray showed no acute cardiopulmonary pathology. CTA was not done as she had just had a CTA 4 days ago. She has been admitted to be managed for chest pain and shortness of breath with ambulatory tachycardia of unknown etiology. [facility] Medical History Chronic allergic otitis media, unspecified ear Thyroid disease H/O cardiac murmur Headache, migraine Anxiety and depression Seasonal allergies Home Medications ?Medication ?Instructions ?Recorded ?Last Taken ?Type levothyroxine 112 mcg tablet 112 mcg PO DAILY 11/14/23 12/16/23 22:00 History ondansetron 4 mg disintegrating 4 mg PO Q8H PRN PRN Nausea #10 tabs 11/14/23 Unknown Rx tablet Allergy/AdvReac Type Severity Reaction Status Date / Time No Known Allergies Allergy Verified 12/17/23 09:11 Family History Mother Hypertension Grandfather Hypertension Heart disease Skin cancer Grandmother CVA (cerebral vascular accident) Hypothyroid Father Seizures CVA (cerebral vascular accident) Aunt Breast cancer Heart disease Social History Smoking Status: Never smoker second hand exposure: No alcohol intake: never substance use type: does not use caffeine: Yes frequency: 1-2 times per week seatbelt use: always do you feel safe at home: Yes additional social history: [employer] 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 [employer] Constitutional Constitutional: Reports fatigue and malaise; Denies anorexia, change in weight, fever(s) or weakness Eyes Eyes: Denies change in vision ENT HEENT: Denies dysphagia, headache(s), sinus pressure or sore throat Cardiovascular Cardiovascular: Reports chest pain, dyspnea on exertion, palpitations and rapid heart rate; Denies edema, lightheadedness, orthopnea, paroxysmal nocturnal dyspnea or syncope Respiratory/Chest Respiratory/Chest: Reports dyspnea and shortness of breath with exertion; Denies cough, excessive phlegm production, hemoptysis, productive cough, shortness of breath at rest or wheezing Gastrointestinal Gastrointestinal: Denies abdominal pain, constipation or diarrhea Genitourinary Genitourinary: Denies burning urination or dysuria Neurologic Neurologic: Denies confusion, dizziness, focal weakness, headache(s) or numbness Psychiatric Psychiatric: Reports anxiety; Denies depression Vital Signs Vital Signs Vital Signs: 12/17/23 09:12 12/17/23 09:14 12/17/23 09:42 Temperature 97.9 F Temperature Source Temporal Pulse Rate 122 H Respiratory Rate 18 Respiratory Effort Short of Breath Respiratory Depth Normal Respiratory Pattern Normal Blood Pressure 171/109 H Blood Pressure Mean 129 Pulse Ox 100 Oxygen Delivery Method Room Air Room Air Room Air 12/17/23 10:14 12/17/23 11:00 12/17/23 12:00 Temperature Temperature Source Pulse Rate 89 74 76 Respiratory Rate 16 13 18 Respiratory Effort Respiratory Depth Respiratory Pattern Blood Pressure 129/64 H 111/78 117/73 Blood Pressure Mean 85 89 87 Pulse Ox 98 100 100 Oxygen Delivery Method Room Air Room Air Room Air 12/17/23 13:00 12/17/23 14:00 12/17/23 15:00 Temperature Temperature Source Pulse Rate 96 84 77 Respiratory Rate 21 H 16 18 Respiratory Effort Respiratory Depth Respiratory Pattern Blood Pressure 133/93 H 133/81 H 129/86 H Blood Pressure Mean 106 98 100 Pulse Ox 100 100 99 Oxygen Delivery Method Room Air Weight Weight: 124 lb 11.2 oz Body Mass Index (BMI) 22.8 Physical Exam Const alert, oriented x3 and no apparent distress General Appearance: cooperative HEENT normocephalic, head/scalp atraumatic, hearing grossly normal bilaterally, moist oral mucous membranes and oropharynx normal Mouth: oral and palatal mucosa normal Eyes PERRL, EOMs intact bilaterally and conjunctivae normal Neck no lymphadenopathy and supple Resp normal respiratory effort, no retractions, no use of accessory muscles and clear to auscultation bilaterally Cardio regular rate, regular rhythm, S1 normal heart sound, S2 normal heart sound and no murmurs GI normal to inspection, nondistended, normoactive bowel sounds, soft to palpation, non-tender and non-distended Extremity normal to inspection, full ROM and no clubbing, cyanosis or edema Neuro oriented x3, CN's II-XII intact bilaterally, moves all extremities and no focal motor deficits Sensorium / Orientation: awake Motor Exam: strength 5/5 throughout Psych affect normal Results Lab / Micro Data 12/17/23 09:45 12/17/23 09:45 Labs: Laboratory Results - last 24 hr 12/17/23 09:45: WBC 10.4, RBC 4.80, Hgb 13.9, Hct 41.2, MCV 85.8, MCH 29.0, MCHC 33.7, RDW Std Deviation 36.0, RDW Coeff of Jaime 11.4 L, Plt Count 362, MPV 11.2, Immature Gran % (Auto) 0.300, Neut % (Auto) 85.3 H, Lymph % (Auto) 9.8 L, [place] % (Auto) 4.1, Eos % (Auto) 0.2, Baso % (Auto) 0.3, Absolute Neuts (auto) 8.9 H, Absolute Lymphs (auto) 1.02, Nucleated RBC % 0, Sodium 139, Potassium 3.7, Chloride 107, Carbon Dioxide 23.0, Anion Gap 9, BUN 15, Creatinine 1.14 H, Estim Creat Clear Calc 53.96, Est GFR (MDRD) Af Amer 69, Est GFR (MDRD) Non-Af 57 L, BUN/Creatinine Ratio 13.2, Glucose 118 H, Calcium 9.7, Troponin I High Sens 3, B-Natriuretic Peptide 8.6, TSH 1.620 12/17/23 11:45: Troponin I High Sens < 3 L, Lipase 79 H Micro: Microbiology 12/17/23 09:45 Mucosa - Nasopharyngeal SARS-CoV-2, Influenza & RSV (PCR) - Final Imaging Radiology Impression Chest X-Ray 12/17/23 09:50 IMPRESSION: Hyperinflation. The lungs are clear. Electronically Signed: Pascual Oropeza MD at 10:17 EDT , Assessment & Plan Assessment/Plan (1) Dyspnea: (2) Chest pain: PLAN: Plan #Chest pain and shortness of breath * Etiology is unclear. His symptoms have been going on for about a year but says they have worsened recently. She denies any history of blood clots and recently had a CT of the chest 4 days prior to this admission which was negative for any evidence of PE. She however does have a strong family history of PE in her father and grandmother. * Heart rate did go up when she tried to ambulate in the ED. It went up to the 150s. At time of my review she was in normal sinus rhythm. Her EKG also showed normal sinus rhythm with no acute ST changes. * 2D echo done on 11/12/2023 showed RVSP of 30 mmHg and EF of 65%. I therefore do not think that her symptoms are due to the pulmonary hypertension like she says she was told. It is really not clear to me what is causing her symptoms. I am concerned that she may have some underlying arrhythmia and a very, very long shot might be chronic thromboembolic phenomenon in light of her persistent chest pain and shortness of breath and strong family history of blood clots. I think it may be reasonable to get a VQ scan just to make sure there is no evidence to indicate perfusion mismatch that could be contributing to his symptoms. * She would likely need a 30-day event monitor upon discharge to evaluate for any underlying arrhythmias that she may have. Her anxiety may also be a contributing factor but she does say that she thinks her anxiety has been fairly well-controlled and she has high functioning. * Admit to PCU. Hydrate gently with IV fluids. Her troponins x 2 were negative and BNP was only 8.6. TSH is also 1.62. * With a tachycardia recurs and persists, she will benefit from a cardiology consult. * #Hypothyroidism: On Synthroid #Anxiety and depression: * Does not seem to be on any medication for this. * To follow-up with her PCP for referral to psychiatrist as needed. * The anxiety could be contributing to episodic chest pain but this would be a diagnosis of exclusion once any other organic pathology is ruled out. DVT prophylaxis: Lovenox Charges/Coding Visit Charges Inpatient E&M: 21840 Init Hosp L2
--- NOTE | 2023-12-17 15:44 | NM_ITS ---
INDICATION: CHEST PAIN, SHORTNESS OF BREATH FOR A YEAR, WORSENING -- PULMONARY HYPERTENSION PER PATIENT EXAMINATION: NUCLEAR MEDICINE LUNG QUANT TECHNIQUE: 6 mCi [id number] were intravenously administered and anterior, posterior, and oblique lung scintiphotos were obtained. COMPARISON: Chest x-ray of 12/17/2023 FINDINGS: There is homogeneous uptake throughout the visualized portions of both lungs. No perfusion defect is seen. NM/Quant Lung Vent/Perf Scan IMPRESSION: Low probability for pulmonary embolism. Electronically Signed: Juan Ramon Son MD at 10:36 EDT ,
--- NOTE | 2023-12-17 15:56 | EX.ED.DYSGE1 ---
HPI History of Present Illness Chief Complaint: Shortness of Breath Narrative Narrative: Patient is a 38-year-old female with past medical history migraine headaches, anxiety, depression, thyroid disorder, recent diagnosis of pulmonary hypertension who presents to the emergency department the chief complaint of chest pain, shortness of breath. Patient states that for the past several days she has not been feeling well and states that she gets very short of breath with minimal exertion. Patient denies any recent sick contacts. Patient denies any history of blood clots in her legs or lungs denies any recent travel history. PFSH PFS Medical History Chronic allergic otitis media, unspecified ear Thyroid disease H/O cardiac murmur Headache, migraine Anxiety and depression Seasonal allergies Home Medications ?Medication ?Instructions ?Recorded ?Last Taken ?Type levothyroxine 112 mcg tablet 112 mcg PO DAILY 11/14/23 Unknown History ondansetron 4 mg disintegrating 4 mg PO Q8H PRN PRN Nausea #10 tabs 11/14/23 Unknown Rx tablet Allergy/AdvReac Type Severity Reaction Status Date / Time No Known Allergies Allergy Verified 12/17/23 09:11 Family History Mother Hypertension Grandfather Hypertension Heart disease Skin cancer Grandmother CVA (cerebral vascular accident) Hypothyroid Father Seizures CVA (cerebral vascular accident) Aunt Breast cancer Heart disease Social History Smoking Status: Never smoker second hand exposure: No alcohol intake: never substance use type: does not use caffeine: Yes frequency: 1-2 times per week seatbelt use: always do you feel safe at home: Yes additional social history: Jayden Sorto 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 Res[employer] ROS ROS ED ROS Narrative Constitutional: Denies any fevers, chills, headaches, lightheadedness, dizziness Eyes: Denies double vision blurry vision changes vision Cardiovascular: Denies chest pain or palpitations Respiratory: Denies coughing wheezing shortness of breath Abdomen: States that she has had decreased oral intake the past several days denies abdominal pain : Denies any urinary symptoms Neurological: Denies numbness, weakness, tingling Musculoskeletal: Denies back pain Skin: Denies rashes or lesions EXAM Physical Exam Narrative Exam Narrative: General: Patient lying in bed rest comfortably did not appear to be in acute distress Head: Atraumatic, normocephalic Eyes: PERRL bilaterally, EOMI bilateral, no conjunctival injection noted Neck: Soft, supple, trachea midline Cardiovascular: Regular rate and rhythm no murmurs gallops or rubs noted Respiratory: Clear to auscultation bilaterally no rales rhonchi or wheezes noted Abdomen: Soft, nondistended, no tenderness palpation, bowel sounds present x 4 Extremities: +5/5 strength noted in the bilateral upper and lower extremities, no pedal edema no exam, radial pulses +2/4 in the bilateral upper extremities Neurological: Patient following commands knew that she was at [facility] the year is 2023. NIH of 0 GCS 15 patient completed finger-nose test bilaterally without any difficulty Skin: Warm, dry, intact Const Vital Signs: 12/17/23 09:12 12/17/23 09:14 12/17/23 09:42 Temperature 97.9 F Temperature Source Temporal Pulse Rate 122 H Respiratory Rate 18 Respiratory Effort Short of Breath Respiratory Depth Normal Respiratory Pattern Normal Blood Pressure 171/109 H Blood Pressure Mean 129 Pulse Ox 100 Oxygen Delivery Method Room Air Room Air Room Air 12/17/23 10:14 12/17/23 11:00 12/17/23 12:00 Temperature Temperature Source Pulse Rate 89 74 76 Respiratory Rate 16 13 18 Respiratory Effort Respiratory Depth Respiratory Pattern Blood Pressure 129/64 H 111/78 117/73 Blood Pressure Mean 85 89 87 Pulse Ox 98 100 100 Oxygen Delivery Method Room Air Room Air Room Air 12/17/23 13:00 12/17/23 14:00 12/17/23 15:00 Temperature Temperature Source Pulse Rate 96 84 77 Respiratory Rate 21 H 16 18 Respiratory Effort Respiratory Depth Respiratory Pattern Blood Pressure 133/93 H 133/81 H 129/86 H Blood Pressure Mean 106 98 100 Pulse Ox 100 100 99 Oxygen Delivery Method Room Air MDM MDM MDM Narrative Medical decision making narrative: Patient is a 38-year-old female who presented to the emerged part with chief complaint of dyspnea on exertion, generalized fatigue not feeling well. Patient will have a workup performed here on the differential diagnose includes but not limited to ACS, CHF, pulmonary pretension, upper respiratory infection second to viral etiology. Once workup is obtained reviewed she will be reevaluated. Patient's CBC was reviewed and was largely unremarkable no evidence of leukocytosis white blood count normal at 10.4, hemoglobin was 13.9, platelet count normal at 362. Patient's sodium normal at 139, potassium normal 3.7, creatinine was 1.14. Patient's troponin was less than 3. Patient's EKG was reviewed as well which showed sinus rhythm with a rate of 87 bpm. 3 with a delta troponin obtained at patient's proBNP normal at 8.6, lipase mildly elevated at 79 this is improved from 11/14/2023, TSH normal at 1.62. Patient's chest x-ray was reviewed and showed hyperinflation of the lungs however no focal consolidation or any other acute processes. Did attempt to ambulate the patient here and her heart rate noted to go to a rate of 145 bpm and her oxygen saturations stayed around 93%. At this point in time the patient was very symptomatic with this tachycardia and was not feeling well therefore do feel she warrants admission to the hospital for further workup and evaluation of this. Patient is agreeable with this plan. Patient's case was discussed with hospitalist Dr. Garrett who accept patient for admission. All question concerns answered bedside. Lab Data Labs: Laboratory Results - last 24 hr 12/17/23 12/17/23 09:45 11:45 WBC 10.4 RBC 4.80 Hgb 13.9 Hct 41.2 MCV 85.8 MCH 29.0 MCHC 33.7 RDW Std Deviation 36.0 RDW Coeff of Jaime 11.4 L Plt Count 362 MPV 11.2 Immature Gran % (Auto) 0.300 Neut % (Auto) 85.3 H Lymph % (Auto) 9.8 L [place] % (Auto) 4.1 Eos % (Auto) 0.2 Baso % (Auto) 0.3 Absolute Neuts (auto) 8.9 H Absolute Lymphs (auto) 1.02 Nucleated RBC % 0 Sodium 139 Potassium 3.7 Chloride 107 Carbon Dioxide 23.0 Anion Gap 9 BUN 15 Creatinine 1.14 H Estim Creat Clear Calc 53.96 Est GFR (MDRD) Af Amer 69 Est GFR (MDRD) Non-Af 57 L BUN/Creatinine Ratio 13.2 Glucose 118 H Calcium 9.7 Troponin I High Sens 3 < 3 L B-Natriuretic Peptide 8.6 Lipase 79 H TSH 1.620 Radiography Diagnostic Testing: Clinical Impression(s) from Imaging Studies Chest X-Ray 12/17/23 09:50 IMPRESSION: Hyperinflation. The lungs are clear. Electronically Signed: Pascual Oropeza MD at 10:17 EDT , Discharge Plan Triage Chief Complaint: Shortness of Breath ED Provider: Darren Taveras Dx/Rx/DC Orders Clinical Impression: Symptomatic tachycardia, Exertional shortness of breath Prescriptions: No Action levothyroxine 112 mcg tablet 112 mcg PO DAILY Patient Comments: [NO ORIGINAL SIG] ondansetron 4 mg tablet,disintegrating 4 mg PO Q8H PRN PRN (Reason: Nausea) Qty: 10 0RF Primary Care Provider: Eileen Cabral Referrals: Eileen Cabral DO [Primary Care Provider] - Print Language: Taiwanese
--- NOTE | 2023-12-17 16:27 | NURSING ---
PCU KORAM SYMPTOMATIC TACHYCARDIA
[2023-12-17 17:33] LABS: D-Dimer Quantitative (DVT/PE) 0.42 FEU/ug/m (0.27-0.49)
[2023-12-17] MEDS: 0.9% Saline Lock 10 ML Syringe IV (18:02)
[2023-12-17] MEDS: 0.9% Normal Saline (1000mL) 1,000 ML 125 ML IV (18:02)
[2023-12-17] MEDS: Acetaminophen 325 MG Tablet 650 MG PO (20:26)
--- NOTE | 2023-12-17 20:55 | PCM.HOSP.N ---
Hospitalist Note Patient with ongoing discomfort, worse with oral intake attempts. Will add protonix and GI cocktail. Noted plan for VQ scan and cardiology involvement if ongoing dyspnea/chest pain/palpitations per admitting note.
[2023-12-17] MEDS: Pantoprazole Sodium 20 MG Tablet PO (22:01)
[2023-12-17] MEDS: Lidocaine 2% Viscous15 ML UDC 15 ML PO (22:01)
[2023-12-17] MEDS: Ondansetron 4 MG/2 ML Vial IV (22:01)
[2023-12-17] MEDS: Mag /Aluminum/Simeth WCH UDC 30 ML ORAL.SUSP PO (22:11)
[2023-12-17] MEDS: LORazepam 0.5 MG Tablet PO (23:14)
--- NOTE | 2023-12-17 23:44 | EKG12_ITS ---
Test Reason : Dizziness Blood Pressure : / mmHG Vent. Rate : 076 BPM Atrial Rate : 076 BPM P-R Int : 154 ms QRS Dur : 074 ms QT Int : 382 ms P-R-T Axes : 070 068 045 degrees QTc Int : 429 ms Normal sinus rhythm Nonspecific T wave abnormality Abnormal ECG When compared with ECG of 17-DEC-2023 09:34, MANUAL COMPARISON REQUIRED, DATA IS UNCONFIRMED Confirmed by LUZ MARIA BONDS, JT ([id number]), dictionary editor [employer] ([id number]) on 12/20/2023 2:52:39 PM Referred By: Confirmed By:JT LOERA MD
[2023-12-18] MEDS: 0.9% Normal Saline (1000mL) 1,000 ML 125 ML IV (03:16)
[2023-12-18] MEDS: Acetaminophen 325 MG Tablet 650 MG PO ×2 (03:16→20:30)
[2023-12-18 04:00] VITALS: BP 112/91; PULSE 70; RESP 16; TEMP 36.5; O2SAT 99
[2023-12-18] MEDS: Levothyroxine 112 MCG Tablet PO (05:47)
[2023-12-18 06:37] LABS: Absolute Lymphocyte Count 1.95 X10^3/uL (0.83-4.51); Absolute Neutrophil Count 4.5 X10^3/uL (2.0-7.7); Basophil# 0.03 X10^3/uL; Basophil% 0.4 % (0-1); Eosinophils% 1.4 % (0-5); Hematocrit 34.2 % (37-47); Hemoglobin 11.2 g/dL (12.0-15.0); Lymphocyte # 1.95 X10^3/ul (0.83-4.51); Lymphocyte % 27.4 % (19-41); Mean Corp Hgb Conc 32.7 g/dL (32-36); Mean Corpuscular Hgb 28.4 pg (27.0-32.0); Mean Corpuscular Volume 86.8 fL (81-99); Mean Platelet Vol. 11.2 fl (6.2-12.0); Monocyte# 0.52 X10^3/uL; Monocyte% 7.3 % (0-10); NRBC Flagged by Analyzer 0 % (0-5); Neutrophil # 4.49 X10^3/uL (2.7-7.7); Neutrophil % 63.2 % (47-70); Platelet Count 322 K/mm3 (150-450); RBC Distribution Width CV 11.5 % (11.6-14.6); RBC Distribution Width SD 36.5 fl (35.1-43.9); Red Blood Count 3.94 M/mm3 (4.2-5.4); White Blood Count 7.1 K/mm3 (4.4-11.0)
[2023-12-18 06:59] LABS: Anion Gap 8 (5-15); BUN 15 mg/dL (7-18); BUN/Creat Ratio 16.3 RATIO (10-20); Calcium,Total 8.5 mg/dL (8.5-10.1); Chloride 110 mmol/L (98-107); Creatinine, Serum 0.92 mg/dL (0.55-1.02); EST Glomerular Filtration Rate 73 mL/min (>60); Est Glom Filt Rate - Afr Amer 88 mL/min (>60); Estimated Creatinine Clearance 66.86 ml/min; Glucose 86 mg/dL (74-106); Potassium 3.8 mmol/L (3.5-5.1); Sodium Level 140 mmol/L (136-145)
--- NOTE | 2023-12-18 08:13 | PCM.PN.HOSP ---
Reason for Visit Reason for Visit: Diagnoses Dyspnea, unspecified (12/17/23) Chest pain, unspecified (12/17/23) Objective Data Objective Data Vital Signs: Vital Signs Temp Pulse Resp BP Pulse Ox O2 Del Method 97.7 F L 70 16 112/91 H 99 Room Air 12/18/23 04:00 12/18/23 04:00 12/18/23 04:00 12/18/23 04:00 12/18/23 04:00 12/18/23 04:00 Oxygen Delivery Method Room Air Weight: 125 lb 14.143 oz Body Mass Index (BMI) 23.0 Intake & Output: Intake and Output for Last 24 Hours 12/16/23 12/17/23 12/18/23 23:59 23:59 23:59 Intake Total 1000 / 1000 Balance 1000 / 1000 Lab / Micro Data 12/18/23 04:30 12/18/23 04:30 Labs: Laboratory Results - last 24 hr 12/17/23 09:45: WBC 10.4, RBC 4.80, Hgb 13.9, Hct 41.2, MCV 85.8, MCH 29.0, MCHC 33.7, RDW Std Deviation 36.0, RDW Coeff of Jaime 11.4 L, Plt Count 362, MPV 11.2, Immature Gran % (Auto) 0.300, Neut % (Auto) 85.3 H, Lymph % (Auto) 9.8 L, [place] % (Auto) 4.1, Eos % (Auto) 0.2, Baso % (Auto) 0.3, Absolute Neuts (auto) 8.9 H, Absolute Lymphs (auto) 1.02, Nucleated RBC % 0, Sodium 139, Potassium 3.7, Chloride 107, Carbon Dioxide 23.0, Anion Gap 9, BUN 15, Creatinine 1.14 H, Estim Creat Clear Calc 53.96, Est GFR (MDRD) Af Amer 69, Est GFR (MDRD) Non-Af 57 L, BUN/Creatinine Ratio 13.2, Glucose 118 H, Calcium 9.7, Troponin I High Sens 3, B-Natriuretic Peptide 8.6, TSH 1.620 12/17/23 11:45: Troponin I High Sens < 3 L, Lipase 79 H 12/17/23 16:59: D-Dimer Quant (PE/DVT) 0.42 12/18/23 04:30: WBC 7.1, RBC 3.94 L, Hgb 11.2 L, Hct 34.2 L, MCV 86.8, MCH 28.4, MCHC 32.7, RDW Std Deviation 36.5, RDW Coeff of Jaime 11.5 L, Plt Count 322, MPV 11.2, Immature Gran % (Auto) 0.300, Neut % (Auto) 63.2, Lymph % (Auto) 27.4, [place] % (Auto) 7.3, Eos % (Auto) 1.4, Baso % (Auto) 0.4, Absolute Neuts (auto) 4.5, Absolute Lymphs (auto) 1.95, Nucleated RBC % 0, Sodium 140, Potassium 3.8, Chloride 110 H, Carbon Dioxide 22.0, Anion Gap 8, BUN 15, Creatinine 0.92, Estim Creat Clear Calc 66.86, Est GFR (MDRD) Af Amer 88, Est GFR (MDRD) Non-Af 73, BUN/Creatinine Ratio 16.3, Glucose 86, Calcium 8.5 Micro: Microbiology 12/17/23 09:45 Mucosa - Nasopharyngeal SARS-CoV-2, Influenza & RSV (PCR) - Final Radiography Diagnostic Testing: Radiology Impression Chest X-Ray 12/17/23 09:50 IMPRESSION: Hyperinflation. The lungs are clear. Electronically Signed: Pascual Oropeza MD at 10:17 EDT Reading Location ID and State: [facility] / [place] , Service support , Physical Exam Narrative Patient complained that she has constant chest pain ongoing for a year with recent aggravation. It is mainly retrosternal feels like sharp pain but gradually goes away. 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 It happens with water or even Jell-O. It is in the lower chest and feels like gas going up with nausea sensation. Gradually it passes through. No vomiting. She had shortness of breath with chest pain but not with the swallowing issues/dyspnea No associated palpitation or other cardiac symptoms Physical exam General: Alert, Oriented x3, Cooperative HEENT: Atraumatic, PERRLA, EOMI, Normocephalic Oral: No Gingival or Mucosal Lesions/ Ulcerations. No redness, inflammation or swelling in parapharyngeal or retropharyngeal region no tenderness over lateral neck, Neck: Supple, No JVD, Negative Carotid Bruits Chest wall/Lungs: Air entry diminished in bilateral lung bases. No crepitation/rhonchi Cardiovascular: Regular sinus rhythm, Normal S1, Normal S2, No M/G/R Abdomen: Bowel Sounds Present, Soft, Non Tender, Non-Distended : No dysuria. No renal angle tenderness. No suprapubic tenderness. Extremities: No edema, Capillary Refill Less than 3 Seconds Skin: No rashes, No breakdown Musculoskeletal: No Tenderness to Palpation of Joints or Extremities Neurological: Cranial nerves II-XII grossly intact, DTR 2+/4. No acute focal neurological deficit. Psych/Mental Status: Normal Affect, Appropriate. Assessment & Plan Assessment/Plan (1) Dyspnea: (2) Chest pain: PLAN: Plan 38-year-old female admitted with shortness of breath and chest pain ongoing for about a year and gradually worsening. Pain is retrosternal, sharp elevated by movement delivered by rest. Denied prior history of blood clot but DVT history in her father and grandmother. 1. Atypical chest pain/shortness of breath probably related to noncardiac issues: Patient is being admitted in PCU on telemetry. Cardiac telemetry normal sinus rhythm. Had mild tachycardia in ED. I suspect esophageal dysphagia most likely motility issues. Start with speech therapy evaluation. Patient may need Gastrografin esophagram and further evaluation depending upon his speech therapy evaluation. Other differential to consider is subacute/chronic PE as patient's father and grandfather history of PE and cardiac disease. ACS is ruled out with 2 negative troponins and normal EKG with no acute ST-T changes. 2D echo done on 11/12/2023 showed RVSP of 30 mmHg and EF of 65%. Therefore pulmonary hypertension is not the differential. She is experiencing. VQ scan is ordered. CTA chest was negative for acute PE She would likely need a 30-day event monitor upon discharge to evaluate for any underlying arrhythmias that she may have. Her anxiety may also be a contributing factor but she does say that she thinks her anxiety has been fairly well-controlled and she has high functioning. #Hypothyroidism: On Synthroid #Anxiety and depression: Does not seem to be on any medication for this. To follow-up with her PCP for referral to psychiatrist as needed. The anxiety could be contributing to episodic chest pain but this would be a diagnosis of exclusion once any other organic pathology is ruled out. DVT prophylaxis: Lovenox Charges/Coding Visit Charges Inpatient E&M: 52808 Subs Hosp L2
[2023-12-18 10:20] VITALS: BP 114/70; PULSE 73; RESP 12; TEMP 36.8; O2SAT 100
[2023-12-18] MEDS: Pantoprazole Sodium 20 MG Tablet PO ×2 (10:24→20:30)
[2023-12-18 15:11] VITALS: BP 110/72; PULSE 83; RESP 14; TEMP 36.9; O2SAT 100
--- NOTE | 2023-12-18 17:19 | PCM.CONS.C ---
Assessment & Plan Assessment/Plan (1) Non-cardiac chest pain: PLAN: She presents with chest discomfort which is rather atypical and I have suggested to her that this is likely noncardiac. It is sharp, not necessarily related to activity there is no radiation no EKG changes cardiac troponin enzymes are normal and his CT scan and echocardiogram are normal. I also dissuaded her of the idea that she has pulmonary hypertension. I did supply her with appropriate literature with a definition of pulmonary hypertension. At this time I suggested to her that I do not see a cardiopulmonary etiology for the above and so I have issues may need to be evaluated. I spent 26 minutes discussing the above with her and she had no questions on conclusion of the consult. Will sign off at this time and also assured her that is no reason to fulfill the upcoming appointment in cardiology. Her PCP will follow-up with her. Thank you for allowing me to participate in the care of your patient. Please don't hesitate to call if any issues arise. HPI Consult Data Date of Consult: 12/18/23 HPI Narrative HPI Narrative: YOVANY MANUEL, is a 38 F who presents for evaluation of chest pain and some shortness of breath. She says that she has been having these symptoms for approximately a year now and has been gradually worsening. She went to see her primary care physician who thought it was due to anxiety but due to her symptoms persisting she was referred for an echocardiogram. The echocardiogram demonstrated preserved left ventricular systolic function with an estimated EF at 65% and pulm artery systolic pressure of 30 mmHg. She says that she was told by someone that it was pulmonary hypertension and she was referred to see cardiology. She has had more pain over the last few days she was scribes these as being retrosternal sharp aggravated by movement and sometimes relieved by rest. She says that it is also affected her ability to eat and her appetite has also gone down. She was seen in the emergency room had blood work which demonstrated normal hemoglobin, troponin was normal, natruretic peptide was normal, a CT scan of her chest was negative for PE and her pulmonary arteries were noted to be normal and there was no evidence of malignancy. I also reviewed her echocardiographic findings with her in detail. Her EKG has demonstrated normal sinus rhythm and occasional sinus tachycardia with activity. Cardiology was asked to see this patient for further elucidation of her potential cardiopulmonary process. [facility] Medical History Chronic allergic otitis media, unspecified ear Thyroid disease H/O cardiac murmur Headache, migraine Anxiety and depression Seasonal allergies Home Medications ?Medication ?Instructions ?Recorded ?Last Taken ?Type levothyroxine 112 mcg tablet 112 mcg PO DAILY 11/14/23 12/16/23 22:00 History ondansetron 4 mg disintegrating 4 mg PO Q8H PRN PRN Nausea #10 tabs 11/14/23 Unknown Rx tablet Allergy/AdvReac Type Severity Reaction Status Date / Time No Known Allergies Allergy Verified 12/17/23 09:11 Family History Mother Hypertension Grandfather Hypertension Heart disease Skin cancer Grandmother CVA (cerebral vascular accident) Hypothyroid Father Seizures CVA (cerebral vascular accident) Aunt Breast cancer Heart disease Social History Smoking Status: Never smoker second hand exposure: No alcohol intake: never substance use type: does not use caffeine: Yes frequency: 1-2 times per week seatbelt use: always do you feel safe at home: Yes additional social history: [employer] 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 [employer] Constitutional Constitutional: Denies fever(s) or weight loss Eyes Eyes: Reports systems reviewed and no addt'l complaints, except as documented ENT HEENT: Reports systems reviewed and no addt'l complaints, except as documented Cardiovascular Cardiovascular: Reports chest pain at rest, chest pain with activity, dyspnea at rest and palpitations; Denies dyspnea on exertion, edema or paroxysmal nocturnal dyspnea Respiratory/Chest Respiratory/Chest: Denies dyspnea on exertion, productive cough, shortness of breath at rest or shortness of breath with exertion Gastrointestinal Gastrointestinal: Denies change in bowel habits, nausea, vomiting or weight changes Genitourinary Genitourinary: Denies difficulty urinating Musculoskeletal Musculoskeletal: Denies joint stiffness or muscle weakness Integumentary Integumentary: Denies lesions Neurologic Neurologic: Denies dizziness or syncope Psychiatric Psychiatric: Reports anxiety Endocrine Endocrinology: Denies excessive sweating or fatigue Hematologic/Lymphatic Hematologic/Lymphatic: Denies anemia Allergic/Immunologic Allergic/Immunologic: Denies seasonal rhinorrhea Physical Exam Const alert, oriented x3 and no apparent distress General Appearance: cooperative HEENT hearing grossly normal bilaterally Head and Scalp: atraumatic Eyes EOMs intact bilaterally Neck General: normal visual inspection Chest inspection of chest normal and palpation of chest normal Resp normal respiratory effort Auscultation: clear to auscultation bilaterally Cardio regular rate, regular rhythm, S1 normal heart sound and S2 normal heart sound Jugular Venous Distention: JVD GI normal to inspection, nondistended, normoactive bowel sounds Extremity normal capillary refill and no pedal edema Peripheral Pulses: Yes pulses 2+ throughout and femoral pulses present Skin no rashes or lesions noted Neuro oriented x3 and CN's II-XII intact bilaterally Psych Appearance: grossly normal and appropriate Risk Stratification Risk Stratification Applicable: No Objective Data Vital Signs: Vital Signs Temp Pulse Resp BP Pulse Ox O2 Del Method 98.5 F 83 14 110/72 100 Room Air 12/18/23 15:11 12/18/23 15:11 12/18/23 15:11 12/18/23 15:11 12/18/23 15:11 12/18/23 15:11 Oxygen Delivery Method Room Air Weight: 125 lb 14.143 oz Body Mass Index (BMI) 23.0 Intake & Output: Intake and Output for Last 24 Hours 12/16/23 12/17/23 12/18/23 23:59 23:59 23:59 Intake Total 2099 / 2099 Balance 2099 / 2099 Lab / Micro Data 12/18/23 04:30 12/18/23 04:30 Labs: Laboratory Results - last 24 hr 12/17/23 16:59: D-Dimer Quant (PE/DVT) 0.42 12/18/23 04:30: WBC 7.1, RBC 3.94 L, Hgb 11.2 L, Hct 34.2 L, MCV 86.8, MCH 28.4, MCHC 32.7, RDW Std Deviation 36.5, RDW Coeff of Jaime 11.5 L, Plt Count 322, MPV 11.2, Immature Gran % (Auto) 0.300, Neut % (Auto) 63.2, Lymph % (Auto) 27.4, Harmon % (Auto) 7.3, Eos % (Auto) 1.4, Baso % (Auto) 0.4, Absolute Neuts (auto) 4.5, Absolute Lymphs (auto) 1.95, Nucleated RBC % 0, Sodium 140, Potassium 3.8, Chloride 110 H, Carbon Dioxide 22.0, Anion Gap 8, BUN 15, Creatinine 0.92, Estim Creat Clear Calc 66.86, Est GFR (MDRD) Af Amer 88, Est GFR (MDRD) Non-Af 73, BUN/Creatinine Ratio 16.3, Glucose 86, Calcium 8.5 Rhythm Strip Rhythm Strip: Sinus Rhythm Cardiology Labs/Tests 12/17/23 16:59: D-Dimer Quant (PE/DVT) 0.42 12/18/23 04:30: WBC 7.1, RBC 3.94 L, Hgb 11.2 L, Hct 34.2 L, MCV 86.8, MCH 28.4, MCHC 32.7, Plt Count 322, MPV 11.2, Immature Gran % (Auto) 0.300, Neut % (Auto) 63.2, Lymph % (Auto) 27.4, Harmon % (Auto) 7.3, Eos % (Auto) 1.4, Baso % (Auto) 0.4, Absolute Neuts (auto) 4.5, Nucleated RBC % 0, Sodium 140, Potassium 3.8, Chloride 110 H, Carbon Dioxide 22.0, Anion Gap 8, BUN 15, Creatinine 0.92, Est GFR (MDRD) Af Amer 88, Est GFR (MDRD) Non-Af 73, BUN/Creatinine Ratio 16.3, Glucose 86, Calcium 8.5 Rhythm: EKG: ECHO: Stress Test: Cardiac Cath: PCI: CT Surgery: Holter monitor: EPS: PPM: CXR: Chest CT Scan: Radiography Diagnostic Testing: Radiology Impression Lung Scan-VQ NM 12/17/23 15:44 IMPRESSION: Low probability for pulmonary embolism. Electronically Signed: Juan Ramon Son MD at 10:36 EDT ,
[2023-12-18 20:30] VITALS: BP 134/83; PULSE 69; RESP 16; TEMP 36.7; O2SAT 100
[2023-12-18] MEDS: 0.9% Saline Lock 10 ML Syringe IV (20:31)
[2023-12-19 03:15] VITALS: BP 123/95; PULSE 85; RESP 16; TEMP 36.7; O2SAT 100
[2023-12-19] MEDS: oxyCODONE 5 MG Tablet PO (03:23)
[2023-12-19] MEDS: 0.9% Saline Lock 10 ML Syringe IV (05:25)
[2023-12-19] MEDS: Levothyroxine 112 MCG Tablet PO (05:25)
[2023-12-19] MEDS: Acetaminophen 325 MG Tablet 650 MG PO (05:25)
[2023-12-19 08:07] VITALS: O2SAT 99
[2023-12-19 09:12] VITALS: BP 119/85; PULSE 80; RESP 12; TEMP 36.4; O2SAT 100
[2023-12-19] MEDS: Pantoprazole Sodium 20 MG Tablet PO (09:16)
[2023-12-19] MEDS: ALPRAZolam 0.25 MG Tablet PO (09:16)
--- NOTE | 2023-12-19 09:33 | DCINST_ITS ---
Discharge Instructions Diet Discharge Diet: No restrictions Activity Discharge Activity: Return to Normal Activity Weight Bearing Status: Weight bearing as tolerated Dressing / Incision Call your doctor if you observe: Fever of 101 or Higher, Coldness, Increased Pain, Numbness or Tingling, Change in Color, Inability to urinate, Inability to have a bowel movement, Shortness of breath, Dizziness, Fainting spells, Swelling in the ankles, Chest pain, Prolonged hiccupping, Increased palpitations (irregular heartbeat) and Calf discomfort Follow Up Care When: IN 2 WEEKS Test Results: Test results from this visit will be discussed in further detail at your follow- up appointment, if applicable. Discharge Plan Admission Admit Date/Time: 12/17/23 15:40 Primary Reason for Your Visit: Sinus tachycardia. Atypical chest pain, non-c ardiopulmonary in etiology Attending Provider: Tera Izaguirre Primary Care Provider: Eileen Cabral Consulting Providers: Maryjo Garrett; Remigio Rubin Discharge Orders/Prescriptions Prescriptions: New alprazolam 0.25 mg Tablet 0.25 mg PO TID PRN (Reason: ANXIETY) 3 Days Qty: 10 0RF Continued levothyroxine 112 mcg tablet 112 mcg PO DAILY Patient Comments: [NO ORIGINAL SIG] ondansetron 4 mg tablet,disintegrating 4 mg PO Q8H PRN PRN (Reason: Nausea) Qty: 10 0RF Other Ambulatory Orders: Cardiac Holter Monitor, 48 Hrs (Routine) Timeframe: 2 Days Facility: [facility] - Location: Cardiovascular Services Ordered By: Dr. Tera Izaguirre Referrals / Follow Up: Eileen Cabral DO [Primary Care Provider] - Within 2 Weeks Noel Morrison DO [Med Staff - Clinical Haematologist] - Within 1 Month (Anxiety with panic attack. ADHD takes methylphenidate as needed) Disposition Disposition (needs filled in before D/C Order can be placed): Home, Self Care
--- NOTE | 2023-12-19 09:47 | DS.PCM_ITS ---
Providers Date of Admission: 12/17/23 Date of Discharge: 12/19/23 Primary Care Physician: Dr. Eileen Cabral, Consultations 12/18/23 14:39 Consult: Cardiology Routine Consulting Provider: Remigio Rubin Reason for Consult: Chest pain for about 1 year. Undiagnosed chest pain. EMERGENT Consult: No Notified: Yes Date Notified: 12/18/23 Time Notified: 14:40 Method of Notification: Text 12/18/23 14:41 Consult: Gastroenterology Routine Consulting Provider: [facility] Reason for Consult: dysphagia since 4-5 days, intermittent chest pain. EMERGENT Consult: No Notified: Yes Date Notified: 12/18/23 Time Notified: 14:41 Method of Notification: Verbal Reason For Visit: CHEST PAIN Diagnosis Discharge Diagnosis (1) Non-cardiac chest pain: Status: Acute Code(s): R07.89 - Other chest pain Plan 38-year-old female admitted with shortness of breath and chest pain ongoing for about a year and gradually worsening. Pain is retrosternal, sharp elevated by movement delivered by rest. Denied prior history of blood clot but DVT history in her father and grandmother. 1. Atypical chest pain/shortness of breath probably related to noncardiac issues: Patient is being admitted in PCU on telemetry. Cardiac telemetry normal sinus rhythm. Had mild tachycardia in ED. I suspect esophageal dysphagia most likely motility issues. Start with speech therapy evaluation. Patient may need Gastrografin esophagram and further evaluation depending upon his speech therapy evaluation. Other differential to consider is subacute/chronic PE as patient's father and grandfather history of PE and cardiac disease. ACS is ruled out with 2 negative troponins and normal EKG with no acute ST-T changes. * 2D echo done on 11/12/2023 showed RVSP of 30 mmHg and EF of 65%. Therefore pulmonary hypertension is not the differential. She is experiencing. VQ scan is ordered. CTA chest was negative for acute PE * She would likely need a 30-day event monitor upon discharge to evaluate for any underlying arrhythmias that she may have. Her anxiety may also be a contributing factor but she does say that she thinks her anxiety has been fairly well-controlled and she has high functioning. 12/18: Cardiology signed off. Today patient states she does not have issues of dysphagia/odynophagia or food getting stuck. Barium esophagram discontinued as as it will not be done before Wednesday. She wants to go home. Xanax 0.25 mg 3 times daily as needed ordered. While discharging and looking at [facility] report, I came to know that she takes intermittently methylphenidate 15 mg, gets intermittently for the last was 10/26 and then before 03/31/2024. 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 She has ADHD. Or fieldwork or tachycardia may be withdrawal from not taking methylphenidate regularly. She does not have exercise intolerance as she played sports during her high school and college. Her heart rate is still goes in 110s on walking. Unintentional overdose risk score 270. Discharge medication reconciliation done. Discharge follow-up instructions completed. Discharge process discussed with the patient and all questions were answered to patient's satisfaction. Follow with PCP in 1 to 2 weeks Total time spent, exact 35 minutes on discharge meds reconciliation, examination, coordination of care with nurses and ancillary staff, review of imaging and blood test and discussion with the patient on follow-up instructions. Prescription for Xanax 0.25 mg 3 times daily as needed total 10 mg prescribed. Advised to follow with PCP in 2 weeks. Advised to follow with psychiatry Dr. Mrorison in 1 month regarding medication for ADHD. #Hypothyroidism: On Synthroid TSH normal. #Anxiety and depression: * Does not seem to be on any medication for this. * To follow-up with her PCP for referral to psychiatrist as needed. * The anxiety could be contributing to episodic chest pain but this would be a diagnosis of exclusion once any other organic pathology is ruled out. DVT prophylaxis: Lovenox Discharge medication reconciliation done. Discharge follow-up instructions completed. Discharge process discussed with the patient and all questions were answered to patient's satisfaction. Follow with PCP in 1 to 2 weeks Total time spent, exact 35 minutes on discharge meds reconciliation, examination, coordination of care with nurses and ancillary staff, review of imaging and blood test and discussion with the patient on follow-up instructions. Medications at Discharge Home Medications levothyroxine 112 mcg tablet 112 mcg PO DAILY 11/14/23 ondansetron 4 mg disintegrating tablet 4 mg PO Q8H PRN PRN Nausea #10 tabs 11/14/23 alprazolam 0.25 mg tablet 0.25 mg PO TID PRN ANXIETY 3 days #10 tabs 12/19/23 Physical Exam Narrative Heart rate around 48 to 50/min while sleeping. In the morning when she walks her heart rate goes up. She has anxiety symptoms. All tests came negative Physical exam General: Alert, Oriented x3, Cooperative HEENT: Atraumatic, PERRLA, EOMI, Normocephalic Oral: No Gingival or Mucosal Lesions/ Ulcerations. No redness, no inflammation or swelling in parapharyngeal or retropharyngeal region no tenderness over lateral neck, Neck: Supple, No JVD, Negative Carotid Bruits Chest wall/Lungs: Air entry diminished in bilateral lung bases. No crepitation/rhonchi Cardiovascular: Regular sinus rhythm, Normal S1, Normal S2, No M/G/R Abdomen: Bowel Sounds Present, Soft, Non Tender, Non-Distended : No dysuria. No renal angle tenderness. No suprapubic tenderness. Extremities: No edema, Capillary Refill Less than 3 Seconds Skin: No rashes, No breakdown Musculoskeletal: No Tenderness to Palpation of Joints or Extremities Neurological: Cranial nerves II-XII grossly intact, DTR 2+/4. No acute focal neurological deficit. Psych/Mental Status: Normal Affect, Appropriate. Weight / BMI Weight Weight: 125 lb 14.143 oz Body Mass Index (BMI) 23.0 ABG / Lab / Microbiology Data 12/18/23 04:30 12/18/23 04:30 Microbiology: Microbiology 12/17/23 09:45 Mucosa - Nasopharyngeal SARS-CoV-2, Influenza & RSV (PCR) - Final Radiography Diagnostic Testing: Radiology Impression Lung Scan-VQ NM 12/17/23 15:44 IMPRESSION: Low probability for pulmonary embolism. Electronically Signed: Juan Ramon Son MD at 10:36 EDT , D/C Instructions Discharge Diet: No restrictions Weight Bearing Status: Weight bearing as tolerated Call your doctor if you observe: Fever of 101 or Higher, Coldness, Increased Pain, Numbness or Tingling, Change in Color, Inability to urinate, Inability to have a bowel movement, Shortness of breath, Dizziness, Fainting spells, Swelling in the ankles, Chest pain, Prolonged hiccupping, Increased palpitations (irregular heartbeat) and Calf discomfort When: IN 2 WEEKS Meaningful Use Info Meaningful Use Meaningful Use Diagnoses (Choose all that apply): None applicable Ischemic Stroke Statin Dosing Therapy Reference: STATIN DOSE THERAPY REFERENCE: * Patients > 75 years receive moderate or high dose statin therapy. * Patients 75 years or YOUNGER should receive HIGH intensity statin dose unless contraindicated. You will be required to document reason for non-treatment if statin daily dose does not meet guidelines. HIGH DOSE STATIN THERAPY DAILY Atorvastatin > than or = to 40 mg Rosuvastatin > than or = to 20 mg Amlodipine + Atorvastatin > than or = to 2.5/40 mg Ezetimibe + Simvastatin 10/80 mg Simvastatin 80mg Discharge Plan Admission Admit Date/Time: 12/17/23 15:40 Primary Reason for Your Visit: Sinus tachycardia. Atypical chest pain, non- cardiopulmonary in etiology Attending Provider: Tera Izaguirre Primary Care Provider: Eileen Cabral Consulting Providers: Maryjo Garrett; Remigio Rubin Instructions Additional Instructions / Restrictions: She has follow-up appoint with cardiology Dr. Hector Farmer. Discharge Orders/Prescriptions Prescriptions: New alprazolam 0.25 mg Tablet 0.25 mg PO TID PRN (Reason: ANXIETY) 3 Days Qty: 10 0RF Continued levothyroxine 112 mcg tablet 112 mcg PO DAILY Patient Comments: [NO ORIGINAL SIG] ondansetron 4 mg tablet,disintegrating 4 mg PO Q8H PRN PRN (Reason: Nausea) Qty: 10 0RF Other Ambulatory Orders: Cardiac Holter Monitor, 48 Hrs (Routine) Timeframe: 2 Days Facility: [facility] - Location: Cardiovascular Services Ordered By: Dr. Tera Izaguirre Referrals / Follow Up: Eileen Cabral DO [Primary Care Provider] - Within 2 Weeks Noel Morrison DO [Med Staff - Diesel Engine Mechanic Apprentice] - Within 1 Month (Anxiety with panic attack. ADHD takes methylphenidate as needed) Disposition Disposition (needs filled in before D/C Order can be placed): Home, Self Care Charges/Coding Visit Charges Inpatient E&M: 21855 Disch Hosp >30min
[2023-12-19 10:06] LABS: T4 Free Direct 1.26 ng/dL (0.76-1.46)
== END 2023-12-19 09:36 | disposition home or self-care (01) ==
LOC: ED 09:47 → PCU 16:07
PROVIDERS: Admitting Provider Student in an Organized Health Care Education/Training Program; Emergency Provider Emergency Medicine; PCP Family Medicine; Visit Provider Internal Medicine
DX: R07.89 Other chest pain (principal); I27.20 Pulmonary hypertension, unspecified; R13.10 Dysphagia, unspecified; E03.9 Hypothyroidism, unspecified; Z79.890 Hormone replacement therapy; R06.02 Shortness of breath
CPT/HCPCS: 36415; 71046; 78598; 80048; 83690; 83880; 84439; 84443; 84484; 85025; 85379; 87631; 92526; 92610; 93005; 96361; 96374; 99221; 99285; A9540; A9567; J7030; A4216; G0378; J2405

== ENCOUNTER → 2023-12-19 | Outpatient (CLI) | payer OTHER, SELFPAY | END | disposition home or self-care (01) | LOC: CVS 10:42 | PROVIDERS: PCP Family Medicine; Referring Provider Internal Medicine; Visit Provider Internal Medicine | DX: R07.9 Chest pain, unspecified (principal) | CPT/HCPCS: 93225; 93226 ==

== ENCOUNTER → 2023-12-27 | Outpatient (CLI) | payer OTHER, SELFPAY ==
[2023-12-27 15:37] LABS: Amylase 89 U/L (25-115); CRP 8.31 mg/L (0.0-3.0); Lipase 162 U/L (13-75)
[2023-12-27 16:02] LABS: Erythrocyte Sedimentation Rate 2 mm/hr (0-30)
[2024-01-01 08:12] LABS: Anti-Centromere B Ab <0.2 AI (0.0-0.9); Anti-Chromatin <0.2 AI (0.0-0.9); Anti-Jo <0.2 AI (0.0-0.9); Anti-Scleroderma-70 AB <0.2 AI (0.0-0.9); Anti-dsDNA Ab <1 IU/mL (0-9); Beef <0.10 kU/L (Class 0); Chocolate <0.10 kU/L (Class 0); Codfish <0.10 kU/L (Class 0); Corn <0.10 kU/L (Class 0); Egg, Whole <0.10 kU/L (Class 0); Milk (Cow) <0.10 kU/L (Class 0); Mussels <0.10 kU/L (Class 0); Peanut <0.10 kU/L (Class 0); Pork <0.10 kU/L (Class 0); RNP Ab <0.2 AI (0.0-0.9); SJOGREN'S Anti-SS-A test < 0.2 AI (0.0-0.9); SJOGREN'S Anti-SS-B test < 0.2 AI (0.0-0.9); Salmon <0.10 kU/L (Class 0); Shrimp <0.10 kU/L (Class 0); Smith Ab <0.2 AI (0.0-0.9); Soybean <0.10 kU/L (Class 0); Tuna <0.10 kU/L (Class 0); Vitamin D 1,25-Dihydroxy 60.4 pg/mL (24.8-81.5); Wheat <0.10 kU/L (Class 0)
[2024-01-07 13:08] LABS: ALDOSTERONE/RENIN RATIO 2.4 (0.0-30.0); Albumin 3.9 g/dL (2.9-4.4); Aldosterone, Serum 2.9 ng/dL (0.0-30.0); Alpha-1-Globulins 0.2 g/dL (0.0-0.4); Alpha-2-Globulins 0.6 g/dL (0.4-1.0); Angiotensin Convert Enzyme 30 U/L (14-82); Chromogranin A 50.6 ng/mL (0.0-101.8); Cytoplasmic Ab (C-ANCA) <1:20 titer (Neg:<1:20); Dopamine, Pl <30 pg/mL (0-48); Endomysial Antibody IgA Negative (Negative); Epinephrine, Pl <15 pg/mL (0-62); Gastrin, Serum 58 pg/mL (0-115); IgG, Quant 1073 mg/dL (586-1602); Immunoglobulin A 265 mg/dL (87-352); Immunoglobulin E 43 IU/mL (6-495); Immunoglobulin G, Subclass 1 642 mg/dL (248-810); Immunoglobulin G, Subclass 2 224 mg/dL (130-555); Immunoglobulin G, Subclass 3 45 mg/dL (15-102); Immunoglobulin G, Subclass 4 19 mg/dL (2-96); Immunoglobulin M 80 mg/dL (26-217); Norepinephrine, Pl 510 pg/mL (0-874); PROEL- TOTAL PROTEIN 6.7 g/dL (6.0-8.5); Perinuclear Ab (P-ANCA) <1:20 titer (Neg:<1:20); Renin, Plasma 1.184 ng/mL/hr (0.167-5.380); t-Transglutaminase IgA <2 U/mL (0-3)
== END | disposition home or self-care (01) ==
LOC: LAB 14:27
PROVIDERS: PCP Family Medicine; Referring Provider Internal Medicine Gastroenterology; Visit Provider Internal Medicine Gastroenterology
DX: R10.9 Unspecified abdominal pain (principal)
CPT/HCPCS: 36415; 82088; 82150; 82164; 82384; 82533; 82652; 82784; 82785; 82787; 82941; 83516; 83690; 84165; 84244; 85652; 86003; 86005; 86140; 86225; 86235; 86255; 86256; 86316; 86334

== ENCOUNTER → 2024-01-05 | Outpatient (CLI) | payer OTHER, SELFPAY | END | disposition home or self-care (01) | LOC: SL 19:25 | PROVIDERS: PCP Family Medicine; Referring Provider Family Medicine; Visit Provider Family Medicine | DX: G47.30 Sleep apnea, unspecified (principal) | CPT/HCPCS: 95810 ==

== ENCOUNTER → 2024-01-20 | Outpatient (CLI) | payer OTHER, SELFPAY ==
--- NOTE | 2024-01-20 12:48 | NM_ITS ---
CLINICAL: 38-year-old female with history of abdominal pain. SEMI-SOLID PHASE 99m Tc SULFUR COLLOID GASTRIC EMPTYING STUDY COMPARISON: None available FINDINGS: The patient was administered 1.1 mCi of 99m Tc sulfur colloid mixed with oatmeal and consumed per os. Image acquisitions in the anterior-posterior projections were obtained for 60 minutes. There is prompt visualization of the stomach. There is no gastroesophageal reflux identified. The T ? raw data emptying was calculated to be 48.89 minutes, (Normal: 12-56 minutes). NM/Gastric Emptying Study IMPRESSION: 1. NORMAL 99m Tc sulfur colloid semi-solid phase (oatmeal) gastric emptying imaging examination. A. There is normal and preserved semi-solid phase gastric emptying compared to normal controls. (Kane et al, J Nucl Med Tech 38: 186, 2010). Electronically Signed: Antione Gerard DO at 18:42 EDT ,
[2024-01-20 15:16] LABS: Lipase 115 U/L (13-75)
[2024-01-24 16:09] LABS: ASO Titer 313.4 IU/mL (0.0-200.0)
== END | disposition home or self-care (01) ==
PROVIDERS: PCP Family Medicine; Referring Provider Internal Medicine Gastroenterology; Visit Provider Internal Medicine Gastroenterology
DX: R10.9 Unspecified abdominal pain (principal)
CPT/HCPCS: 36415; 78264; 83690; 86060; A9541

== ENCOUNTER 2024-01-27 05:31 | Day surgery (SDC) | payer OTHER, SELFPAY ==
[2024-01-27] VITALS (7 sets, daily range): BP systolic 99–133; BP diastolic 66–87; PULSE 66–92; RESP 16; TEMP 36.1–36.8; O2SAT 98–100; BMI 22.9
[2024-01-27 06:25] LABS: Internal QC Validated? YES +Cl - CLEAR BKGD; Pregnancy, Urine Negative Negative
--- NOTE | 2024-01-27 06:30 | IMM_PTH ---
PATIENT: YOVANY MANUEL LOC: EN U#:[id number] AGE/SX: 38/F ROOM: RE01/27/[address]: Dr. Cash Barker DO : 1985 BED: DIS: 01/27/2024 SPEC #: [id number] RECD: 01/27/24 09:55 STATUS: SHAW REQ #: [id number] PRIYA: 01/27/24 06:[address]: Cash Barker DEPT: IMMUNOHISTOCHEMISTRY RECD BY: Richard Bass ENTERED: 01/27/24 09:56 SP TYPE: IMMUNO OTHR DR: Dr. Eileen Cabral DO Tissues: B - Gastric mucous membrane Procedures: H Pylori (initial) PHYSICIAN & INSTITUTION [place] [address] SPECIMEN INFORMATION: Tissue Source: B- Gastric antrum biopsy Clinical Info: Abdominal pain Specimen Number: [id number] CPT code: 97059 METHODOLOGY: Deparaffinized sections of prefer/formalin-fixed tissue or PAP/DQ stained slides are incubated with monoclonal/polyclonal antibodies/oligonucleotide probes. Localization is made via biotin free immunoperoxidase method. Appropriate controls are performed and reacted as expected. Results on target cell population are indicated in the following table: RESULTS: ANTIBODY / CLONE RESULT Block B H Pylori (polyclonal) negative These tests were developed and their performance characteristics determined by [facility]. They may not have been cleared or approved by the U.S. Food and Drug Administration. The FDA has determined that such clearance or approval is not necessary. The above immunohistochemical/dualISH markers are ordered and reviewed by the Pathologist. INTERPRETATION: B. Gastric antrum, biopsy: Negative for Helicobacter pylori organisms. 01/31/2024
--- NOTE | 2024-01-27 06:30 | EGD_PTH ---
PATIENT: YOVANY MANUEL LOC: EN U#:[id number] AGE/SX: 38/F ROOM: RE01/27/[address]: Dr. Cash Barker DO : 1985 BED: DIS: 01/27/2024 SPEC #: [id number] RECD: 01/27/24 08:53 STATUS: SHAW REN #: [id number] PRIYA: 01/27/24 06:[address]: Cash Barker DEPT: SURGICAL PATHOLOGY RECD BY: Joseph Ramirez ENTERED: 01/27/24 10:01 SP TYPE: EGD BIOPSY HUDSON DR: Dr. Eileen Cabral DO Tissues: A - Duodenum, NOS B - Gastric mucous membrane C - Esophagus, NOS Procedures: Surgery Specimen Level IV HEADER OPERATION: EGD with biopsy PRE-OP DIAGNOSIS: Abdominal pain TISSUE SUBMITTED: A- Duodenum biopsy, B- Gastric antrum biopsy, C- Random esophagus biopsy MICROSCOPIC DIAGNOSIS A. Duodenum, biopsy: No pathologic change. B. Gastric antrum, biopsy: Chronic gastritis. See comment. C. Esophagus, random biopsy: No pathologic change. No evidence of inflammation. Rare fragments of glandular mucosa. AMJadyn 01/28/2024 COMMENT B. The results of immunohistochemistry for Helicobacter pylori will be reported separately ([id number]). MICROSCOPIC DESCRIPTION Slides are reviewed. GROSS DESCRIPTION A. Received in fixative is one container labeled with the patient's name and designated Duodenum biopsy. The specimen consists of two irregular fragments of light pena soft tissue that in aggregate measure 0.6 x 0.3 x 0.1 cm. The specimen is totally submitted in one cassette. B. Received in fixative is one container labeled with the patient's name and designated Gastric antrum biopsy. The specimen consists of two irregular fragments of light pena soft tissue that in aggregate measure 0.6 x 0.4 x 0.1 cm. The specimen is totally submitted in one cassette. C. Received in fixative is one container labeled with the patient's name and designated Random esophagus biopsy. The specimen consists of multiple irregular fragments of light pena soft tissue that in aggregate measure 0.8 x 0.3 x 0.1 cm. The specimen is totally submitted in one cassette. 01/27/2024 TC:3 CPT:68578a2
--- NOTE | 2024-01-27 06:36 | HP.PCM_ITS ---
History and Physical Date of Admission: 01/27/24 38 F who presents to the office today for hospital follow up. *BGI established 9. pt reports that she was referred to GI following her ER visit 12.17.23 due to inability to eat. Pt reports these symptoms began before ER visit, but have worsened. Pt reports that when she eats she feels nauseated, dizzy, and a squeezing in her epigastric area. Pt reports a long hx of HB, but has been taking OTC omeprazole which has been helpful. She presented to the ED on 12/17/2023 with a complaint of shortness of breath and chest pain. 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 She says her symptoms have been going on for about a year now have been gradually worsening. She was told by her PCP that it was due to anxiety and she was managed for this. However his symptoms persisted so she was referred for 2D echo. She says she was told that she had pulmonary hypertension per the 2D echo and so she has been referred to see cardiology. However her pain intensified over the last few days. Pain was retrosternal and sharp, aggravated by movement and relieved by rest. This was seen with her shortness of breath. She denied any history of blood clots though she said she had a strong history of blood clots in her family with namely her father and her grandmother having blood clots. She denies any long distance travel recently. She was seen in the ED on 12/13/2023 for the symptoms and had a CT of the chest which was negative for any evidence of PE. The chest pain is not reproducible with palpation. She did have a 2D echo done on 11/12/2023 which showed RVSP of 30 mmHg and it is on this basis that she says she was told that she has pulmonary hypertension. Vitals in the ED were temperature of 97.9, heart rate of 77 and blood pressure 129/86. According to the ED doctor her heart rate went up to the 150s when she got up to ambulate. Respiratory rate was 18 and she was saturating at 99% on room air. CBC was unremarkable and BMP was significant for creatinine of 1.14. Initial troponin was less than 3 and BNP was 8.6. TSH was 1.62. Chest x-ray showed no acute cardiopulmonary pathology. CTA was not done as she had just had a CTA 4 days ago. She has been admitted to be managed for chest pain and shortness of breath with ambulatory tachycardia of unknown etiology. She was seen by cardiology for possible cardiac issue causing her symptoms and she underwent testing and was determined not to have a cardiac etiology of her symptoms. She Presented today for further evaluation. She complains of bloating and fullness when she eats. It does not matter what type of food she eats she gets the symptoms. She does have a past medical history of hypothyroidism and takes levothyroxine on a daily basis.. ROS Const Constitutional: Positive for fatigue and headache(s); No fever(s) or weight change ENT ENT: Positive for headache(s); No difficulty swallowing Gastro GI: Positive for abdominal pain, bloating, heartburn, excessive flatus and nausea/dyspepsia; No belching, change in bowel habits, change in stool character, coffee ground emesis, constipation, cramping, diarrhea, difficulty swallowing, feeling full early, incontinent of stools, Vomiting blood/hematemesis, Blood in stool, loose stools, Black,tarry stools, pain with swallowing, vomiting or other Musc Musculoskeletal: Positive for numbness and tingling; No joint pain Skin Skin: No yellowing of the eye or itchy eyes Neuro Neurology: Positive for headache(s), numbness and tingling Psych Psychiatric: Positive for anxiety and No depression Endo Endocrine: Positive for fatigue; No weight change Aller/Imm Allergy/Immunologic: No itchy eyes Marshal/Lymp Hematologic/Lymphatic: No easy bleeding or easy bruising Exam Const General: cooperative, healthy appearing and no acute distress Nutritional Appearance: average body habitus Orientation: alert, awake and oriented x3 [facility] Head: normal to inspection Ears: hearing grossly normal bilaterally, external ears normal, TM's normal bilaterally and EAC's normal Nose: external nose normal, nares normal, septum normal and no nasal discharge Face and sinus: normal facial exam, sinuses nontender and face symmetric Mouth: oral mucosae normal, lip normal, tongue normal and oropharynx normal Throat: posterior oropharynx normal, tonsils normal, uvula midline and no postnasal drainage Eyes General: appearance normal, both eyes and all related structures Neck Neck: normal visual inspection, full ROM, no lymphadenopathy, no meningeal signs and supple Neck mass: No Thyroid: thyroid normal Lymphatic: no lymphadenopathy noted Chest Chest palpation & inspection: normal inspection of the chest Resp Effort & Inspection: normal respiratory effort and able to speak in complete sentences Auscultation: Bilateral: Clear to Auscultation Cardio Palpation: normal PMI Rate: regular rate Rhythm: regular rhythm Heart Sounds: S1 normal, S2 normal, no gallops, no murmurs and no rubs Pulses: radial pulses present GI Inspection: normal to inspection Skin General: no rashes or lesions noted Neuro General: patient alert, patient awake and patient oriented x3 Cognition: normal cognition Speech: speech normal Psych Appearance: grossly normal Mental Status: mental status grossly normal Mood: congruent mood Affect: normal affect Speech and Movement: speech and movement normal Attitude: cooperative Thought Process: normal Thought Content: normal Judgment: judgment good Assessment and Plan Assessment and Plan (1) Abdominal pain: Status: Acute Plan: Differential diagnosis for abdominal pain does include lower esophageal spasm, gastroparesis, irritable bowel syndrome, refractory gastroesophageal reflux disease, crest syndrome, atypical gastroesophageal reflux disease. She will undergo possible esophageal manometry testing along with gastric emptying study. She will undergo an upper endoscopy for evaluation of her upper GI tract and also blood work today. She was explained alternatives, risk, benefits include not withstanding bleeding, infection, sepsis, perforation, need for emergent surgery . She will have an ASA of 3. Orders: Orders ANCA Today R10.9 - Unspecified abdominal pain Angiotensin Convert Enzyme Today R10.9 - Unspecified abdominal pain Celiac Disease Profile Today R10.9 - Unspecified abdominal pain CRP Today R10.9 - Unspecified abdominal pain Erythrocyte Sed Rate Today R10.9 - Unspecified abdominal pain Immunoglobulins G/A/M/E Today R10.9 - Unspecified abdominal pain DAVIAN + Protein Elect, Serum Today R10.9 - Unspecified abdominal pain IgG Subclasses Today R10.9 - Unspecified abdominal pain Allergen, Food Profile 14 Today R10.9 - Unspecified abdominal pain ORA Comprehensive Panel Today R10.9 - Unspecified abdominal pain Amylase Today R10.9 - Unspecified abdominal pain Lipase Today R10.9 - Unspecified abdominal pain Vitamin D 1,25-Dihydroxy Today R10.9 - Unspecified abdominal pain Gastric Emptying Study Today R10.9 - Unspecified abdominal pain CORTISOL SERUM Today R10.9 - Unspecified abdominal pain Renin/Aldosterone Activity Today R10.9 - Unspecified abdominal pain Gastrin, Serum Today R10.9 - Unspecified abdominal pain Catecholamines, Plasma Today R10.9 - Unspecified abdominal pain Chromogranin A Today R10.9 - Unspecified abdominal pain I have examined the patient and the H&P has been reviewed. There are no clinical changes since date of exam.
--- NOTE | 2024-01-27 06:39 | PRE.ANES_ITS ---
ASA Classification* ASA Classification ASA Classification: 3 Assessment & Plan Anesthesia* Anesthesia Assessment Anesthesia Assessment: Discussed sedation and/or anesthesia options, risks, benefits, and alternatives with patient/parents/legal guardian/POA. Questions invited. The patient/parents/legal guardian/POA seems to understand and agrees to proceed with anesthesia plan. Reviewed the physical assessment, medical history, allergy history and patient home medications list prior to surgery/procedure/anesthetic and documented any changes. Performed airway and anesthesia risk assessments. Anesthesia Type Anesthesia Type: MAC History Source History Obtained from:: Patient and Chart Anesthesia Focused Assessment* Temperature: 98.3 F Pulse Rate: 66 Blood Pressure: 133/87 Respiratory Rate: 16 Pulse Ox: 100 Airway Assessment Mouth opens: >3 cm Mallampati Score: II Teeth Condition: Intact Neck Range of motion (ROM): Full ROM Focused Labs Anesthesia Preop lab: CBC WBC 7.1 K/mm3 (4.4-11.0) 12/18/23 04:30 RBC 3.94 M/mm3 (4.2-5.4) L 12/18/23 04:30 Hgb 11.2 g/dL (12.0-15.0) L 12/18/23 04:30 Hct 34.2 % (37-47) L 12/18/23 04:30 Plt Count 322 K/mm3 (150-450) 12/18/23 04:30 CHEMISTRY Potassium 3.8 mmol/L (3.5-5.1) 12/18/23 04:30 Sodium 140 mmol/L (136-145) 12/18/23 04:30 Magnesium 1.5 mg/dL (1.6-2.6) L 07/27/19 11:34 Phosphorus 3.3 mg/dL (2.5-4.9) 10/25/23 14:20 BUN 15 mg/dL (7-18) 12/18/23 04:30 Creatinine 0.92 mg/dL (0.55-1.02) 12/18/23 04:30 Glucose 86 mg/dL (74-106) 12/18/23 04:30 TSH 1.620 uIU/mL (0.358-3.740) 12/17/23 09:45 COAG PT 13.0 SECONDS (11.7-14.9) 04/13/21 15:55 HCG, Quant 76372 mIU/mL (<9 non-preg) H 04/24/13 10:39 Urine Test Negative Negative 01/27/24 05:40 Pre-Assessment Diagnosis/Proposed Procedure Planned Operative Procedure(s): EGD Anesthesia History 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 When Was Last Pacemaker Check QUESTION #4 FULL TEXT: You/Your Family Experience fever (hyperthermia) with Anesthesia Last Oral Intake Last Oral intake: Last Oral Intake NPO since 23:30 01/27/24 05:59 Meds taken in AM with sips of No 01/27/24 05:59 water? 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 Female Yes 01/25/24 12:04 HX of Motion Sickness No 01/25/24 12:04 HX of N/V After Surgery No 01/25/24 12:04 Non-Smoker Yes 01/25/24 12:04 Duration of Surgery greater No 01/25/24 12:04 than 60 minutes Number of Risk Factors 2 01/25/24 12:04 PONV Score Moderate Risk 01/25/24 12:04 Height & Weight Height & Weight: Anesthesia: Height & Weight Height 5 ft 2 in 01/27/24 05:59 Weight: 57 kg 01/27/24 05:59 Body Mass Index (BMI) 22.9 01/27/24 05:59 Respiratory Assessment Respiratory Assessment - 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 Has anyone observed you stop No 01/25/24 12:04 breathing during sleep? STOP Results Negative 01/25/24 12:04 QUESTION #5 FULL TEXT : Do you snore loudly (louder than talking or can be heard through closed doors)? 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 Specify any problems Hx of Preganancy in last 3 No 01/25/24 12:04 Months Nurse Filling Out Transfusion VCHRISTIN 01/25/24 12:04 & Questions: Date: 01/25/24 01/25/24 12:04 Time: 12:05 01/25/24 12:04 Patient unable to answer at this time (ie. 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 cable equipment Hx Now No 01/25/24 12:04 Gestational Age (in weeks): EDC: Hx Hx Para Hx Section SAB No 01/25/24 12:04 PFS Medical History Wears contact lenses Wears glasses Depression Anxiety Migraine headache Syncope Gastric reflux Non-smoker Shortness of breath on exertion Chronic cough History of Holter monitoring History of echocardiogram Cardiology follow-up encounter Chest pain Non-cardiac chest pain Symptomatic tachycardia Chronic allergic otitis media, unspecified ear Thyroid disease H/O cardiac murmur Headache, migraine Anxiety and depression Seasonal allergies Home Medications ?Medication ?Instructions ?Recorded ?Last Taken ?Type levothyroxine 112 mcg tablet 112 mcg PO DAILY 11/14/23 12/16/23 22:00 History ondansetron 4 mg disintegrating 4 mg PO Q8H PRN PRN Nausea #10 tabs 11/14/23 Unknown Rx tablet propranolol 10 mg tablet 10 mg PO DAILY 12/27/23 01/26/24 12:00 History Allergy/AdvReac Type Severity Reaction Status Date / Time No Known Allergies Allergy Verified 01/27/24 05:58 Family History Mother Hypertension Grandfather Hypertension Heart disease Skin cancer Grandmother CVA (cerebral vascular accident) Hypothyroid Father Seizures CVA (cerebral vascular accident) Aunt Breast cancer Heart disease Surgical History Hx of wisdom tooth extraction Social History Smoking Status: Never smoker second hand exposure: No alcohol intake: never substance use type: does not use caffeine: Yes frequency: 1-2 times per week seatbelt use: always do you feel safe at home: Yes additional social history: Jayden Sorto 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
--- NOTE | 2024-01-27 07:12 | PCM.POST.ANE ---
Anesthesia: Postop Eval I Current Vital Signs Temperature: 97.5 F Pulse Rate: 86 Blood Pressure: 99/66 Respiratory Rate: 16 Pulse Ox: 99 Oxygen Delivery Method: Room Air Assessment Airway patent: Yes Spontaneous unlabored respirations: Yes Mental status: Awake and Calm nausea: No Vomiting: No Anesthesia Complication: No Fluid Hydration Crystalloid volume administer (ml): 30 Total IV fluid infused: 30 Progress Note Anesthesia document: Postop Eval 1 completed: Yes
--- NOTE | 2024-01-27 07:35 | PCM.POSTANE2 ---
Anesthesia Postop Eval I Sum Postop Eval Completion status Anesthesia document: Postop Eval 1 completed: Yes Anesthesia Postop Eval I Summary Anesthesia Postop Eval I Summary: Anesthesia Postop Eval I: Assessment Summary Airway patent Yes 01/27/24 07:13 [email or web address] Spontaneous unlabored Yes 01/27/24 07:13 [email or web address] respirations Mental status Awake,Calm 01/27/24 07:13 [email or web address] nausea No 01/27/24 07:13 [email or web address] Vomiting No 01/27/24 07:13 [email or web address] Anesthesia Postop Eval I: Fluid Summary Crystalloid volume administer 30 01/27/24 07:13 [email or web address] (ml) Colloids volume administered ( ml) Blood Product volume administered (ml) Total IV fluid infused 30 01/27/24 07:13 [email or web address] Anesthesia Postop Eval I: Summary Notes Anesthesia Complication No 01/27/24 07:13 [email or web address] Anesthesia Complication Comment: Post-operative progress note Anesthesia: Postop Eval II Evaluation Mental status: Awake Pain Level: 0 nausea: No Vomiting: No
--- NOTE | 2024-01-31 15:26 | OP.EGD_ITS ---
Patient Name: Apurva Savage Procedure Date: 01/27/2024 6:13 AM Date of : 1985 Age: 38 Procedure: Upper GI endoscopy Indications: Suspected esophageal reflux Providers: Cash Barker DO Referring MD: Cash Barker DO Medicines: Monitored Anesthesia Care Patient Profile: This is a 38 year old female. Refer to note in patient chart for documentation of history and physical. Patient has symptoms of chronic abdominal distention and chronic epigastric abdominal pain. Complications: No immediate complications. Procedure: Pre-Anesthesia Assessment: - Prior to the procedure, a History and Physical was performed, and patient medications and allergies were reviewed. The patient is competent. The risks and benefits of the procedure and the sedation options and risks were discussed with the patient. All questions were answered and informed consent was obtained. Patient identification and proposed procedure were verified by the physician in the pre-procedure area. Mental Status Examination: alert and oriented. Airway Examination: normal oropharyngeal airway and neck mobility. Respiratory Examination: clear to auscultation. CV Examination: normal. Prophylactic Antibiotics: The patient does not require prophylactic antibiotics. Prior Anticoagulants: The patient has taken no anticoagulant or antiplatelet agents except for NSAID medication. ASA Grade Assessment: II - A patient with mild systemic disease. After reviewing the risks and benefits, the patient was deemed in satisfactory condition to undergo the procedure. The anesthesia plan was to use monitored anesthesia care (MAC). Immediately prior to administration of medications, the patient was re-assessed for adequacy to receive sedatives. The heart rate, respiratory rate, oxygen saturations, blood pressure, adequacy of pulmonary ventilation, and response to care were monitored throughout the procedure. The physical status of the patient was re-assessed after the procedure. After obtaining informed consent, the endoscope was passed under direct vision. Throughout the procedure, the patient's blood pressure, pulse, and oxygen saturations were monitored continuously. The Endoscope was introduced through the mouth, and advanced to the second part of duodenum. The upper GI endoscopy was accomplished without difficulty. The patient tolerated the procedure well. Scope In: 6:52:51 AM Scope Out: 6:58:08 AM Total Procedure Duration Time 0 hours 5 minutes 17 seconds Findings: The examined esophagus was normal. Biopsies were taken with a cold forceps for histology. Verification of patient identification for the specimen was done. Estimated blood loss was minimal. Patchy mildly erythematous mucosa without bleeding was found in the gastric antrum. Biopsies were taken with a cold forceps for histology. Verification of patient identification for the specimen was done. Estimated blood loss was minimal. Biopsies were taken with a cold forceps for Helicobacter pylori testing. Verification of patient identification for the specimen was done. Estimated blood loss was minimal. Localized mild inflammation characterized by erosions and erythema was found in the second portion of the duodenum. Biopsies were taken with a cold forceps for histology. Verification of patient identification for the specimen was done. Estimated blood loss was minimal. Impression: - Normal esophagus. Biopsied. - Erythematous mucosa in the antrum. Biopsied. - Chronic duodenitis. Biopsied. Recommendation: - Discharge patient to home. - Resume previous diet. - Continue present medications. - Await pathology results. - MRCP for possible pancreatic divisum Procedure Code(s): --- Professional --- 24617, Esophagogastroduodenoscopy, flexible, transoral; with biopsy, single or multiple CPT copyright 2021 [employer]. All rights reserved. The codes documented in this report are preliminary and upon legal project manager review may be revised to meet current compliance requirements. Cash Barker DO 01/27/2024 7:06:29 AM This report has been signed electronically. Number of Addenda: 0 Note Initiated On: 01/27/2024 6:13 AM
--- NOTE | 2024-01-31 15:26 | OP.CCLET_ITS ---
01/27/2024 Eileen Cabral [address] [facility] [place] [address] Re : Upper GI endoscopy procedure for Apurvadenise Savage Dear Dr. Cabral This procedure was performed on January. My impressions and recommendations are as follows: Impressions : - Normal esophagus. Biopsied. - Erythematous mucosa in the antrum. Biopsied. - Chronic duodenitis. Biopsied. Recommendations : - Discharge patient to home. - Resume previous diet. - Continue present medications. - Await pathology results. - MRCP for possible pancreatic divisum My findings are described in the full procedure note, which is enclosed. If I can be of further assistance, please feel free to contact me at . Sincerely, Cash Barker, 01/27/2024 7:06:29 AM This report has been signed electronically.
== END 2024-01-27 09:06 | disposition home or self-care (01) ==
LOC: EN 05:31 → AC 05:32
PROVIDERS: Anesthesiology; PCP Family Medicine; Referring Provider Family Medicine; Visit Provider Internal Medicine Gastroenterology
PROC: 0DJ08ZZ Inspection of Upper Intestinal Tract, Via Natural or Artificial Opening Endoscopic (ICD-10-PCS; CPT 43235; principal; 2024-01-27 06:25)
DX: K29.80 Duodenitis without bleeding (principal); K29.50 Unspecified chronic gastritis without bleeding; E03.9 Hypothyroidism, unspecified; Z79.890 Hormone replacement therapy; Z79.899 Other long term (current) drug therapy
CPT/HCPCS: 43239; 81025; 88305; 88342; A4216; J2405

== ENCOUNTER 2024-02-01 06:29 | Outpatient (CLI) | payer OTHER, SELFPAY ==
--- NOTE | 2024-02-01 06:41 | MRI_ITS ---
EXAM: MR ABDOMEN WITHOUT INTRAVENOUS CONTRAST, MRCP PROTOCOL CLINICAL INDICATION: pancreatitis and pancreatic divisum, EPIGASTRIC PAIN TECHNIQUE: Multiplanar and multisequence MR images of the abdomen without intravenous contrast obtained with MRCP sequence. Three-dimensional post-processing reconstructions were performed. COMPARISON: No relevant prior studies available. FINDINGS: LOWER THORAX: Normal. No pleural effusion. LIVER: Normal. Normal morphology. GALLBLADDER AND BILE DUCTS: Normal. No gallstones. No gallbladder distention or wall edema. No intra- or extrahepatic biliary ductal dilation. No choledochal filling defect. PANCREAS: Main pancreatic duct does extend to the minor papilla consistent with pancreas divisum. Pancreas is otherwise unremarkable in appearance. No evidence of acute pancreatitis. No focal cystic mass. SPLEEN: Normal. Non-enlarged. ADRENALS: Normal. No nodules. KIDNEYS AND URETERS: Normal. Normal renal size and position. No hydronephrosis. INTRAPERITONEAL SPACE: Normal. No ascites or other fluid collection. VASCULATURE: Normal. Abdominal aorta is non-dilated. LYMPH NODES: No enlarged lymph nodes. MRI/MRCP Abdomen without Contrast IMPRESSION: 1. No acute abdominal abnormality. 2. Pancreas divisum. Electronically Signed: Kvng Zaman MD at 16:21 EDT ,
== END 2024-02-01 23:59 | disposition home or self-care (01) ==
LOC: MRI 06:30
PROVIDERS: PCP Family Medicine; Referring Provider Internal Medicine Gastroenterology; Visit Provider Internal Medicine Gastroenterology
DX: K85.90 Acute pancreatitis without necrosis or infection, unspecified (principal); Q45.3 Other congenital malformations of pancreas and pancreatic duct; R74.8 Abnormal levels of other serum enzymes; R10.13 Epigastric pain
CPT/HCPCS: 74181

== ENCOUNTER → 2024-02-10 | Outpatient (CLI) | payer OTHER, SELFPAY ==
--- NOTE | 2024-02-10 05:30 | CT_ITS ---
STUDY: CT ABDOMEN AND PELVIS WITH CONTRAST REASON FOR EXAM: Female, 38 years old. Recent diagnosis of pancreatitis. Nausea and epigastric pain. RADIATION DOSAGE (If Supplied By Facility): CTDIvol = ( 10.58 ) mGy, DLP = ( 361.40 ) mGycm TECHNIQUE: Transaxial images were obtained from the dome of the diaphragm to the symphysis pubis with oral contrast. Oral and amp; IV Gastrografin and amp; 100mL Isovue-370 was administered. Sagittal and coronal images were reconstructed. Individualized dose optimization techniques were used for this CT. COMPARISON: None. FINDINGS: The visualized lung bases are unremarkable. The visualized portions of the heart are within normal limits. Normal liver. Normal gallbladder and extrahepatic biliary system. Normal spleen. Normal pancreas. Normal bilateral adrenal glands. Normal right kidney. Normal left kidney. There is a small hiatal hernia. Normal small intestine. Normal colon. The appendix is visualized and appears normal. Normal abdominal aorta. Normal inferior vena cava. Normal retroperitoneum. Normal urinary bladder. Follicles are seen in both ovaries. Normal abdominal wall. Normal osseous structures. CT/Abdomen/Pelvis WITH Contrast IMPRESSION: Normal enhanced CT of the abdomen and pelvis. Electronically Signed: Pascual Oropeza MD at 10:13 EDT ,
== END | disposition home or self-care (01) ==
PROVIDERS: PCP Family Medicine; Referring Provider Family Medicine; Visit Provider Family Medicine
DX: R10.9 Unspecified abdominal pain (principal); R11.2 Nausea with vomiting, unspecified
CPT/HCPCS: 74177; Q9967; A4216

== ENCOUNTER → 2024-04-13 | Outpatient (CLI) | payer OTHER, SELFPAY ==
[2024-04-13 15:16] LABS: Absolute Lymphocyte Count 1.69 X10^3/uL (0.83-4.51); Absolute Neutrophil Count 4.5 X10^3/uL (2.0-7.7); Basophil# 0.03 X10^3/uL; Basophil% 0.4 % (0-1); Eosinophil# 0.18 X10^3/uL; Eosinophils% 2.6 % (0-5); Hematocrit 37.1 % (37-47); Hemoglobin 12.4 g/dL (12.0-15.0); Lymphocyte # 1.69 X10^3/ul (0.83-4.51); Lymphocyte % 24.5 % (19-41); Mean Corp Hgb Conc 33.4 g/dL (32-36); Mean Corpuscular Hgb 28.7 pg (27.0-32.0); Mean Corpuscular Volume 85.9 fL (81-99); Monocyte# 0.49 X10^3/uL; Monocyte% 7.1 % (0-10); NRBC Flagged by Analyzer 0 % (0-5); Neutrophil # 4.47 X10^3/uL (2.7-7.7); Platelet Count 343 K/mm3 (150-450); RBC Distribution Width CV 11.7 % (11.6-14.6); RBC Distribution Width SD 36.7 fl (35.1-43.9); Red Blood Count 4.32 M/mm3 (4.2-5.4); White Blood Count 6.9 K/mm3 (4.4-11.0)
[2024-04-13 16:04] LABS: Lipase 160 U/L (13-75)
== END | disposition home or self-care (01) ==
LOC: LAB 14:06
PROVIDERS: PCP Family Medicine; Referring Provider Student in an Organized Health Care Education/Training Program; Visit Provider Student in an Organized Health Care Education/Training Program
DX: K62.5 Hemorrhage of anus and rectum (principal); R10.9 Unspecified abdominal pain
CPT/HCPCS: 36415; 83690; 85025

== ENCOUNTER → 2024-04-14 | Outpatient (CLI) | payer OTHER, SELFPAY ==
[2024-04-17 14:07] LABS: Pancreatic Elastase, Fecal > 800 (>200)
[2024-04-17 15:07] LABS: Calprotectin, Stool 156 ug/g (0-120)
== END | disposition home or self-care (01) ==
LOC: LABSPEC 17:59
PROVIDERS: PCP Family Medicine; Visit Provider Student in an Organized Health Care Education/Training Program
DX: K62.5 Hemorrhage of anus and rectum (principal); R10.9 Unspecified abdominal pain; K58.9 Irritable bowel syndrome, unspecified
CPT/HCPCS: 82653; 83630; 83993

== ENCOUNTER 2024-05-30 05:59 | Day surgery (SDC) | payer OTHER, SELFPAY ==
--- NOTE | 2024-05-26 23:31 | PAT.ANESEVAL ---
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 When Was Last Pacemaker Check QUESTION #4 FULL TEXT: You/Your Family Experience fever (hyperthermia) with Anesthesia Last Oral Intake Last Oral intake: Last Oral Intake NPO since Meds taken in AM with sips of water? Meds patient instructed to take am of surgery PONV PONV - engine inspector: PONV - engine inspector Female Yes 05/26/24 14:38 HX of Motion Sickness No 05/26/24 14:38 HX of N/V After Surgery No 05/26/24 14:38 Non-Smoker Yes 05/26/24 14:38 Duration of Surgery greater No 05/26/24 14:38 than 60 minutes Number of Risk Factors 2 05/26/24 14:38 PONV Score Moderate Risk 05/26/24 14:38 Height & Weight Height & Weight: Anesthesia: Height & Weight Height 5 ft 2 in 02/21/24 14:35 Respiratory Assessment Respiratory Assessment - engine inspector: Respiratory Tract Infection Hx - engine inspector Hx Respiratory Tract Infection No 05/26/24 14:38 STOP Sleep Apnea STOP Sleep Apnea - engine inspector: STOP Sleep Apnea - engine inspector Hx Hypertension Yes: ONLY WITH 05/26/24 14:38 Hx Sleep Apnea No 05/26/24 14:38 CPAP BIPAP Do you snore loudly (louder No 05/26/24 14:38 than talking or can be heard Do you often feel tired/ No 05/26/24 14:38 fatigued/ sleepy during daytime? Has anyone observed you stop No 05/26/24 14:38 breathing during sleep? STOP Results Negative 05/26/24 14:38 QUESTION #5 FULL TEXT : Do you snore loudly (louder than talking or can be heard through closed doors)? 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 Specify any problems Hx of Preganancy in last 3 No 05/26/24 14:38 Months Nurse Filling Out Transfusion DSCHRIBER 05/26/24 14:38 & Questions: Date: 05/26/24 05/26/24 14:38 Time: 14:39 05/26/24 14:38 Patient unable to answer at this time (ie. confused, unrespo /Reproduction History /Reproductive History - engine inspector: /Reproductive Hx- engine inspector Hx Now No 05/26/24 14:38 Gestational Age (in weeks): EDC: Hx Hx Para Hx Section SAB No 05/26/24 14:38 PFSH Medical History (Updated 05/26/24 @ 14:44 by Sandhya Dillon) Pancreatitis ADHD DMITRI (generalized anxiety disorder) Wears contact lenses Wears glasses Depression Anxiety Migraine headache Syncope Gastric reflux Non-smoker Shortness of breath on exertion Chronic cough History of Holter monitoring History of echocardiogram Cardiology follow-up encounter Chest pain Non-cardiac chest pain Symptomatic tachycardia Chronic allergic otitis media, unspecified ear Thyroid disease H/O cardiac murmur Anxiety and depression Home Medications ?Medication ?Instructions ?Recorded ?Last Taken ?Type levothyroxine 112 mcg tablet 112 mcg PO DAILY 11/14/23 12/16/23 22:00 History propranolol 10 mg tablet 10 mg PO DAILY 12/27/23 01/26/24 12:00 History juuilb-kvknclgq-mjgvovw 2 cap PO TID #200 caps 02/10/24 Unknown Rx 36,000-114,000-180,000 unit capsule,delay rel (Creon) atomoxetine 40 mg capsule 40 mg PO DAILY 05/26/24 Unknown History omeprazole 40 mg capsule,delayed 40 mg PO DAILY 05/26/24 Unknown History release Allergy/AdvReac Type Severity Reaction Status Date / Time No Known Allergies Allergy Verified 05/26/24 14:37 Family History Mother Hypertension Grandfather Hypertension Heart disease Skin cancer Grandmother CVA (cerebral vascular accident) Hypothyroid Father Seizures CVA (cerebral vascular accident) Aunt Breast cancer Heart disease Surgical History (Updated 05/26/24 @ 14:43 by Sandhya Dillon) History of esophagogastroduodenoscopy (EGD) Hx of wisdom tooth extraction Social History Smoking Status: Never smoker second hand exposure: No alcohol intake: never substance use type: does not use caffeine: Yes frequency: 1-2 times per week seatbelt use: always do you feel safe at home: Yes additional social history: [employer] 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 Normal sinus rhythm. Nonspecific T wave abnormality. Echo (EF%) pertinent findings: November 12, 2023. Ejection fraction 65%. PA pressure of 30 mmHg. No aortic stenosis is noted. Consult pertinent findings: December 18, 2023. Dr. Rubin. 1. Noncardiac chest pain-patient presents with atypical chest discomfort. Pain is sharp. No radiation. No EKG changes. Troponin enzymes are normal. CT scan and echocardiogram were normal. Additional pertinent findings: Holter monitor. December 19, 2023. Average rhythm was normal sinus rhythm. Total of 2 ventricular ectopic beats. No supraventricular ectopic beats. No atrial fibrillation. The patient kept a 48-hour diary which noted shortness of breath, rapid heart rate, dizziness/headache, chest pain, and palpitations which correlated with normal sinus rhythm and/or sinus tachycardia. Recommendation Anesthesia Recommendation Anesthesia recommendation: OPTIMIZED for anesthesia
[2024-05-30] VITALS (9 sets, daily range): BP systolic 89–143; BP diastolic 63–97; PULSE 85–92; RESP 16–18; TEMP 36.3–36.9; O2SAT 98–100; BMI 23.0
--- NOTE | 2024-05-30 | COLBX_PTH ---
PATIENT: YOVANY MANUEL LOC: EN U#:[id number] AGE/SX: 38/F ROOM: RE05/30/[address]: Dr. Cash Barker DO : 1985 BED: DIS: 05/30/2024 SPEC #: [id number] RECD: 05/30/24 10:12 STATUS: SHAW REYvonne #: [id number] PRIYA: 05/30/24 00:[address]: Cash Barker DEPT: SURGICAL PATHOLOGY RECD BY: Ben Dhillon ENTERED: 05/30/24 10:13 SP TYPE: COLON BX OT DR: Dr. Eileen Cabral DO Tissues: A - Ileum, NOS B - Cecum, NOS C - Sigmoid colon biopsy Procedures: Surgery Specimen Level IV HEADER OPERATION: Colonoscopy, biopsy PRE-OP DIAGNOSIS: Bright red blood per rectum, abdominal pain TISSUE SUBMITTED: A- Terminal ileum biopsy, B- Cecum biopsy, C- Sigmoid polyp biopsy MICROSCOPIC DIAGNOSIS A. Terminal ileum, biopsy: Fragments of small intestinal mucosa, no pathologic diagnosis. See comment. B. Cecum, biopsy: Fragments of colonic mucosa, no pathologic diagnosis. C. Sigmoid polyp, biopsy: Tubular adenoma. AKIKOJadyn 05/31/2024 COMMENT A. Prominent lymphoid aggregates are noted. MICROSCOPIC DESCRIPTION Slides are reviewed. GROSS DESCRIPTION A. Received in fixative is one container labeled with the patient's name and designated Terminal ileum biopsy. The specimen consists of two irregular fragments of light pena soft tissue that in aggregate measure 1.5 x 0.2 x 0.2 cm. The specimen is totally submitted in one cassette. B. Received in fixative is one container labeled with the patient's name and designated Cecum biopsy. The specimen consists of multiple irregular fragments of light pena soft tissue that in aggregate measure 1.3 x 0.2 x 0.2 cm. The specimen is totally submitted in one cassette. C. Received in fixative is one container labeled with the patient's name and designated Sigmoid polyp biopsy. The specimen consists of two irregular fragments of light pena soft tissue that in aggregate measure 0.8 x 0.2 x 0.2 cm. The specimen is totally submitted in one cassette. 05/30/2024 TC:1 CPT:04837s0
[2024-05-30 06:40] LABS: Internal QC Validated? YES +Cl - CLEAR BKGD; Pregnancy, Urine Negative Negative
--- NOTE | 2024-05-30 06:46 | PCM.PRE.AN2 ---
ASA Classification* ASA Classification ASA Classification: 2 Assessment & Plan Anesthesia* Anesthesia Assessment Anesthesia Assessment: Discussed sedation and/or anesthesia options, risks, benefits, and alternatives with patient/parents/legal guardian/POA. Questions invited. The patient/parents/legal guardian/POA seems to understand and agrees to proceed with anesthesia plan. Reviewed the physical assessment, medical history, allergy history and patient home medications list prior to surgery/procedure/anesthetic and documented any changes. Performed airway and anesthesia risk assessments. Anesthesia Type Anesthesia Type: MAC History Source History Obtained from:: Patient and Chart Anesthesia Focused Assessment* Temperature: 98.5 F Pulse Rate: 86 Blood Pressure: 143/97 Respiratory Rate: 16 Pulse Ox: 100 Airway Assessment Mouth opens: >3 cm Mallampati Score: II Teeth Condition: Intact Neck Range of motion (ROM): Full ROM Focused Labs Anesthesia Preop lab: CBC WBC 6.9 K/mm3 (4.4-11.0) 04/13/24 14:17 04/13/24 RBC 4.32 M/mm3 (4.2-5.4) 04/13/24 14:17 04/13/24 Hgb 12.4 g/dL (12.0-15.0) 04/13/24 14:17 04/13/24 Hct 37.1 % (37-47) 04/13/24 14:17 04/13/24 Plt Count 343 K/mm3 (150-450) 04/13/24 14:17 04/13/24 CHEMISTRY Potassium 3.8 mmol/L (3.5-5.1) 12/18/23 04:30 12/18/23 Sodium 140 mmol/L (136-145) 12/18/23 04:30 12/18/23 Magnesium 1.5 mg/dL (1.6-2.6) L 07/27/19 11:34 07/27/19 Phosphorus 3.3 mg/dL (2.5-4.9) 10/25/23 14:20 10/25/23 BUN 15 mg/dL (7-18) 12/18/23 04:30 12/18/23 Creatinine 0.92 mg/dL (0.55-1.02) 12/18/23 04:30 12/18/23 Glucose 86 mg/dL (74-106) 12/18/23 04:30 12/18/23 TSH 1.620 uIU/mL (0.358-3.740) 12/17/23 09:45 12/17/23 COAG PT 13.0 SECONDS (11.7-14.9) 04/13/21 15:55 04/13/21 HCG, Quant 88763 mIU/mL (<9 non-preg) H 04/24/13 10:39 04/24/13 Urine Test Negative Negative 05/30/24 06:15 05/30/24 Pre-Assessment Diagnosis/Proposed Procedure Planned Operative Procedure(s): CSCOPE Anesthesia History 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 When Was Last Pacemaker Check QUESTION #4 FULL TEXT: You/Your Family Experience fever (hyperthermia) with Anesthesia Last Oral Intake Last Oral intake: Last Oral Intake NPO since 03:00 05/30/24 06:33 Meds taken in AM with sips of No 05/30/24 06:33 water? Meds patient instructed to take am of surgery PONV PONV - environmental protection specialist: PONV - environmental protection specialist Female Yes 05/26/24 14:38 HX of Motion Sickness No 05/26/24 14:38 HX of N/V After Surgery No 05/26/24 14:38 Non-Smoker Yes 05/26/24 14:38 Duration of Surgery greater No 05/26/24 14:38 than 60 minutes Number of Risk Factors 2 05/26/24 14:38 PONV Score Moderate Risk 05/26/24 14:38 Height & Weight Height & Weight: Anesthesia: Height & Weight Height 5 ft 2 in 05/30/24 06:33 Weight: 57.1 kg 05/30/24 06:33 Body Mass Index (BMI) 23.0 05/30/24 06:33 Respiratory Assessment Respiratory Assessment - environmental protection specialist: Respiratory Tract Infection Hx - environmental protection specialist Hx Respiratory Tract Infection No 05/26/24 14:38 STOP Sleep Apnea STOP Sleep Apnea - environmental protection specialist: STOP Sleep Apnea - environmental protection specialist Hx Hypertension Yes: ONLY WITH 05/26/24 14:38 Hx Sleep Apnea No 05/26/24 14:38 CPAP BIPAP Do you snore loudly (louder No 05/26/24 14:38 than talking or can be heard Do you often feel tired/ No 05/26/24 14:38 fatigued/ sleepy during daytime? Has anyone observed you stop No 05/26/24 14:38 breathing during sleep? STOP Results Negative 05/26/24 14:38 QUESTION #5 FULL TEXT : Do you snore loudly (louder than talking or can be heard through closed doors)? 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 Specify any problems Hx of Preganancy in last 3 No 05/26/24 14:38 Months Nurse Filling Out Transfusion DSCHRIBER 05/26/24 14:38 & Questions: Date: 05/26/24 05/26/24 14:38 Time: 14:39 05/26/24 14:38 Patient unable to answer at this time (ie. confused, unrespo /Reproduction History /Reproductive History - environmental protection specialist: /Reproductive Hx- environmental protection specialist Hx Now No 05/26/24 14:38 Gestational Age (in weeks): EDC: Hx Hx Para Hx Section SAB No 05/26/24 14:38 PFSH Medical History Pancreatitis ADHD DMITRI (generalized anxiety disorder) Wears contact lenses Wears glasses Depression Anxiety Migraine headache Syncope Gastric reflux Non-smoker Shortness of breath on exertion Chronic cough History of Holter monitoring History of echocardiogram Cardiology follow-up encounter Chest pain Non-cardiac chest pain Symptomatic tachycardia Chronic allergic otitis media, unspecified ear Thyroid disease H/O cardiac murmur Anxiety and depression Home Medications ?Medication ?Instructions ?Recorded ?Last Taken ?Type levothyroxine 112 mcg tablet 112 mcg PO DAILY 11/14/23 05/29/24 History propranolol 10 mg tablet 10 mg PO DAILY 12/27/23 05/29/24 History omlttn-mfbhqecq-ydkjfjr 2 cap PO TID #200 caps 02/10/24 05/28/24 Rx 36,000-114,000-180,000 unit capsule,delay rel (Creon) atomoxetine 40 mg capsule 40 mg PO DAILY 05/26/24 05/29/24 History omeprazole 40 mg capsule,delayed 40 mg PO DAILY 05/26/24 05/29/24 History release Allergy/AdvReac Type Severity Reaction Status Date / Time No Known Allergies Allergy Verified 05/26/24 14:37 Family History Mother Hypertension Grandfather Hypertension Heart disease Skin cancer Grandmother CVA (cerebral vascular accident) Hypothyroid Father Seizures CVA (cerebral vascular accident) Aunt Breast cancer Heart disease Surgical History History of esophagogastroduodenoscopy (EGD) Hx of wisdom tooth extraction Social History Smoking Status: Never smoker second hand exposure: No alcohol intake: never substance use type: does not use caffeine: Yes frequency: 1-2 times per week seatbelt use: always do you feel safe at home: Yes additional social history: Jayden Sorto 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
--- NOTE | 2024-05-30 06:48 | PCM.PRE.AN2 ---
ASA Classification* ASA Classification ASA Classification: 2 Assessment & Plan Anesthesia* Anesthesia Assessment Anesthesia Assessment: Discussed sedation and/or anesthesia options, risks, benefits, and alternatives with patient/parents/legal guardian/POA. Questions invited. The patient/parents/legal guardian/POA seems to understand and agrees to proceed with anesthesia plan. Reviewed the physical assessment, medical history, allergy history and patient home medications list prior to surgery/procedure/anesthetic and documented any changes. Performed airway and anesthesia risk assessments. Anesthesia Type Anesthesia Type: MAC Anesthesia Focused Assessment* Temperature: 98.5 F Pulse Rate: 86 Blood Pressure: 143/97 Respiratory Rate: 16 Pulse Ox: 100 Airway Assessment Mouth opens: >3 cm Mallampati Score: II Focused Labs Anesthesia Preop lab: CBC WBC 6.9 K/mm3 (4.4-11.0) 04/13/24 14:17 04/13/24 RBC 4.32 M/mm3 (4.2-5.4) 04/13/24 14:17 04/13/24 Hgb 12.4 g/dL (12.0-15.0) 04/13/24 14:17 04/13/24 Hct 37.1 % (37-47) 04/13/24 14:17 04/13/24 Plt Count 343 K/mm3 (150-450) 04/13/24 14:17 04/13/24 CHEMISTRY Potassium 3.8 mmol/L (3.5-5.1) 12/18/23 04:30 12/18/23 Sodium 140 mmol/L (136-145) 12/18/23 04:30 12/18/23 Magnesium 1.5 mg/dL (1.6-2.6) L 07/27/19 11:34 07/27/19 Phosphorus 3.3 mg/dL (2.5-4.9) 10/25/23 14:20 10/25/23 BUN 15 mg/dL (7-18) 12/18/23 04:30 12/18/23 Creatinine 0.92 mg/dL (0.55-1.02) 12/18/23 04:30 12/18/23 Glucose 86 mg/dL (74-106) 12/18/23 04:30 12/18/23 TSH 1.620 uIU/mL (0.358-3.740) 12/17/23 09:45 12/17/23 COAG PT 13.0 SECONDS (11.7-14.9) 04/13/21 15:55 04/13/21 HCG, Quant 69403 mIU/mL (<9 non-preg) H 04/24/13 10:39 04/24/13 Urine Test Negative Negative 05/30/24 06:15 05/30/24 Pre-Assessment Diagnosis/Proposed Procedure Planned Operative Procedure(s): CSCOPE Anesthesia History Anesthesia History - test director: Anesthesia History - test director Hx Hospitalization Yes: 12/2023 PANCREATITIS 05/26/24 14:38 Any Problems With Anesthesia No 05/26/24 14:38 Cholinesterase deficiency No 05/26/24 14:38 You/Your Family Experience No 05/26/24 14:38 fever (hyperthermia) with Relationship Recent Exposure to Contagious No 05/30/24 06:32 Disease Does patient have nerve No 05/26/24 14:38 stimulator Patient instructed to have device shut off --Does patient have Pacemaker No 05/30/24 06:33 or ICD? When Was Last Pacemaker Check QUESTION #4 FULL TEXT: You/Your Family Experience fever (hyperthermia) with Anesthesia Last Oral Intake Last Oral intake: Last Oral Intake NPO since 03:00 05/30/24 06:33 Meds taken in AM with sips of No 05/30/24 06:33 water? Meds patient instructed to take am of surgery PONV PONV - test director: PONV - test director Female Yes 05/26/24 14:38 HX of Motion Sickness No 05/26/24 14:38 HX of N/V After Surgery No 05/26/24 14:38 Non-Smoker Yes 05/26/24 14:38 Duration of Surgery greater No 05/26/24 14:38 than 60 minutes Number of Risk Factors 2 05/26/24 14:38 PONV Score Moderate Risk 05/26/24 14:38 Height & Weight Height & Weight: Anesthesia: Height & Weight Height 5 ft 2 in 05/30/24 06:33 Weight: 57.1 kg 05/30/24 06:33 Body Mass Index (BMI) 23.0 05/30/24 06:33 Respiratory Assessment Respiratory Assessment - test director: Respiratory Tract Infection Hx - test director Hx Respiratory Tract Infection No 05/26/24 14:38 STOP Sleep Apnea STOP Sleep Apnea - test director: STOP Sleep Apnea - test director Hx Hypertension Yes: ONLY WITH 05/26/24 14:38 Hx Sleep Apnea No 05/26/24 14:38 CPAP BIPAP Do you snore loudly (louder No 05/26/24 14:38 than talking or can be heard Do you often feel tired/ No 05/26/24 14:38 fatigued/ sleepy during daytime? Has anyone observed you stop No 05/26/24 14:38 breathing during sleep? STOP Results Negative 05/26/24 14:38 QUESTION #5 FULL TEXT : Do you snore loudly (louder than talking or can be heard through closed doors)? 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 Specify any problems Hx of Preganancy in last 3 No 05/26/24 14:38 Months Nurse Filling Out Transfusion DSCHRIBER 05/26/24 14:38 & Questions: Date: 05/26/24 05/26/24 14:38 Time: 14:39 05/26/24 14:38 Patient unable to answer at this time (ie. confused, unrespo /Reproduction History /Reproductive History - test director: /Reproductive Hx- test director Hx Now No 05/26/24 14:38 Gestational Age (in weeks): EDC: Hx Hx Para Hx Section SAB No 05/26/24 14:38 PFSH Medical History Pancreatitis ADHD DMITRI (generalized anxiety disorder) Wears contact lenses Wears glasses Depression Anxiety Migraine headache Syncope Gastric reflux Non-smoker Shortness of breath on exertion Chronic cough History of Holter monitoring History of echocardiogram Cardiology follow-up encounter Chest pain Non-cardiac chest pain Symptomatic tachycardia Chronic allergic otitis media, unspecified ear Thyroid disease H/O cardiac murmur Anxiety and depression Home Medications ?Medication ?Instructions ?Recorded ?Last Taken ?Type levothyroxine 112 mcg tablet 112 mcg PO DAILY 11/14/23 05/29/24 History propranolol 10 mg tablet 10 mg PO DAILY 12/27/23 05/29/24 History fslcrj-qgqichcy-qgkhjqw 2 cap PO TID #200 caps 02/10/24 05/28/24 Rx 36,000-114,000-180,000 unit capsule,delay rel (Creon) atomoxetine 40 mg capsule 40 mg PO DAILY 05/26/24 05/29/24 History omeprazole 40 mg capsule,delayed 40 mg PO DAILY 05/26/24 05/29/24 History release Allergy/AdvReac Type Severity Reaction Status Date / Time No Known Allergies Allergy Verified 05/26/24 14:37 Family History Mother Hypertension Grandfather Hypertension Heart disease Skin cancer Grandmother CVA (cerebral vascular accident) Hypothyroid Father Seizures CVA (cerebral vascular accident) Aunt Breast cancer Heart disease Surgical History History of esophagogastroduodenoscopy (EGD) Hx of wisdom tooth extraction Social History Smoking Status: Never smoker second hand exposure: No alcohol intake: never substance use type: does not use caffeine: Yes frequency: 1-2 times per week seatbelt use: always do you feel safe at home: Yes additional social history: Jayden Sorto 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
--- NOTE | 2024-05-30 06:51 | PCM.HP.STD ---
HPI - General General Date of Admission: 05/30/24 Date of Service: 05/30/24 Chief Complaint: Lower GI bleeding HPI Narrative YOVANY MANUEL, is a 38 F who presents for the evaluation of lower GI bleeding. *BGI established 12.27.23 pt reports that she was referred to GI following her ER visit 12.17.23 due to inability to eat. Pt reports these symptoms began before ER visit, but have worsened. Pt reports that when she eats she feels nauseated, dizzy, and a squeezing in her epigastric area. Pt reports a long hx of HB, but has been taking OTC omeprazole which has been helpful. She presented to the ED on 12/17/2023 with a complaint of shortness of breath and chest pain. 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 She says her symptoms have been going on for about a year now have been gradually worsening. She was told by her PCP that it was due to anxiety and she was managed for this. However his symptoms persisted so she was referred for 2D echo. She says she was told that she had pulmonary hypertension per the 2D echo and so she has been referred to see cardiology. However her pain intensified over the last few days. Pain was retrosternal and sharp, aggravated by movement and relieved by rest. This was seen with her shortness of breath. She denied any history of blood clots though she said she had a strong history of blood clots in her family with namely her father and her grandmother having blood clots. She denies any long distance travel recently. She was seen in the ED on 12/13/2023 for the symptoms and had a CT of the chest which was negative for any evidence of PE. The chest pain is not reproducible with palpation. She did have a 2D echo done on 11/12/2023 which showed RVSP of 30 mmHg and it is on this basis that she says she was told that she has pulmonary hypertension. Vitals in the ED were temperature of 97.9, heart rate of 77 and blood pressure 129/86. According to the ED doctor her heart rate went up to the 150s when she got up to ambulate. Respiratory rate was 18 and she was saturating at 99% on room air. CBC was unremarkable and BMP was significant for creatinine of 1.14. Initial troponin was less than 3 and BNP was 8.6. TSH was 1.62. Chest x-ray showed no acute cardiopulmonary pathology. CTA was not done as she had just had a CTA 4 days ago. She has been admitted to be managed for chest pain and shortness of breath with ambulatory tachycardia of unknown etiology. She was seen by cardiology for possible cardiac issue causing her symptoms and she underwent testing and was determined not to have a cardiac etiology of her symptoms. She Presented today for further evaluation. She complains of bloating and fullness when she eats. It does not matter what type of food she eats she gets the symptoms. She does have a past medical history of hypothyroidism and takes levothyroxine on a daily basis.. OV 1.2.24 PT here today with new complaints of blood in her stool and mucous over the past month. This is new to her and with all that's going on with her health she was concerned. She had one bm with a substantia amount of blood and the rest have just been when she is wiping. [facility] Medical History Pancreatitis ADHD DMITRI (generalized anxiety disorder) Wears contact lenses Wears glasses Depression Anxiety Migraine headache Syncope Gastric reflux Non-smoker Shortness of breath on exertion Chronic cough History of Holter monitoring History of echocardiogram Cardiology follow-up encounter Chest pain Non-cardiac chest pain Symptomatic tachycardia Chronic allergic otitis media, unspecified ear Thyroid disease H/O cardiac murmur Anxiety and depression Home Medications ?Medication ?Instructions ?Recorded ?Last Taken ?Type levothyroxine 112 mcg tablet 112 mcg PO DAILY 11/14/23 05/29/24 History propranolol 10 mg tablet 10 mg PO DAILY 12/27/23 05/29/24 History buxvqe-foszmhke-afqpkjm 2 cap PO TID #200 caps 02/10/24 05/28/24 Rx 36,000-114,000-180,000 unit capsule,delay rel (Creon) atomoxetine 40 mg capsule 40 mg PO DAILY 05/26/24 05/29/24 History omeprazole 40 mg capsule,delayed 40 mg PO DAILY 05/26/24 05/29/24 History release Allergy/AdvReac Type Severity Reaction Status Date / Time No Known Allergies Allergy Verified 05/26/24 14:37 Family History Mother Hypertension Grandfather Hypertension Heart disease Skin cancer Grandmother CVA (cerebral vascular accident) Hypothyroid Father Seizures CVA (cerebral vascular accident) Aunt Breast cancer Heart disease Surgical History History of esophagogastroduodenoscopy (EGD) Hx of wisdom tooth extraction Social History Smoking Status: Never smoker second hand exposure: No alcohol intake: never substance use type: does not use caffeine: Yes frequency: 1-2 times per week seatbelt use: always do you feel safe at home: Yes additional social history: [place] 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 [employer] Constitutional Constitutional: Denies fatigue, fever(s), poor appetite, weight gain or weight loss Gastrointestinal Gastrointestinal: Denies belching, bloating, change in bowel habits, change in stool character, chewing difficulty, coffee ground emesis, constipation, cramping, diarrhea, dyspepsia, dysphagia, early satiety, excessive flatus, fecal incontinence, heartburn, hematemesis, hematochezia, hemorrhoids, loose stools, melena, nausea, odynophagia, rectal bleeding, tenesmus, vomiting or weight changes Vital Signs Vital Signs Vital Signs: 05/30/24 06:32 05/30/24 06:33 05/30/24 06:46 Temperature 98.5 F 98.5 F Temperature Source Temporal Pulse Rate 86 86 Respiratory Rate 16 16 Respiratory Pattern Normal Blood Pressure 143/97 H 143/97 H Blood Pressure Mean 112 Blood Pressure Source Monitor Blood Pressure Position Semi-Fowlers Blood Pressure Location Right Arm Pulse Ox 100 100 Oxygen Delivery Method Room Air 05/30/24 06:48 Temperature 98.5 F Temperature Source Pulse Rate 86 Respiratory Rate 16 Respiratory Pattern Blood Pressure 143/97 H Blood Pressure Mean Blood Pressure Source Blood Pressure Position Blood Pressure Location Pulse Ox 100 Oxygen Delivery Method Weight Weight: 125 lb 14.143 oz Body Mass Index (BMI) 23.0 Physical Exam Const alert, oriented x3, no apparent distress and healthy appearing General Appearance: cooperative GI normal to inspection, nondistended, normoactive bowel sounds, soft to palpation, non-tender and non-distended Percussion: normal to percussion Rectal Exam: deferred Results Lab / Micro Data Labs: Laboratory Results - last 24 hr 05/30/24 06:15: Urine Test Negative Assessment & Plan Assessment/Plan (1) Bright red blood per rectum: (2) Abdominal pain: PLAN: Plan Assessment and Plan Assessment and Plan (1) Abdominal pain: Status: Acute Plan: This is a 38 yo female pt with hx of acute pancreatitis, pancreatic divisum, and GERD. She is here today for new complaints of bright red blood in her stool and mucous over the past month. She had one episode of substantial blood with a bm but nothing else to that extent. The bleeding is likely related to hemorrhoids or diverticulosis. She does have a hx of hemorrhoids during her . WIll order CBC to assess her hemoglobin. WIll also order lipase to monitor after treatment with Creon. WIll order stool tests for inflammation and elastase. -Stool testing -CBC and lipase -f/u in 3 months -Consider EGD (2) Bright red blood per rectum: Status: Acute Orders: Orders CBC W/Diff, Automated Today K62.5 - Hemorrhage of anus and rectum, R10.9 - Unspecified abdominal pain Lipase Today K62.5 - Hemorrhage of anus and rectum, R10.9 - Unspecified abdominal pain Calprotectin, Stool Today K62.5 - Hemorrhage of anus and rectum, R10.9 - Unspecified abdominal pain Stool Lactoferrin/WBC Today K58.9 - Irritable bowel syndrome, unspecified Pancreatic Elastase, Fecal Today K62.5 - Hemorrhage of anus and rectum, R10.9 - Unspecified abdominal pain
--- NOTE | 2024-05-30 07:52 | OP.CCLET_ITS ---
05/30/2024 Eileen Cabral [address] [place] [address] Re : Colonoscopy procedure for Apurva Savage Dear Dr. Cabral This procedure was performed on Thursday, May 30, 2024. My impressions and recommendations are as follows: Impressions : - Anal fissure found on perianal exam. - One 7 mm polyp in the sigmoid colon, removed with a hot snare. Resected and retrieved. - Localized mild inflammation was found in the cecum secondary to colitis. Biopsied. - Mild inflammation was found in the ileum secondary to ileitis. Biopsied. Recommendations : - Discharge patient to home. - Resume previous diet. - Continue present medications. - Await pathology results. - Repeat colonoscopy in 5 years for surveillance. - Return to GI office. My findings are described in the full procedure note, which is enclosed. If I can be of further assistance, please feel free to contact me at . Sincerely, Cash Barker, 05/30/2024 7:51:41 AM This report has been signed electronically.
--- NOTE | 2024-05-30 07:52 | OP.COLON_ITS ---
Patient Name: Apurva Savage Procedure Date: 05/30/2024 7:22 AM Date of : 1985 Age: 38 Procedure: Colonoscopy Indications: Hematochezia Providers: Cash Barker DO Referring MD: Eileen Cabral Medicines: Monitored Anesthesia Care Patient Profile: This is a 38 year old female. Refer to note in patient chart for documentation of history and physical. Last Colonoscopy: none. The patient's first colonoscopy is today. Complications: No immediate complications. Procedure: Pre-Anesthesia Assessment: - Prior to the procedure, a History and Physical was performed, and patient medications and allergies were reviewed. The patient is competent. The risks and benefits of the procedure and the sedation options and risks were discussed with the patient. All questions were answered and informed consent was obtained. Patient identification and proposed procedure were verified by the physician in the pre-procedure area. Mental Status Examination: alert and oriented. Airway Examination: normal oropharyngeal airway and neck mobility. Respiratory Examination: clear to auscultation. CV Examination: normal. Prophylactic Antibiotics: The patient does not require prophylactic antibiotics. Prior Anticoagulants: The patient has taken no anticoagulant or antiplatelet agents except for NSAID medication. ASA Grade Assessment: II - A patient with mild systemic disease. After reviewing the risks and benefits, the patient was deemed in satisfactory condition to undergo the procedure. The anesthesia plan was to use monitored anesthesia care (MAC). Immediately prior to administration of medications, the patient was re-assessed for adequacy to receive sedatives. The heart rate, respiratory rate, oxygen saturations, blood pressure, adequacy of pulmonary ventilation, and response to care were monitored throughout the procedure. The physical status of the patient was re-assessed after the procedure. After I obtained informed consent, the scope was passed under direct vision. Throughout the procedure, the patient's blood pressure, pulse, and oxygen saturations were monitored continuously. The Colonoscope was introduced through the anus and advanced to the terminal ileum. The colonoscopy was performed without difficulty. The patient tolerated the procedure well. The quality of the bowel preparation was adequate. The terminal ileum, ileocecal valve, appendiceal orifice, and rectum were photographed. Scope In: 7:32:59 AM Scope Withdrawal Time 0 hours 9 minutes 59 seconds Scope Out: 7:45:21 AM Total Procedure Duration Time 0 hours 12 minutes 22 seconds Findings: An anal fissure was found on perianal exam. A 7 mm polyp was found in the sigmoid colon. The polyp was sessile. The polyp was removed with a hot snare. Resection and retrieval were complete. Verification of patient identification for the specimen was done. Estimated blood loss was minimal. Localized mild inflammation characterized by congestion (edema) and loss of vascularity was found in the cecum. Biopsies were taken with a cold forceps for histology. Verification of patient identification for the specimen was done. Estimated blood loss was minimal. Localized mild inflammation characterized by congestion (edema) and loss of vascularity was found in the terminal ileum. Biopsies were taken with a cold forceps for histology. Verification of patient identification for the specimen was done. Estimated blood loss was minimal. Impression: - Anal fissure found on perianal exam. - One 7 mm polyp in the sigmoid colon, removed with a hot snare. Resected and retrieved. - Localized mild inflammation was found in the cecum secondary to colitis. Biopsied. - Mild inflammation was found in the ileum secondary to ileitis. Biopsied. Recommendation: - Discharge patient to home. - Resume previous diet. - Continue present medications. - Await pathology results. - Repeat colonoscopy in 5 years for surveillance. - Return to GI office. Procedure Code(s): --- Professional --- 57466, Colonoscopy, flexible; with removal of tumor(s), polyp(s), or other lesion(s) by snare technique 17873, 59, Colonoscopy, flexible; with biopsy, single or multiple CPT copyright 2021 [employer]. All rights reserved. The codes documented in this report are preliminary and upon lead investigator review may be revised to meet current compliance requirements. Cash Barker DO 05/30/2024 7:51:41 AM This report has been signed electronically. Number of Addenda: 0 Note Initiated On: 05/30/2024 7:22 AM
--- NOTE | 2024-05-30 07:53 | PCM.POST.ANE ---
Anesthesia: Postop Eval I Current Vital Signs Temperature: 97.4 F Pulse Rate: 88 Blood Pressure: 89/66 Respiratory Rate: 18 Pulse Ox: 98 Oxygen Delivery Method: Room Air Assessment Airway patent: Yes Spontaneous unlabored respirations: Yes Mental status: Asleep nausea: No Vomiting: No Anesthesia Complication: No Fluid Hydration Crystalloid volume administer (ml): 50 Total IV fluid infused: 50 Progress Note Anesthesia document: Postop Eval 1 completed: Yes
--- NOTE | 2024-05-30 10:56 | PCM.POSTANE2 ---
Anesthesia Postop Eval I Sum Postop Eval Completion status Anesthesia document: Postop Eval 1 completed: Yes Anesthesia Postop Eval I Summary Anesthesia Postop Eval I Summary: Anesthesia Postop Eval I: Assessment Summary Airway patent Yes 05/30/24 07:54 [email or web address] Spontaneous unlabored Yes 05/30/24 07:54 [email or web address] respirations Mental status Asleep 05/30/24 07:54 [email or web address] nausea No 05/30/24 07:54 [email or web address] Vomiting No 05/30/24 07:54 [email or web address] Anesthesia Postop Eval I: Fluid Summary Crystalloid volume administer 50 05/30/24 07:54 [email or web address] (ml) Colloids volume administered ( ml) Blood Product volume administered (ml) Total IV fluid infused 50 05/30/24 07:54 [email or web address] Anesthesia Postop Eval I: Summary Notes Anesthesia Complication No 05/30/24 07:54 [email or web address] Anesthesia Complication Comment: Post-operative progress note Anesthesia: Postop Eval II Evaluation Mental status: Awake and Calm Pain Level: 0 nausea: No Vomiting: No Complications Anesthesia Complication: No
== END 2024-05-30 08:34 | disposition home or self-care (01) ==
LOC: EN 05:59 → AC 06:03
PROVIDERS: Anesthesiology; PCP Family Medicine; Referring Provider Family Medicine; Visit Provider Internal Medicine Gastroenterology
PROC: 0DJD8ZZ Inspection of Lower Intestinal Tract, Via Natural or Artificial Opening Endoscopic (ICD-10-PCS; CPT 45378; principal; 2024-05-30 06:55)
DX: K92.1 Melena (principal); I27.20 Pulmonary hypertension, unspecified; K63.5 Polyp of colon; K60.2 Anal fissure, unspecified; R07.2 Precordial pain; K52.9 Noninfective gastroenteritis and colitis, unspecified; F41.9 Anxiety disorder, unspecified; Z79.899 Other long term (current) drug therapy
CPT/HCPCS: 45385; 45380; 81025; 88305; A4216; J2405

== ENCOUNTER → 2024-07-10 | Outpatient (CLI) | payer OTHER, SELFPAY ==
[2024-07-12 15:08] LABS: Calprotectin, Stool 149 ug/g (0-120)
== END | disposition home or self-care (01) ==
PROVIDERS: PCP Family Medicine; Referring Provider Student in an Organized Health Care Education/Training Program; Visit Provider Student in an Organized Health Care Education/Training Program
DX: K62.5 Hemorrhage of anus and rectum (principal)
CPT/HCPCS: 83993

== ENCOUNTER → 2024-07-26 | Outpatient (CLI) | payer OTHER, SELFPAY ==
[2024-07-26 15:46] LABS: CRP < 3.00 mg/L (0.0-3.0)
== END | disposition home or self-care (01) ==
LOC: LAB 14:34
PROVIDERS: PCP Family Medicine; Visit Provider Family Medicine
DX: M25.50 Pain in unspecified joint (principal); K86.1 Other chronic pancreatitis
CPT/HCPCS: 86140

== ENCOUNTER → 2024-08-14 | Outpatient (CLI) | payer OTHER, SELFPAY ==
--- NOTE | 2024-08-14 14:17 | RAD_ITS ---
PROCEDURE: CERV SPINE 2 OR 3 VIEWS 08/14/2024 REASON FOR EXAM: HEADACHES TECHNIQUE: 3 views of the cervical spine. AP, lateral and open-mouth odontoid COMPARISON: None available FINDINGS: Cervical spine is visualized on the lateral view from the skull base to T2. No fracture or malalignment. Straightening may represent positioning or spasm. No prevertebral soft tissue swelling. The disc spaces appear within limits. Visualized apices appear clear. RAD/Cerv Spine 2 or 3 Views IMPRESSION: Straightening may represent positioning or spasm. Reading Location: [id number]
== END | disposition home or self-care (01) ==
LOC: MTRAD 14:17
PROVIDERS: PCP Family Medicine; Referring Provider Chiropractor; Visit Provider Chiropractor
DX: R51.9 Headache, unspecified (principal)
CPT/HCPCS: 72040

== ENCOUNTER → 2024-11-24 | Outpatient (CLI) | payer OTHER, SELFPAY ==
[2024-11-28 08:08] LABS: Calprotectin, Stool 93 ug/g (0-120)
== END | disposition home or self-care (01) ==
LOC: MTLAB 12:56
PROVIDERS: PCP Family Medicine; Referring Provider Student in an Organized Health Care Education/Training Program; Visit Provider Student in an Organized Health Care Education/Training Program
DX: R19.5 Other fecal abnormalities (principal)
CPT/HCPCS: 83993

== ENCOUNTER → 2025-01-25 | Outpatient (CLI) | payer OTHER, SELFPAY ==
[2025-01-25 13:23] LABS: AST(SGOT) 16 U/L (<=31); Alanine Aminotransfer ALT/SGPT 11 U/L (<=34); Albumin, Serum 4.3 g/dL (3.5-5.0); Alkaline Phosphatase 67 U/L (35-104); Anion Gap 10 (5-15); BUN 14 mg/dL (4-19); BUN/Creat Ratio 14.4 RATIO (10-20); CORTISOL AM 8.67 ug/dL (6.02-18.40); Calcium,Total 9.1 mg/dL (7.6-11.0); Carbon Dioxide 26.0 mmol/L (21.0-32.0); Chloride 102 mmol/L (98-108); Ferritin 48 ng/mL (22-378); Free T3 2.7 pg/mL (2.18-3.98); Globulin 2.9 g/dL (2.2-4.2); Glucose 104 mg/dL (70-99); Iron 131 ug/dL (50-170); Potassium 4.2 mmol/L (3.3-5.1); Vitamin D,25 Hydroxy 33.2 ng/mL (30-100)
[2025-01-26 10:03] LABS: Vitamin B12 492 pg/mL (180-914)
== END | disposition home or self-care (01) ==
LOC: MTLAB 09:45
PROVIDERS: PCP Family Medicine; Referring Provider Family Medicine; Visit Provider Family Medicine
DX: D64.9 Anemia, unspecified (principal); E03.9 Hypothyroidism, unspecified; R53.83 Other fatigue; Z51.81 Encounter for therapeutic drug level monitoring; E55.9 Vitamin D deficiency, unspecified
CPT/HCPCS: 36415; 80053; 82306; 82533; 82607; 82728; 83540; 84439; 84443; 84481; 86376; 86800

== ENCOUNTER → 2025-01-30 | Outpatient (CLI) | payer OTHER, SELFPAY ==
--- NOTE | 2025-01-30 09:27 | US_ITS ---
PROCEDURE: BREAST LIMITED UNILATERAL 01/30/2025 REASON FOR EXAM: F, Age 39 y/o, pain and burning in the upper-outer quadrant of the left breast. COMPARISON: Prior mammogram done earlier in the day.. TECHNIQUE: Procedure Code: USBRSTLIMIT Modality: US Procedure: BREAST LIMITED UNILATERAL. Sonographic imaging of the upper-outer quadrant of the left breast was performed. FINDINGS: There is fibroglandular tissue. No sonographic abnormality is seen. US/Breast Limited Unilateral IMPRESSION: No sonographic abnormality is seen. BI-RADS 1: NEGATIVE RECOMMENDATION: Routine annual follow-up in 1 Year Reading Location: [place] [id number]
--- NOTE | 2025-01-30 09:27 | BI_ITS ---
EXAM: DIAG MAMM W/CAD, BILAT 01/30/2025 CLINICAL HISTORY: F, Age 39 y/o , MASTODYNIA/LUMP L BREAST. Aunt with breast cancer. TECHNIQUE: Procedure Code: [id number] Modality: MG Procedure: DIAG MAMM W/CAD, BILAT. COMPARISON: Baseline study. FINDINGS: TISSUE DENSITY: The breasts are heterogeneously dense, which may obscure small masses. Bilateral Breast Mammographic Findings: No significant masses, calcifications or other abnormalities are identified. BI/DIAG MAMM W/CAD, BILAT IMPRESSION: Unremarkable screening mammogram. With the patient's history of left breast pa in, targeted sonographic correlation recommended. OVERALL FINAL ASSESSMENT BI-RADS 0: INCOMPLETE - NEED ADDITIONAL IMAGING EVALUATION. RECOMMENDATION: Ultrasound Recommended Additional Recommendation none A letter with findings and recommendations will be mailed to the patient. Reading Location: [place] [id number]
== END | disposition home or self-care (01) ==
LOC: OPBI 09:26
PROVIDERS: PCP Family Medicine; Referring Provider Family Medicine; Visit Provider Family Medicine
DX: N64.4 Mastodynia (principal); N63.20 Unspecified lump in the left breast, unspecified quadrant
CPT/HCPCS: 76642; 77062; 77066; G0279